=== PATIENT | female | born 1965 | race Caucasian/White ===

== ENCOUNTER 2020-02-23 11:49 | Emergency (ER) | payer OTHER, SELFPAY ==
[2020-02-23 11:58] VITALS: PULSE 96; RESP 18; TEMP 36.6; O2SAT 98; BMI 38.0
--- NOTE | 2020-02-23 12:18 | PC.NURSE ---
neri pa at bedside for initial evaluation
--- NOTE | 2020-02-23 12:19 | PC.NURSE ---
PT INFORMED OF THE TREATMENT PLAN, PT IS AGREEABLE
--- NOTE | 2020-02-23 12:19 | ED.ABDPAIN ---
HPI - Abdominal Pain General Chief Complaint: Abdominal Pain Stated Complaint: r sided pain into back Time Seen by Provider: 02/23/20 12:03 Source: patient History of Present Illness HPI narrative: Patient is a 54-year-old female with a past medical history of hypertension, type 2 diabetes, asthma, kidney failure, MS, pseudoseizures, anxiety, stomach cancer and cervical cancer Presents with 2 days of worsening left-sided abdominal /flank pain as well as numbness and tingling down her left leg. admits to associated vomiting, reduced oral intake, diarrhea and nausea. denies fever chills. Patient was discharged from this hospital on January 02 after admission for intractable abdominal pain. CT of the abdomen and pelvis showed no acute abnormality, patient was evaluated by Dr. Manley from GI, he saw Ms. Moreno outpatient and is planning and endoscopy and colonoscopy in 4 days. She was also evaluated inpatient by Dr. Cooper who recommended an MRI of the lumbar and thoracic spine which came back normal. Patient has had an extensive workup at [facility] for her history of pseudoseizures, is not on any anti epileptic medications. Related Data Allergies Allergy/AdvReac Type Severity Reaction Status Date / Time shellfish derived Allergy Intermediate ANAPHYLAXIS Verified 02/23/20 12:50 [SHELLFISH DERIVED] aspirin [ASPIRIN] Allergy Unknown ANAPHYLAXIS Verified 02/23/20 12:50 gabapentin [GABAPENTIN] Allergy Unknown ANAPHYLAXIS Verified 02/23/20 12:50 ketorolac [From TORADOL] Allergy Unknown HIVES Verified 02/23/20 12:50 Penicillins [PENICILLINS] Allergy Unknown HIVES Verified 02/23/20 12:50 Review of Systems Constitutional: Denies chills, Denies fatigue, Denies fever(s), Denies headache(s), Reports poor appetite and Denies weight loss Reports system reviewed and no additional complaints, except as documented and Denies headache(s) Cardiovascular: Reports Abdominal Distension, Denies chest pain, Denies chest pain at rest, Denies chest pain with activity and Reports dyspnea Respiratory: Reports no additional respiratory complaints, Denies chest congestion, Denies cough and Reports dyspnea Gastrointestinal: Reports abdominal pain (left sided), Denies melena, Reports bloating, Denies hematochezia, Reports change in bowel habits, Denies coffee ground emesis, Denies constipation, Reports GI cramping (when urinating), Denies dyspepsia, Reports diarrhea, Reports nausea, Reports vomiting and Denies hematemesis Genitourinary: Reports no additional female genitourinary complaints, Denies abnormal vaginal bleeding, Denies difficulty voiding, Denies dysuria, Reports flank pain ( Left-sided) and Denies vaginal discharge Reports system reviewed and no additional complaints, except as documented and Denies headache(s) Endocrine: Denies fatigue Allergic/Immunologic: Reports no additional allergic/immunologic complaints Physical Exam Vital Signs: Vital Signs: Vital Signs Temp Pulse Resp Pulse Ox 02/23/20 11:58 98 F 96 18 98 Body Mass Index 38.0 Const: General: cooperative, no acute distress and well developed Nutritional Appearance: obese Orientation/consciousness: patient oriented x3 Limitations: no limitations HENMT: Head: Yes normal to inspection Face and sinus: Yes normal facial exam Neck: Neck: Yes normal visual inspection and Yes full ROM Resp: Effort & Inspection: normal respiratory effort and able to speak in complete sentences Auscultation: clear to auscultation bilaterally, no rales, no rhonchi and no wheezes Cardio: Rate: regular rate Rhythm: regular rhythm Heart sounds: no gallops, no murmurs and no rubs GI: Inspection: Yes obesity Palpation (GI): Soft to palpation and Tenderness to palpation present (GI) ( left-sided tenderness) Auscultation: normal bowel sounds : General: Yes CVA tenderness (left sided) Back/Spine/Pelvis: Back: CVA tenderness (left sided) Thoracic/Lumbar Spine: thoracic and lumbar spine normal to inspection, thoracic spinal tenderness (baseline TTP pain along entire cervical, thoracic and lumbar spine) and straight leg raise positive left at 30 degrees Skin: General skin exam: no rashes or lesions noted Neuro: General: patient oriented x3 Motor exam (neuro): Abnormal motor strength present (4/4 throughout) Deep tendon reflexes (DTR's): Left patellar reflex intensity grade: 2+, Right ankle reflex intensity grade: 2+ and Left ankle reflex intensity grade: 2+ Extrem: General: Yes normal to inspection and Yes full ROM Course Course Course Narrative: Patient is a 54-year-old female with a past medical history of hypertension, type 2 diabetes, asthma, kidney failure, MS, pseudoseizures, anxiety, stomach cancer and cervical cancer Presents with 2 days of worsening left-sided abdominal /flank pain as well as numbness and tingling down her left leg. admits to associated vomiting, reduced oral intake, diarrhea and nausea. denies fever chills. will get EKG, labs and reassess. Will give moderate dose of IV steroids as likely sciatica, patient had a recent MRI of the low back and it was negative. patient also had a recent CT of abdomen and pelvis so I will not repeat this today. patient has not been on antibiotics recently. patient has an appointment for an endoscopy and a colonoscopy in [address] Hathaway. FORMERLY [facility] Past Medical History Medical History (Updated 02/23/20 @ 12:39 by NICOLE Wilcox) Cervical cancer Kidney stones Stomach cancer TIA (transient ischemic attack) Surgical History (Updated 02/23/20 @ 12:46 by NICOLE Wilcox) Total knee replacement status Social History Social History Alcohol intake: current Alcohol intake frequency: holidays/special occasions only Smoked in Last 30 Days: No Use of substances other than those prescribed or required for medical reasons: No Advance Directives: No Advance Directives Information Provided: No
--- NOTE | 2020-02-23 12:25 | ECG_ITS ---
Test Reason : CHEST TIGHT Blood Pressure : / mmHG Vent. Rate : 089 BPM Atrial Rate : 089 BPM P-R Int : 148 ms QRS Dur : 084 ms QT Int : 382 ms P-R-T Axes : 062 077 054 degrees QTc Int : 464 ms Normal sinus rhythm Normal ECG When compared with ECG of 19-NOV-2019 14:01, No significant change was found Heart rate has decreased Referred By: Yanet Gordon Electronically Signed By:CHANDLER DWYER MD
[2020-02-23] MEDS: 0.9 % Sodium Chloride 1,000 ML 999 ML IVCONT (12:36)
[2020-02-23 12:44] LABS: MANUAL DIFF FLAG NO
[2020-02-23 12:45] LABS: Basophils Absolute Auto 0.1 X10*3/uL (0.0-0.2); Basophils Percent Auto 0.6 % (0-2); Eosinophils Absolute Auto 0.2 X10*3/uL (0.0-0.4); Hematocrit 40.4 % (37-47); Imm Gran Abs Auto 0.04 X10*3/uL (0.00-0.03); Imm Gran Pct Auto 0.5 % (0.0-0.4); Lymphocytes Absolute Auto 2.9 X10*3/uL (1.2-4.9); Lymphocytes Percent Auto 33.4 % (20-40); Mean Corpuscular HGB Conc 32.2 g/dl (31.0-35.0); Mean Corpuscular Hemoglobin 28.5 pg (27.0-33.0); Mean Corpuscular Volume 88.6 fL (80-98); Mean Platelet Volume 9.7 fL (9.4-12.3); Monocytes Absolute Auto 0.4 X10*3/uL (0.1-1.2); Monocytes Percent Auto 4.7 % (2-11); Neutrophils Absolute Auto 5.1 X10*3/uL (2.0-8.3); Neutrophils Percent Auto 58.8 % (45-73); Platelet Count 372 X10*3/uL (160-400); Red Blood Count 4.56 X10*6/uL (4.20-5.50); Red Cell Distribution Width 13.2 % (11.0-16.0); White Blood Count 8.6 X10*3/uL (4.8-10.8)
[2020-02-23] MEDS: Morphine Sulfate 2 MG/ML CARTRIDGE 1 MG IVPUSH (13:14)
[2020-02-23] MEDS: predniSONE 20 MG TABLET 40 MG PO (13:15)
[2020-02-23] MEDS: ondansetron HCL 4 MG/2 ML VIAL IVPUSH (13:15)
[2020-02-23 13:36] LABS: Alanine Aminotransferase 30 U/L (0-31); Albumin Level 4.1 g/dL (3.5-5.0); Alkaline Phosphatase 86 U/L (39-117); Anion Gap 14 (12-20); Aspartate Amino Transferase 23 U/L (5-31); Bilirubin Total 0.3 mg/dL (0.0-1.0); Blood Urea Nitrogen 10 mg/dL (9-16); Calcium 8.3 mg/dL (8.4-10.2); Carbon Dioxide 26 mmol/L (22-29); Chloride 98 mmol/L (96-108); Creatinine Clr Calc Pharmacy 56.6; Estimated Glomerular Filt Rate 51; Glucose Random 394 mg/dL (60-115); Lipase 11 U/L (8-78); Potassium 3.8 mmol/l (3.3-5.1); Sodium 134 mmol/L (135-145); Total Protein 6.6 g/dL (6.5-8.0)
[2020-02-23 13:51] LABS: Glucose Urine UA 500 MG/DL (NEG); Leukocyte Esterase Urine NEG (NEG); Nitrite Urine NEG (NEG); Urine Blood NEG (NEG); Urine Ketones NEG (NEG); Urine Protein NEG (NEG-TRACE)
[2020-02-23 13:54] LABS: Appearance Urine CLEAR; Color Urine YELLOW
[2020-02-23 14:00] VITALS: PULSE 98; RESP 20; TEMP 36.6; O2SAT 98
[2020-02-23] MEDS: Insulin Lispro 100 UNIT/ML 3 ML VIAL SUBCUT (14:09)
--- NOTE | 2020-02-23 14:18 | US_ITS ---
EXAMINATION: US RETROPERITONEAL LIMITED (RENAL ONLY) CLINICAL INFORMATION: Left-sided flank and. COMPARISON: CT of December 30, 2019 TECHNIQUE: Bilateral renal ultrasound FINDINGS: RIGHT KIDNEY: 10.9 x 5.5 x 5.7 cm (SAG x AP x TRV). The kidney is normal in size, contour, and echogenicity. Renal cortical thickness is normal. No calculi or focal parenchymal lesions. No hydronephrosis. LEFT KIDNEY: 9.9 x 5.4 x 4.4 cm (SAG x AP x TRV). The kidney is normal in size, contour, and echogenicity. Renal cortical thickness is normal. No calculi or focal parenchymal lesions. No hydronephrosis. IMPRESSION: No evidence of nephrolithiasis. No hydronephrosis..
[2020-02-23 15:12] VITALS: BP 110/57; PULSE 86; RESP 19; TEMP 37; O2SAT 96
--- NOTE | 2020-02-23 16:08 | PC.NURSE ---
RECIEVED FEMALE PATIENT ALERT AND ORIENTED TIMES FOUR. PRESENTLY UNDER EVALUATION. STATES LEFT FLANK PAIN. MD MADE AWARE. PATIENT SKIN PWD. AFEBRILE. WILL MONITOR FOR CHANGES
--- NOTE | 2020-02-23 16:15 | PC.NURSE ---
RE-EVELUATED. PATIENT TO BE MEDICATED FOR PAIN. TO GEOPHYSICAL MANAGER PATIENT
--- NOTE | 2020-02-23 16:17 | PC.NURSE ---
PO TRIAL IN PROGRESS
[2020-02-23] MEDS: Morphine Sulfate 4 MG/ML CARTRIDGE 2 MG IVPUSH (16:23)
--- NOTE | 2020-02-23 16:43 | PC.NURSE ---
POC 92
[2020-02-23 16:45] LABS: Glucose, Whole Blood 92 mg/dL (60-115)
== END 2020-02-23 16:44 | disposition home or self-care (01) ==
PROVIDERS: Physician Assistant; Emergency Provider Emergency Medicine; PCP Family Medicine
DX: M54.42 Lumbago with sciatica, left side (principal); E11.9 Type 2 diabetes mellitus without complications; I10 Essential (primary) hypertension; G35 Multiple sclerosis; Z85.028 Personal history of other malignant neoplasm of stomach; Z85.41 Personal history of malignant neoplasm of cervix uteri; Z87.442 Personal history of urinary calculi; Z86.73 Personal history of transient ischemic attack (TIA), and cerebral infarction without residual deficits
CPT/HCPCS: 36415; 76775; 80053; 81003; 82947; 83690; 85025; 93005; 96361; 96374; 96375; 96376; 99284; J2270; J2405

== ENCOUNTER 2020-02-27 08:44 | Day surgery (SDC) | payer OTHER, SELFPAY ==
[2020-02-25 10:51] VITALS: BMI 38.5
--- NOTE | 2020-02-26 08:39 | HO.ANESPROP2 ---
Documented by User: Shaina Chase 02/26/20 08:45 HPI - Anesthesia Eval Consult details Narrative: 54yo F for EGD and Colonoscopy PMFSH Past Medical History Medical History Anxiety Cervical cancer Diabetes Diarrhea Hx of abdominal pain Kidney stones Pseudoseizures Stomach cancer TIA (transient ischemic attack) Surgical History Surgical History History of esophagogastroduodenoscopy (EGD) History of neck surgery Hx of arthroscopy of knee Hx of cholecystectomy Hx of colonoscopy Hx of sinus surgery Hx of ventral hernia repair Total knee replacement status Social History Social History Alcohol intake: current Alcohol intake frequency: holidays/special occasions only Smoking Status: Never smoker Use of substances other than those prescribed or required for medical reasons: Yes Substance Use Type Other:: vapes medical CBD,THC bid Advance Directives: Yes Advance Directives Information Provided: No Advance Directives on File: No Meds Allergies Allergy/AdvReac Type Severity Reaction Status Date / Time shellfish derived Allergy Intermediate ANAPHYLAXIS Verified 02/23/20 12:50 [SHELLFISH DERIVED] aspirin [ASPIRIN] Allergy Unknown ANAPHYLAXIS Verified 02/23/20 12:50 gabapentin [GABAPENTIN] Allergy Unknown ANAPHYLAXIS Verified 02/23/20 12:50 ketorolac [From TORADOL] Allergy Unknown Hives Verified 02/25/20 10:13 Penicillins [PENICILLINS] Allergy Unknown HIVES Verified 02/23/20 12:50 Home Medications Medication Instructions Recorded Confirmed Type Lactobacillus acidophilus 1 cap PO DAILY 02/25/20 02/25/20 History [Florajen] alprazolam 1 mg PO QID 02/25/20 02/25/20 History carisoprodol 1 tab PO TID PRN 02/25/20 02/25/20 History citalopram 1 tab PO QAM 02/25/20 02/25/20 History fluticasone propion-salmeterol 1 puff PO BID 02/25/20 02/25/20 History [Wixela Inhub] fluticasone propionate INTRANASAL 02/25/20 History insulin glargine [Lantus Solostar 40 unit SUBCUT BEDTIME 02/25/20 02/25/20 History U-100 Insulin] ipratropium bromide 2 spray INTRANASAL BID 02/25/20 02/25/20 History ipratropium-albuterol 1 vial INHALATION TID 02/25/20 02/25/20 History lisinopril-hydrochlorothiazide 0.5 tab PO 02/25/20 History mirtazapine 1 tab PO BEDTIME 02/25/20 02/25/20 History omeprazole 1 tab PO BID 02/25/20 02/25/20 History prazosin 1 - 3 cap PO BEDTIME PRN 02/25/20 02/25/20 History Exam Exam Date and Time: February 26, 2020 0839 Height,Weight and Vital Signs: Height 5 ft Weight 89.358 kg Pertinent Lab Results Pertinent Lab Results: Laboratory Tests 02/23/20 02/23/20 12:33 12:33 WBC 8.6 Hgb 13.0 Hct 40.4 Plt Count 372 Sodium 134 L Potassium 3.8 Chloride 98 BUN 10 Creatinine 1.11 Assessment and Plan Assessment Anesthesia Assessment: Chart Reviewed Documented by User: Suraj Andrews MD 02/27/20 10:29 PMFSH Past Medical History Medical History Anxiety Cervical cancer Diabetes Diarrhea Hx of abdominal pain Kidney stones Pseudoseizures Stomach cancer TIA (transient ischemic attack) Surgical History Surgical History History of esophagogastroduodenoscopy (EGD) History of neck surgery Hx of arthroscopy of knee Hx of cholecystectomy Hx of colonoscopy Hx of sinus surgery Hx of ventral hernia repair Total knee replacement status Social History Social History Alcohol intake: current Alcohol intake frequency: holidays/special occasions only Smoking Status: Never smoker Use of substances other than those prescribed or required for medical reasons: Yes Substance Use Type Other:: vapes medical CBD,THC bid Advance Directives: Yes Advance Directives Information Provided: No Advance Directives on File: No Meds Allergies Allergy/AdvReac Type Severity Reaction Status Date / Time shellfish derived Allergy Intermediate ANAPHYLAXIS Verified 02/23/20 12:50 [SHELLFISH DERIVED] aspirin [ASPIRIN] Allergy Unknown ANAPHYLAXIS Verified 02/23/20 12:50 gabapentin [GABAPENTIN] Allergy Unknown ANAPHYLAXIS Verified 02/23/20 12:50 ketorolac [From TORADOL] Allergy Unknown Hives Verified 02/25/20 10:13 Penicillins [PENICILLINS] Allergy Unknown HIVES Verified 02/23/20 12:50 Home Medications Medication Instructions Recorded Confirmed Type Lactobacillus acidophilus 1 cap PO DAILY 02/25/20 02/25/20 History [Florajen] alprazolam 1 mg PO QID 02/25/20 02/25/20 History carisoprodol 1 tab PO TID PRN 02/25/20 02/25/20 History citalopram 1 tab PO QAM 02/25/20 02/25/20 History fluticasone propion-salmeterol 1 puff PO BID 02/25/20 02/25/20 History [Wixela Inhub] fluticasone propionate INTRANASAL 02/25/20 History insulin glargine [Lantus Solostar 40 unit SUBCUT BEDTIME 02/25/20 02/25/20 History U-100 Insulin] ipratropium bromide 2 spray INTRANASAL BID 02/25/20 02/25/20 History ipratropium-albuterol 1 vial INHALATION TID 02/25/20 02/25/20 History lisinopril-hydrochlorothiazide 0.5 tab PO 02/25/20 History mirtazapine 1 tab PO BEDTIME 02/25/20 02/25/20 History omeprazole 1 tab PO BID 02/25/20 02/25/20 History prazosin 1 - 3 cap PO BEDTIME PRN 02/25/20 02/25/20 History Exam Airway Mallampati Class: IV TM Dist: >3cm Neck ROM: Full Loose/Missing/Broken Teeth: No Heart: rrr Lungs: nl Other: ao Assessment and Plan Assessment Anesthesia Assessment: Anesthesia Plan Discussed and Chart Reviewed Final Anesthetic Review NPO: Yes ASA Class: III Final Preanesthetic Review: No Changes in Pt Med Stat, Meds/Allgs Chart Reviewed, Consent Obtained/Reviewed and Anes Risks/Benef Reviewed Patient Risk: High Procedure Risk: Intermediate Assessment/Block/Sedation in SS: Assess/Block/Sedation-SS Anesthetic Plan Anesthetic Plan: MAC: Disposition: Standard PACU
[2020-02-27 09:19] VITALS: BP 126/85; PULSE 95; RESP 16; TEMP 36.2; O2SAT 96
[2020-02-27 09:26] LABS: Glucose, Whole Blood 157 mg/dL (60-115)
[2020-02-27] MEDS: Lactated Ringers 1,000 ML 100 ML IVCONT (09:30)
[2020-02-27 10:04] LABS: Glucose, Whole Blood 157 mg/dL (60-115)
--- NOTE | 2020-02-27 10:11 | MHC.SHP ---
Pre-Procedural Eval Section B Chief Complaint: DIARRHEA Relevant Social History: None Present Medications: see Short Stay Collaborative assessment Medical History: Significant History (pseudoseizures, cholecystectomy, DM, LUISA, HTN, TIA) History of Previous Operations: Relevant previous surgery/procedure and date(s) (cholecystectomy) Allergies: Allergies Allergy/AdvReac Type Severity Reaction Status Date / Time shellfish derived Allergy Intermediate ANAPHYLAXIS Verified 02/23/20 12:50 [SHELLFISH DERIVED] aspirin [ASPIRIN] Allergy Unknown ANAPHYLAXIS Verified 02/23/20 12:50 gabapentin [GABAPENTIN] Allergy Unknown ANAPHYLAXIS Verified 02/23/20 12:50 ketorolac [From TORADOL] Allergy Unknown Hives Verified 02/25/20 10:13 Penicillins [PENICILLINS] Allergy Unknown HIVES Verified 02/23/20 12:50 Review of Systems Sugical H&P ROS: Negative: Constitution, Cardiovascular, Respiratory, Neurological, Psychiatric, Hem-Onc, Allergic/Immunologic, Gastrointestinal, Genitourinary, Musculoskeletal, Integumentary, Endocrine and Eyes/Ears/Nose/Throat Exam Surgical H&P Exam: Normal: HEENT, Normal: Heart, Normal: Lungs, Normal: Extremities, Normal: Abdomen, Normal: Skin and Normal: Neurological Plan Diagnosis/Plan: Unchanged Patient has been examined and remains a candidate for the planned procedure
--- NOTE | 2020-02-27 11:12 | PM.OP ---
Brief Operative Note Date of procedure: 02/27/20 Pre-op diagnosis: abdo pain, altered bowel habit Post-op diagnosis: same Procedure: egd and colon-see op note Surgeon: Jorge Hathaway MD Anesthesia: MAC Estimated blood loss (mL): 5 Condition: stable Disposition: PACU
--- NOTE | 2020-02-27 11:12 | W.PM.OPN ---
Operative Note Operative Note Narrative: Operative Information Procedure Description: EGD, Colonoscopy FLEXIBLE TRANSORAL UPPER GASTROINTESTINAL ENDOSCOPY AND COLONOSCOPY PROCEDURE NOTE UPPER ENDOSCOPY Consent: Indications for the procedure and potential complications of bleeding, perforation, reaction to medications and missed diagnosis were discussed with the patient and informed consent was obtained. Instrument: Olympus GIF H 190 J mid size upper endoscope Monitoring: Vital signs and clinical assessment, continuous EKG monitoring, Pulse oximetry, Carbon Dioxide monitoring and blood pressure monitoring were done throughout the procedure. Procedure: The patient was placed in the left lateral decubitis position and pre-procedure medications were administered and a bite block was placed. The endoscope was inserted into the mouth and advanced under direct vision to the third part of duodenum. A careful inspection was made as the upper endoscope was withdrawn including a retroflexed examination of the proximal stomach; Findings and interventions are described below. Findings: Larynx:normal Esophagus: GE junction at 35 cm, diaphragm hiatus at 35 cm, normal mucosa-bx taken Stomach:Scattered erythema. Biopsies were obtained. Grade 2 flap valve on retroflexed examination of the cardia. bilious fluid also noted in the stomach. Duodenum: Normal bulb and descending duodenum, bx taken Intervention: Biopsies as noted above COLONOSCOPY Instrument: Olympus variable stiffness pediatric scope 190L Colonoscopy Monitoring: Vital signs and clinical assessment, continuous EKG monitoring, Pulse oximetry, Carbon Dioxide monitoring and blood pressure monitoring were done throughout the procedure. Colon withdrawal time was 20 minutes. Procedure: The patient was placed in the left lateral decubitis position and pre-procedure medications were administered. After a digital rectal examination of the ano-rectum, the video colonoscope was inserted into the rectum and advanced through the colon to the cecum/TI. The colonoscope was slowly withdrawn in a retrograde panoramic fashion and the colon mucosa was carefully examined including a retroflexed view of the rectum. Findings and interventions are described below. Procedure Difficulty: Random colon bx taken Findings: Terminal Ileum-normal, bx taken Cecum:normal Ascending Colon: normal, 8-10 mm sessile polyp removed with cold snare Transverse Colon -normal Descending Colon:normal Sigmoid Colon: normal Rectum: Retroflexion with small internal hemorrhoids, grade I, also 7-8 mm sessile polyp removed with forceps Anorectum - normal Colon preparation: [place] Bowel Preparation Scale Right colon; 3 Transverse colon: 3 Left colon; 3 (0 = Unprepared colon segment with mucosa not seen due to solid stool that cannot be cleared. 1 = Portion of mucosa of the colon segment seen, but other areas of the colon segment not well seen due to staining, residual stool and/or opaque liquid. 2 = Minor amount of residual staining, small fragments of stool and/or opaque liquid, but mucosa of colon segment seen well. 3 = Entire mucosa of colon segment seen well with no residual staining, small fragments of stool or opaque liquid) Impression and Post Procedure Diagnosis: Endoscopy Findings: gastritis Colonoscopy Findings: internal hemorrhoids polyps Plan: Await Pathology results Repeat Colonoscopy in 5 years if adenomatous polyps or 10 if hyperplastic or earlier if clinically indicated High fiber diet leaflet avoid straining at stool, epsom salts and sitz bath prn , anusol supps or cream prn Above findings were reviewed with the patient and relevant handouts were provided if indicated.
[2020-02-27 11:17] VITALS: BP 112/78; PULSE 76; RESP 20; TEMP 36.3; O2SAT 99
[2020-02-27 11:32] VITALS: BP 103/76; PULSE 78; RESP 18; O2SAT 100
[2020-02-27 11:47] VITALS: BP 108/81; PULSE 76; RESP 18; O2SAT 95
[2020-02-27] MEDS: ondansetron HCL 4 MG/2 ML VIAL IVPUSH (11:49)
[2020-02-27 12:00] VITALS: BP 111/76; PULSE 77; RESP 20; O2SAT 96
== END 2020-02-27 12:45 | disposition home or self-care (01) ==
PROVIDERS: PCP Family Medicine; Visit Provider Internal Medicine Gastroenterology
PROC: (CPT 45385; principal; 2020-02-27 11:10)
DX: R19.7 Diarrhea, unspecified (principal); D12.2 Benign neoplasm of ascending colon; D12.8 Benign neoplasm of rectum; K64.0 First degree hemorrhoids; K29.50 Unspecified chronic gastritis without bleeding; K44.9 Diaphragmatic hernia without obstruction or gangrene; G47.33 Obstructive sleep apnea (adult) (pediatric); I10 Essential (primary) hypertension; E11.9 Type 2 diabetes mellitus without complications; Z79.4 Long term (current) use of insulin; Z79.899 Other long term (current) drug therapy; Z85.028 Personal history of other malignant neoplasm of stomach; Z85.41 Personal history of malignant neoplasm of cervix uteri; Z86.73 Personal history of transient ischemic attack (TIA), and cerebral infarction without residual deficits; Z90.49 Acquired absence of other specified parts of digestive tract; Z87.442 Personal history of urinary calculi; Z88.6 Allergy status to analgesic agent; Z88.0 Allergy status to penicillin; Z91.013 Allergy to seafood; Z88.8 Allergy status to other drugs, medicaments and biological substances; Z96.659 Presence of unspecified artificial knee joint
CPT/HCPCS: 45385; 45380; 43239; 82947; 88305; 88313; 88341; 88342; J2405

== ENCOUNTER 2020-02-29 13:02 | Emergency (ER) | payer OTHER, SELFPAY ==
[2020-02-29 13:20] VITALS: BP 109/72; PULSE 105; RESP 19; TEMP 36.1; O2SAT 97; BMI 38.5
--- NOTE | 2020-02-29 13:29 | CT_ITS ---
EXAMINATION: CT HEAD WITHOUT CONTRAST CLINICAL INFORMATION: Fall, trauma, pain COMPARISON: CT brain noncontrast 09/12/2019 TECHNIQUE: Contiguous axial imaging was performed from the skull base to vertex without intravenous administration of contrast. Additional 2-D coronal and sagittal reformatted images are generated on the CT workstation and uploaded to PACS. DOSE LOWERING TECHNIQUES: This CT examination was performed using dose optimization techniques as appropriate, variously including the following: *Automated exposure control *Adjustment of mA and/or kV according to patient size (this includes techniques or standardized protocols for targeted exams where dose is matched to indication/reason for exam; i.e. extremities or head) *Use of iterative reconstruction technique DLP: 654 mGy-cm FINDINGS: There is no intracranial hemorrhage, hematoma, or extra-axial fluid collection. The ventricles are normal in size. There is no hydrocephalus, edema, or mass effect. The de leon-white matter differentiation appears symmetric. There is no visible acute territorial infarct or mass lesion. The calvarium appears intact. There is no pneumocephalus or orbital emphysema. The visualized sinuses and middle ears and mastoid air cells show no significant mucosal thickening. There are no air-fluid levels. CT/CT head/brain wo con IMPRESSION: No acute intracranial abnormality.
--- NOTE | 2020-02-29 13:29 | XR_ITS ---
EXAMINATION: LEFT KNEE. LEFT TIBIA AND FIBULA. CLINICAL INFORMATION: Fall, pain. COMPARISON: None TECHNIQUE: 2 views left tibia and fibula. 3 views left knee. FINDINGS: LEFT TIBIA AND FIBULA: There is no visible acute fracture or dislocation or subluxation seen. The soft tissues are normal. LEFT KNEE: There is no visible acute fracture, dislocation or subluxation. There is moderate superior patellar spurring. No visible fracture or dislocation seen. There is no abnormal joint effusion. XR/XR tibia fibula LT 2V IMPRESSION: Unremarkable left tibia and fibula. Moderate superior patellar enthesophyte. No visible fracture or dislocation.
--- NOTE | 2020-02-29 13:29 | CT_ITS ---
EXAMINATION: CT CERVICAL SPINE WITHOUT CONTRAST CLINICAL INFORMATION: Fall, trauma, pain COMPARISON: CT cervical spine 11/17/2017 TECHNIQUE: Multidetector volumetric CT imaging of the cervical spine is performed without contrast in the axial plane. Additional 2D reformatted coronal and sagittal images are generated on the CT workstation and uploaded to PACS. DOSE LOWERING TECHNIQUES: This CT examination was performed using dose optimization techniques as appropriate, variously including the following: *Automated exposure control *Adjustment of mA and/or kV according to patient size (this includes techniques or standardized protocols for targeted exams where dose is matched to indication/reason for exam; i.e. extremities or head) *Use of iterative reconstruction technique DLP: 656 mGy-cm FINDINGS: There are postsurgical changes again noted with anterior cervical fusion C3-C7. There are anterior plates and screws at C3-C4 and C6-C7. Hardware appears intact. The C6-C7 disc is still visible without complete osseous fusion similar to prior study. There is no destructive process or prevertebral soft tissue swelling. The craniocervical junction is normal. The odontoid appears intact. There is no fracture or vertebral compression or spondylolisthesis. There is no perched facet. There is straightening of the cervical lordosis. There is no apical pneumothorax. CT/CT cervical spine wo con IMPRESSION: 1. No acute bony abnormality or prevertebral soft tissue swelling. 2. Postsurgical changes C3-C7.
--- NOTE | 2020-02-29 13:29 | XR_ITS ---
EXAMINATION: LEFT KNEE. LEFT TIBIA AND FIBULA. CLINICAL INFORMATION: Fall, pain. COMPARISON: None TECHNIQUE: 2 views left tibia and fibula. 3 views left knee. FINDINGS: LEFT TIBIA AND FIBULA: There is no visible acute fracture or dislocation or subluxation seen. The soft tissues are normal. LEFT KNEE: There is no visible acute fracture, dislocation or subluxation. There is moderate superior patellar spurring. No visible fracture or dislocation seen. There is no abnormal joint effusion. XR/XR knee LT 2V IMPRESSION: Unremarkable left tibia and fibula. Moderate superior patellar enthesophyte. No visible fracture or dislocation.
--- NOTE | 2020-02-29 13:29 | XR_ITS ---
EXAMINATION: XR ANKLE, LEFT XR FOOT, LEFT CLINICAL INFORMATION: Fall, trauma, pain COMPARISON: None TECHNIQUE: 2 views left ankle, 3 views left foot, and a lateral view of the combined left ankle and foot are obtained for a total of 6 views. FINDINGS: There is a transverse fracture base fifth metatarsal. The remainder of the left foot shows no fracture or dislocation. The malleoli are intact and the ankle mortise is symmetric. The talar dome shows no osteochondral lesion. There are small posterior and plantar calcaneal spurs. XR/XR ankle LT 2V IMPRESSION: 1. Foot: Transverse fracture base 5th metatarsal. 2. Ankle: No fracture or dislocation.
--- NOTE | 2020-02-29 13:29 | XR_ITS ---
EXAMINATION: XR ANKLE, LEFT XR FOOT, LEFT CLINICAL INFORMATION: Fall, trauma, pain COMPARISON: None TECHNIQUE: 2 views left ankle, 3 views left foot, and a lateral view of the combined left ankle and foot are obtained for a total of 6 views. FINDINGS: There is a transverse fracture base fifth metatarsal. The remainder of the left foot shows no fracture or dislocation. The malleoli are intact and the ankle mortise is symmetric. The talar dome shows no osteochondral lesion. There are small posterior and plantar calcaneal spurs. XR/XR foot LT 2V IMPRESSION: 1. Foot: Transverse fracture base 5th metatarsal. 2. Ankle: No fracture or dislocation.
--- NOTE | 2020-02-29 14:05 | ED_ITS ---
HPI - Fall General Chief Complaint: Extremity Injury, Lower Stated Complaint: fall, ankle injury Time Seen by Provider: 02/29/20 13:14 Source: patient Mode of arrival: ambulatory Limitations: no limitations History of Present Illness HPI Narrative: 54-year-old female with a past medical history of diabetes, depression, hypertension, CKD, multiple sclerosis, seizures, sleep apnea here with mechanical fall. The patient tells me she was leaving her house and tripped falling down approximately 6 stairs striking her left side of her body. She is here complaining of left lower extremity pain, left forearm pain and headache. As well as neck pain. The patient tells me she did strike her head. She is not on anticoagulation. There was no loss of consciousness. She initially had some dizziness that is now resolved. She does have a mild headache. No photophobia, nausea or vomiting. she denies back, chest, abdominal pain. MD complaint: fall Onset (ago): hour(s) Fall from: standing Fall witnessed: yes, by family Place fall occurred: home Loss of consciousness: none Prolonged down time: no Symptoms prior to fall: none Context: tripped/slipped Location of injury: head Location of injury - extremities: left: forearm, knee, lower leg and ankle Severity: moderate Quality: sharp Associated symptoms (after fall): headache and neck pain Related Data Home Medications Medication Instructions Recorded Confirmed Lactobacillus acidophilus 1 cap PO DAILY 02/25/20 02/25/20 [Florajen] alprazolam 1 mg PO QID 02/25/20 02/25/20 carisoprodol 1 tab PO TID PRN 02/25/20 02/25/20 citalopram 1 tab PO QAM 02/25/20 02/25/20 fluticasone propion-salmeterol 1 puff PO BID 02/25/20 02/25/20 [Wixela Inhub] fluticasone propionate INTRANASAL 02/25/20 insulin glargine [Lantus Solostar 40 unit SUBCUT BEDTIME 02/25/20 02/25/20 U-100 Insulin] ipratropium bromide 2 spray INTRANASAL BID 02/25/20 02/25/20 ipratropium-albuterol 1 vial INHALATION TID 02/25/20 02/25/20 lisinopril-hydrochlorothiazide 0.5 tab PO 02/25/20 mirtazapine 1 tab PO BEDTIME 02/25/20 02/25/20 omeprazole 1 tab PO BID 02/25/20 02/25/20 prazosin 1 - 3 cap PO BEDTIME PRN 02/25/20 02/25/20 Previous Rx's Medication Instructions Recorded oxycodone 5 mg PO Q8H PRN #10 tab 02/29/20 Allergies Allergy/AdvReac Type Severity Reaction Status Date / Time shellfish derived Allergy Intermediate ANAPHYLAXIS Verified 02/23/20 12:50 [SHELLFISH DERIVED] aspirin [ASPIRIN] Allergy Unknown ANAPHYLAXIS Verified 02/23/20 12:50 gabapentin [GABAPENTIN] Allergy Unknown ANAPHYLAXIS Verified 02/23/20 12:50 ketorolac [From TORADOL] Allergy Unknown Hives Verified 02/25/20 10:13 Penicillins [PENICILLINS] Allergy Unknown HIVES Verified 02/23/20 12:50 Review of Systems Review of Systems: Yes all other systems are reviewed and are negative Constitutional: Constitutional: Reports no additional constitutional complaints, Denies body ache(s), Denies chills, Denies fever(s), Reports headache(s) and Denies weakness Eyes: Eyes: Reports no additional eye complaints and Denies change in vision ENT: Reports system reviewed and no additional complaints, except as documented, Denies dizziness, Reports headache(s), Denies nasal congestion, Denies nasal discharge and Denies neck pain Cardiovascular: Cardiovascular: Reports no additional cardiovascular complaints, Denies chest pain, Denies leg edema and Denies dyspnea Respiratory: Respiratory: Reports no additional respiratory complaints, Denies cough and Denies dyspnea Gastrointestinal: Gastrointestinal: Reports no additional gastrointestinal complaints, Denies abdominal pain, Denies diarrhea, Denies nausea and Denies vomiting Genitourinary: Genitourinary: Reports no additional female genitourinary complaints and Denies urinary incontinence Musculoskeletal: Musculoskeletal: Reports no additional musculoskeletal complaints, Denies back pain, Reports arthralgias, Reports joint swelling, Denies neck pain, Denies numbness and Denies tingling Integumentary/Breasts: Skin/Breast: Reports system reviewed and no additional complaints, except as docu and Denies rash Neurologic: Reports system reviewed and no additional complaints, except as documented, Denies Abnormal speech present, Denies dizziness, Reports headache(s), Denies numbness, Denies tingling and Denies weakness [facility] Past Medical History Attestation statement: The following information was validated with the patient. Source: old records reviewed, obtained from family and nursing notes reviewed Medical History Anxiety Cervical cancer Diabetes Diarrhea Hx of abdominal pain Kidney stones Pseudoseizures Stomach cancer TIA (transient ischemic attack) Surgical History History of esophagogastroduodenoscopy (EGD) History of neck surgery Hx of arthroscopy of knee Hx of cholecystectomy Hx of colonoscopy Hx of sinus surgery Hx of ventral hernia repair Total knee replacement status Social History Social History Alcohol intake: never Smoking Status: Unknown if ever smoked Smoked in Last 30 Days: No Use of substances other than those prescribed or required for medical reasons: No Advance Directives: No Advance Directives Information Provided: Yes Physical Exam Vital Signs: Vital Signs: Vital Signs Temp Pulse Resp BP Pulse Ox 02/29/20 16:35 98.0 F 94 17 119/90 H 96 02/29/20 15:54 88 16 115/76 99 02/29/20 13:20 97.0 F 105 H 19 109/72 97 Body Mass Index 38.5 Const: General: cooperative, healthy appearing, comfortable and no acute distress Orientation/consciousness: patient oriented x3 Limitations: no limitations HENMT: Other: no palpable bogginess, crepitus or swelling of the head Head: Yes normal to inspection Ears: hearing grossly normal bilaterally General nose exam: Normal external nose present Face and sinus: Yes normal facial exam Mouth: Normal oral and palatal mucosa present Throat: Yes posterior oropharynx normal Eyes: General: appearance normal, both eyes and all related structures Pupils: Equal, round and reactive pupils present Neck: Other: Lower cervical tenderness. No step-offs or deformities. Full range of motion. Neck: Yes normal visual inspection Chest: Chest palpation & inspection: normal inspection of the chest Resp: Effort & Inspection: normal respiratory effort Auscultation: clear to auscultation bilaterally Cardio: Rate: regular rate Rhythm: regular rhythm Peripheral pulses: Peripheral pulses 2+ throughout GI: Inspection: Yes normal to inspection Palpation (GI): Soft to palpation and nontender Auscultation: normal bowel sounds Back/Spine/Pelvis: Thoracic/Lumbar Spine: thoracic and lumbar spine normal to inspection Skin: General skin exam: no rashes or lesions noted Neuro: General: patient oriented x3, Normal light touch and pain sensation, no focal motor deficits and normal sensation to monofilament Cranial nerves: Yes CN's II-XII intact bilaterally and Yes Equal, round and reactive pupils present Cognition (Neuro): normal cognition Speech: No Abnormal speech present Gait exam (Neuro): Normal gait present Motor exam (neuro): 5/5 motor strength present throughout Sensory Exam: Normal double simultaneous s timulation for sensation Deep tendon reflexes (DTR's): Right patellar reflex intensity grade: 2+ and Left patellar reflex intensity grade: 2+ Coordination: [id number] test normal and [id number] test normal Extrem: Other: The patient has tenderness and swelling over the lateral ankle and 5th metatarsal. She has pain with flexion and extension of the ankle but is able. She is neurovascularly intact distally. She has tenderness over the entire left anterior biggs with no obvious deformity, swelling or ecchymosis. She has swelling and tenderness over the anterior knee and has pain with flexion but is able to flex and extend the knee. Small abrasion over the lateral left forearm with no palpable bony abnormality. Full range of motion General: Yes normal to inspection Course Course Course Narrative: patient here with complaints of headache, neck pain, left lo wer extremity pain and left forearm pain and abrasions status post mechanical fall just prior to arrival. Exam shows some swelling and tenderness over the left lower extremity so patient will need imaging. She has a small abrasion to left forearm with no bony abnormality in this wound was cleaned and bandaged. She is complaining of a headache and neck pain. She is neurologically intact. Will check CT head and neck. 1400- Staff was called to the x-ray room as the patient was not responding to x-ray staff. She was noted to be lying on the x-ray table with her eyes closed. She responded to verbal stimuli by staff. There was no seizure activity noted. She was able to answer all questions appropriately and was brought back out to her room after imaging. 1430-[place] [facility] [place] have been exposed to COVID 19 during her outpatient procedure 02/26. She is seeking testing. No symptoms. 1600- X-ray show a left metatarsal fracture of the 5th metatarsal at the base. There is no displacement. patient was placed in a orthopedic boot and was recommended to limit weight-bearing and follow up with Orthopedics. Her additional x-rays were unremarkable and a CT of her head and neck were negative. Reviewed worrisome signs and symptoms and when to return to the emergency department. Comfortable with discharge home. MDM - Fall Imaging Data foot xray: Attestation: I personally reviewed and interpreted this imaging study as follows: My impression: left 5th metatarsal fracture Radiologist's impression: EXAMINATION: XR ANKLE, LEFT XR FOOT, LEFT CLINICAL INFORMATION: Fall, trauma, pain COMPARISON: None TECHNIQUE: 2 views left ankle, 3 views left foot, and a lateral view of the combined left ankle and foot are obtained for a total of 6 views. FINDINGS: There is a transverse fracture base fifth metatarsal. The remainder of the left foot shows no fracture or dislocation. The malleoli are intact and the ankle mortise is symmetric. The talar dome shows no osteochondral lesion. There are small posterior and plantar calcaneal spurs. XR/XR foot LT 2V IMPRESSION: 1. Foot: Transverse fracture base 5th metatarsal. 2. Ankle: No fracture or dislocation. knee and tibia/fibia left xray: Attestation: I personally reviewed and interpreted this imaging study as follows: My impression: unremarkable Radiologist's impression: EXAMINATION: LEFT KNEE. LEFT TIBIA AND FIBULA. CLINICAL INFORMATION: Fall, pain. COMPARISON: None TECHNIQUE: 2 views left tibia and fibula. 3 views left knee. FINDINGS: LEFT TIBIA AND FIBULA: There is no visible acute fracture or dislocation or subluxation seen. The soft tissues are normal. LEFT KNEE: There is no visible acute fracture, dislocation or subluxation. There is moderate superior patellar spurring. No visible fracture or dislocation seen. There is no abnormal joint effusion. XR/XR knee LT 2V IMPRESSION: Unremarkable left tibia and fibula. Moderate superior patellar enthesophyte. No visible fracture or dislocation. ct head: Attestation: I personally reviewed and interpreted this imaging study as follows: My impression: unremarkable Radiologist's impression: EXAMINATION: CT HEAD WITHOUT CONTRAST CLINICAL INFORMATION: Fall, trauma, pain COMPARISON: CT brain noncontrast 09/12/2019 TECHNIQUE: Contiguous axial imaging was performed from the skull base to vertex without intravenous administration of contrast. Additional 2-D coronal and sagittal reformatted images are generated on the CT workstation and uploaded to PACS. DOSE LOWERING TECHNIQUES: This CT examination was performed using dose optimization techniques as appropriate, variously including the following: *Automated exposure control *Adjustment of mA and/or kV according to patient size (this includes techniques or standardized protocols for targeted exams where dose is matched to indication/reason for exam; i.e. extremities or head) *Use of iterative reconstruction technique DLP: 654 mGy-cm FINDINGS: There is no intracranial hemorrhage, hematoma, or extra-axial fluid collection. The ventricles are normal in size. There is no hydrocephalus, edema, or mass effect. The de leon-white matter differentiation appears symmetric. There is no visible acute territorial infarct or mass lesion. The calvarium appears intact. There is no pneumocephalus or orbital emphysema. The visualized sinuses and middle ears and mastoid air cells show no significant mucosal thickening. There are no air-fluid levels. CT/CT head/brain wo con IMPRESSION: No acute intracranial abnormality. cervical ct: Attestation: I personally reviewed and interpreted this imaging study as follows: Radiologist's impression: FINDINGS: There are postsurgical changes again noted with anterior cervical fusion C3-C7. There are anterior plates and screws at C3-C4 and C6-C7. Hardware appears intact. The C6-C7 disc is still visible without complete osseous fusion similar to prior study. There is no destructive process or prevertebral soft tissue swelling. The craniocervical junction is normal. The odontoid appears intact. There is no fracture or vertebral compression or spondylolisthesis. There is no perched facet. There is straightening of the cervical lordosis. There is no apical pneumothorax. CT/CT cervical spine wo con IMPRESSION: 1. No acute bony abnormality or prevertebral soft tissue swelling. 2. Postsurgical changes C3-C7. Discharge Plan Discharge Clinical Impression: Foot fracture, left Qualifiers: Encounter type: initial encounter Fracture type: closed Qualified Code(s): S92.902A - Unspecified fracture of left foot, initial encounter for closed fracture Patient Disposition: Home, Self-Care Instructions: Foot Fracture in Adults (ED) Additional Instructions: ice, elevation Use boot for walking and limit weight bearing Prescriptions: New oxycodone 5 mg tablet 5 mg PO Q8H PRN (Reason: pain) Qty: 10 RF: 0 No Action carisoprodol 350 mg tablet 1 tab PO TID PRN (Reason: Spasms) RF: 0 citalopram 40 mg tablet 1 tab PO QAM RF: 0 lisinopril-hydrochlorothiazide 20-25 mg tablet 0.5 tab PO RF: 0 fluticasone propion-salmeterol [Wixela Inhub] 250-50 mcg/dose blister with device 1 puff PO BID RF: 0 ipratropium-albuterol 0.5 mg-3 mg(2.5 mg base)/3 mL solution for nebulization 1 vial inhalation TID RF: 0 prazosin 1 mg capsule 1 - 3 cap PO BEDTIME PRN (Reason: nightmares) RF: 0 mirtazapine 30 mg tablet 1 tab PO BEDTIME RF: 0 fluticasone propionate 50 mcg/actuation spray,suspension intranasal RF: 0 ipratropium bromide 0.03 % spray,non-aerosol 2 spray intranasal BID RF: 0 Lantus Solostar U-100 Insulin 100 unit/mL (3 mL) insulin pen 40 unit subcut BEDTIME RF: 0 omeprazole 20 mg tablet,delayed release (DR/EC) 1 tab PO BID RF: 0 Florajen 460 mg (20 billion cell) capsule 1 cap PO DAILY RF: 0 alprazolam 1 mg Tablet 1 mg PO QID RF: 0 Referrals: Smith Esparza MD [Physician] - 2 days Interventions: ED Discharge Assessment Last Done: 02/29/20 16:39 Discharge Date/Time: 02/29/20 16:40
[2020-02-29 15:54] VITALS: BP 115/76; PULSE 88; RESP 16; O2SAT 99
[2020-02-29] MEDS: oxyCODONE HCl Immed Release 5 MG TABLET PO (15:54)
[2020-02-29 16:35] VITALS: BP 119/90; PULSE 94; RESP 17; TEMP 36.7; O2SAT 96
== END 2020-02-29 16:40 | disposition home or self-care (01) ==
PROVIDERS: Nurse Practitioner Family; Emergency Provider Emergency Medicine; PCP Family Medicine
DX: S92.352A Displaced fracture of fifth metatarsal bone, left foot, initial encounter for closed fracture (principal); S50.812A Abrasion of left forearm, initial encounter; W10.8XXA Fall (on) (from) other stairs and steps, initial encounter; Z20.828 Contact with and (suspected) exposure to other viral communicable diseases; M25.562 Pain in left knee; R51.9 Headache, unspecified; M54.2 Cervicalgia; E11.9 Type 2 diabetes mellitus without complications; Y93.89 Activity, other specified; Y92.018 Other place in single-family (private) house as the place of occurrence of the external cause; Y99.9 Unspecified external cause status; Z85.41 Personal history of malignant neoplasm of cervix uteri; Z86.73 Personal history of transient ischemic attack (TIA), and cerebral infarction without residual deficits; Z96.659 Presence of unspecified artificial knee joint
CPT/HCPCS: 70450; 72125; 73560; 73590; 73600; 73620; 87635; 99284

== ENCOUNTER 2020-03-03 18:27 | Emergency (ER) | payer OTHER, SELFPAY ==
--- NOTE | 2020-03-03 20:26 | ED.GENADULT ---
HPI - General Adult General Chief complaint: Extremity Problem Stated complaint: leg pain Time Seen by Provider: 03/03/20 20:25 Source: patient Mode of arrival: wheelchair Limitations: no limitations History of Present Illness HPI narrative: Patient seen here couple days ago for foot injury status post fall resulting in med also fracture placed any ortho boot crutches with plan for follow-up with Orthopedics she has not appointments scheduled in a few days however she ran out of her pain medication and was told to come here by Ortho. She otherwise denies any new injuries. No fever / rash. Onset (ago): day(s) Severity: moderate Exacerbating factors: none Treatments prior to arrival: none Related Data Home Medications Medication Instructions Recorded Confirmed Lactobacillus acidophilus 1 cap PO DAILY 02/25/20 02/25/20 [Florajen] alprazolam 1 mg PO QID 02/25/20 02/25/20 carisoprodol 1 tab PO TID PRN 02/25/20 02/25/20 citalopram 1 tab PO QAM 02/25/20 02/25/20 fluticasone propion-salmeterol 1 puff PO BID 02/25/20 02/25/20 [Wixela Inhub] fluticasone propionate INTRANASAL 02/25/20 insulin glargine [Lantus Solostar 40 unit SUBCUT BEDTIME 02/25/20 02/25/20 U-100 Insulin] ipratropium bromide 2 spray INTRANASAL BID 02/25/20 02/25/20 ipratropium-albuterol 1 vial INHALATION TID 02/25/20 02/25/20 lisinopril-hydrochlorothiazide 0.5 tab PO 02/25/20 mirtazapine 1 tab PO BEDTIME 02/25/20 02/25/20 omeprazole 1 tab PO BID 02/25/20 02/25/20 prazosin 1 - 3 cap PO BEDTIME PRN 02/25/20 02/25/20 Previous Rx's Medication Instructions Recorded oxycodone 5 mg PO Q8H PRN #10 tab 02/29/20 oxycodone 5 mg PO BID PRN #10 tab 03/03/20 Allergies Allergy/AdvReac Type Severity Reaction Status Date / Time shellfish derived Allergy Intermediate ANAPHYLAXIS Verified 02/23/20 12:50 [SHELLFISH DERIVED] aspirin [ASPIRIN] Allergy Unknown ANAPHYLAXIS Verified 02/23/20 12:50 gabapentin [GABAPENTIN] Allergy Unknown ANAPHYLAXIS Verified 02/23/20 12:50 ketorolac [From TORADOL] Allergy Unknown Hives Verified 02/25/20 10:13 Penicillins [PENICILLINS] Allergy Unknown HIVES Verified 02/23/20 12:50 Review of Systems Review of Systems: Constitutional: No Weight loss, No Fever, No Chills, No Night Sweats, No Fatigue, No Malaise ENT/Mouth: No Hearing loss, No Ear Pain, No Nasal Congestion, No Sinus Pain, No Hoarseness, No sore throat, No Rhinorrhea, No Swallowing Difficulty Eyes: No Eye Pain, No Swelling, No Redness, No Foreign Body, No Discharge, No Vision Changes Cardiovascular: No Chest Pain, No SOB, No Dyspnea on Exertion, No Orthopnea, No Edema, No Palpitations Respiratory: No Cough, No Sputum, No Wheezing, No Smoke Exposure, No Dyspnea Musculoskeletal: No joint pain, No Myalgias, No Joint Swelling - as noted Skin: No Skin Lesions, No rash Neuro: No Weakness, No Numbness, No Paresthesias, No Loss of Consciousness, No Dizziness, No Headache Psych: No Anxiety/Panic, No Depression, No SI/HI/AH/VH, No Social Issues Heme/Lymph: No Bruising, No Bleeding,No Lymphadenopathy Endocrine: No Polyuria, No Polydipsia, No Temperature Intolerance Yes all other systems are reviewed and are negative PMFSH Past Medical History Attestation statement: The following information was validated with the patient. Medical History Anxiety Cervical cancer Diabetes Diarrhea Hx of abdominal pain Kidney stones Pseudoseizures Stomach cancer TIA (transient ischemic attack) Surgical History History of esophagogastroduodenoscopy (EGD) History of neck surgery Hx of arthroscopy of knee Hx of cholecystectomy Hx of colonoscopy Hx of sinus surgery Hx of ventral hernia repair Total knee replacement status Social History Social History Alcohol intake: never Smoking Status: Never smoker Physical Exam Vital Signs: Vital Signs: Body Mass Index 38.5 Reviewed Const: General: cooperative and healthy appearing; No acute distress or intoxicated appearing Nutritional Appearance: average body habitus Orientation/consciousness: patient oriented x3 Chest: Chest palpation & inspection: normal inspection of the chest Resp: Effort & Inspection: normal respiratory effort Cardio: Jugular venous distension: no JVD GI: Inspection: Yes normal to inspection Percussion: Yes normal to percussion Auscultation: normal bowel sounds : General: Yes no CVA tenderness Back/Spine/Pelvis: Back: no CVA tenderness Skin: General skin exam: no rashes or lesions noted Neuro: General: patient oriented x3 Extrem: General: Yes normal to inspection Course Course Course Narrative: MassPAT reviewed. Discharge Plan Discharge Clinical Impression: Metatarsal fracture Patient Disposition: Home, Self-Care Instructions: Foot Fracture in Adults (ED) Additional Instructions: please continue to wear your orthopedic boot Partial weight-bearing as tolerated Tylenol verses ibuprofen [id number] per label instructions Follow-up with orthopedic doctor as scheduled Tuesday Return if any concerns or worsening symptoms Thank you Prescriptions: New oxycodone 5 mg tablet 5 mg PO BID PRN (Reason: pain) Qty: 10 RF: 0 No Action carisoprodol 350 mg tablet 1 tab PO TID PRN (Reason: Spasms) RF: 0 citalopram 40 mg tablet 1 tab PO QAM RF: 0 lisinopril-hydrochlorothiazide 20-25 mg tablet 0.5 tab PO RF: 0 fluticasone propion-salmeterol [Wixela Inhub] 250-50 mcg/dose blister with device 1 puff PO BID RF: 0 ipratropium-albuterol 0.5 mg-3 mg(2.5 mg base)/3 mL solution for nebulization 1 vial inhalation TID RF: 0 prazosin 1 mg capsule 1 - 3 cap PO BEDTIME PRN (Reason: nightmares) RF: 0 mirtazapine 30 mg tablet 1 tab PO BEDTIME RF: 0 fluticasone propionate 50 mcg/actuation spray,suspension intranasal RF: 0 ipratropium bromide 0.03 % spray,non-aerosol 2 spray intranasal BID RF: 0 Lantus Solostar U-100 Insulin 100 unit/mL (3 mL) insulin pen 40 unit subcut BEDTIME RF: 0 omeprazole 20 mg tablet,delayed release (DR/EC) 1 tab PO BID RF: 0 Florajen 460 mg (20 billion cell) capsule 1 cap PO DAILY RF: 0 alprazolam 1 mg Tablet 1 mg PO QID RF: 0 oxycodone 5 mg tablet 5 mg PO Q8H PRN (Reason: pain) Qty: 10 RF: 0 Interventions: ED Discharge Assessment Last Done: 03/03/20 21:00 Discharge Date/Time: 03/03/20 21:00
[2020-03-03 20:31] VITALS: BP 131/75; PULSE 87; RESP 17; TEMP 36.9; O2SAT 96; BMI 38.5
== END 2020-03-03 21:00 | disposition home or self-care (01) ==
PROVIDERS: Emergency Provider Internal Medicine; PCP Family Medicine
DX: S92.309A Fracture of unspecified metatarsal bone(s), unspecified foot, initial encounter for closed fracture (principal); M79.606 Pain in leg, unspecified; X58.XXXA Exposure to other specified factors, initial encounter; Y93.9 Activity, unspecified; Y92.9 Unspecified place or not applicable; Z79.899 Other long term (current) drug therapy
CPT/HCPCS: 99283

== ENCOUNTER → 2020-03-10 12:55 | Outpatient (BNVA) | payer OTHER, SELFPAY | PROVIDERS: PCP Family Medicine; Referring Provider Family Medicine; Visit Provider Orthopaedic Surgery | DX: S92.352A Displaced fracture of fifth metatarsal bone, left foot, initial encounter for closed fracture (principal) | CPT/HCPCS: 99212 ==

== ENCOUNTER → 2020-04-17 08:44 | Outpatient (REF) | payer OTHER, SELFPAY ==
--- NOTE | 2020-04-17 08:46 | NM_ITS ---
EXAMINATION: RADIONUCLIDE SOLID FOOD GASTRIC EMPTYING 4-HOUR STUDY CLINICAL INFORMATION: Nausea, vomiting diarrhea, gastroparesis. COMPARISON: No previous gastric emptying study is available for comparison. TECHNIQUE: A standard meal consisting of 4 oz of Egg Beaters brand tagged with 787 microcuries Tc-99m Sulfur Colloid, 8 oz water and 2 slices of toast with jelly was administered orally to the patient. Images were obtained using a dual head gamma camera in the anterior and posterior projections over of the stomach immediately post ingestion and at hourly intervals up to 3 hours post ingestion. Images were not obtained at 4 hours due to the minimal retention at 3 hours. The anterior and posterior counts at each time interval were averaged using the geometric mean and expressed as percentage of the immediate post ingestion counts. FINDINGS: There is good visualization of activity in the stomach immediately post ingestion. As the study progresses, there is good clearance of activity from the stomach and visualization of progressively increasing small bowel activity. By the end of the study, there is almost no retention noted in the stomach. Retention in the stomach at each time interval was: 1 hour 30% (normal 37%-90%) 2 hours 1% (normal 30%-60%) 3 hours 0% 4 hours (Not Obtained) (normal 0%-10%) NM/NM gastric emptying study IMPRESSION: No abnormal retention of solid food is noted. Gastric emptying is more rapid than normal, a finding of uncertain clinical significance.
== END ==
LOC: HO.NUCMED 08:44
PROVIDERS: PCP Family Medicine; Visit Provider Internal Medicine Gastroenterology
DX: K31.84 Gastroparesis (principal)
CPT/HCPCS: 78264; A9541

== ENCOUNTER 2020-04-25 09:26 | Emergency (ER) | payer OTHER, SELFPAY ==
--- NOTE | 2020-04-25 | ECG_ITS ---
Test Reason : CP Blood Pressure : / mmHG Vent. Rate : 089 BPM Atrial Rate : 089 BPM P-R Int : 154 ms QRS Dur : 084 ms QT Int : 392 ms P-R-T Axes : 038 048 025 degrees QTc Int : 476 ms Normal sinus rhythm Normal ECG When compared with ECG of 23-FEB-2020 12:48, No significant change was found Referred By: Fuentes Trujillo Electronically Signed By:Gonsalo Pitts
[2020-04-25 09:33] VITALS: BP 139/85; PULSE 88; RESP 16; TEMP 37.2; O2SAT 97; BMI 39.7
[2020-04-25 09:52] LABS: Glucose, Whole Blood 314 mg/dL (60-115)
[2020-04-25 10:00] VITALS: PULSE 88
--- NOTE | 2020-04-25 10:18 | CT_ITS ---
EXAMINATION: HEAD CT AND CERVICAL SPINE CT WITHOUT CONTRAST CLINICAL INFORMATION: Fall. Head injury and mental status change. COMPARISON: Previous cervical spine CT February [address] September 2019 TECHNIQUE: Axial images through the head and cervical spine without contrast. Sagittal and coronal reconstructions on the technologist workstation were performed. Patient dose 689+6 0 2 mg/cm. This CT examination was performed using dose optimization techniques as appropriate, variously including the following: *Automated exposure control *Adjustment of mA and/or kV according to patient size (this includes techniques or standardized protocols for targeted exams where dose is matched to indication/reason for exam; i.e. extremities or head) *Use of iterative reconstruction technique FINDINGS: Head CT: There is no evidence of an extra-axial collection. There is no evidence of intra-axial or extra-axial hemorrhage. The ventricles and extra-axial CSF spaces are appropriate. Orellana-white matter differentiation is normal. No mass, mass effect or infarct is seen. Review of bone windows is normal. No skull fracture is seen in Cervical spine CT: There is head tilt to the right. Bone alignment is otherwise normal. No fracture or dislocation is seen. There is anterior fusion hardware at C3-C4 and C6-C7. There is bony ankylosis at the C3-C4, C4-C5 and C5-C6 disc spaces. There is no ankylosis at the C6-C7 disc space. There is a degenerative spondylosis and disc space narrowing at C6-C7. This appearance is similar to previous exam. Orthopedic hardware appears intact. Prevertebral soft tissues are normal. Lung apices are clear. CT/CT cervical spine wo con IMPRESSION: Head CT: Unremarkable exam. Cervical spine CT: No fracture or dislocation seen. Stable postsurgical changes.
--- NOTE | 2020-04-25 10:18 | CT_ITS ---
EXAMINATION: CT ANGIOGRAM OF THE CHEST WITH AND WITHOUT CONTRAST (CT PULMONARY ANGIOGRAM FOR PE) CLINICAL INFORMATION: Status post fall c head injury, ams, chest pain/abd pain. COMPARISON: None TECHNIQUE: Prior to contrast administration, noncontrast localization images were obtained. Subsequently, multidetector volumetric imaging was performed from the thoracic inlet to below the diaphragms following the administration of 85 mL Omnipaque 350 intravenous contrast. No contrast reaction reported. Sagittal, coronal, and MIP oblique sagittal reformatted images were obtained on the CT workstation, uploaded to PACS, and reviewed. This CT examination was performed using dose optimization techniques as appropriate, variously including the following: *Automated exposure control *Adjustment of mA and/or kV according to patient size (this includes techniques or standardized protocols for targeted exams where dose is matched to indication/reason for exam; i.e. extremities or head) *Use of iterative reconstruction technique Total exam dose-length product 445 mGy-cm FINDINGS: QUALITY OF STUDY/CONTRAST BOLUS: Satisfactory. PULMONARY ARTERIES: No central or segmental pulmonary emboli. THORACIC AORTA: No aneurysm or dissection. LUNG: No focal consolidation, nodules or masses. PLEURA: No pleural effusion or pneumothorax. MEDIASTINUM: Normal heart size. No pericardial effusion. No hilar or mediastinal lymphadenopathy. No evidence of septal bowing or right heart strain. CHEST WALL/AXILLA: No axillary or internal mammary lymphadenopathy. OSSEOUS STRUCTURES: No acute or suspicious osseous abnormality. CT/CT angio chest PE protocol IMPRESSION: Unremarkable exam. No pulmonary embolism. VTE: negative.
--- NOTE | 2020-04-25 10:18 | CT_ITS ---
EXAMINATION: CT ABDOMEN AND PELVIS WITH CONTRAST CLINICAL INFORMATION: Fall. Pain. COMPARISON: Previous CT of the abdomen and pelvis December 2019 and renal ultrasound DecemberFebruary 2020 TECHNIQUE: Multidetector volumetric images were obtained from the superior aspect of the liver through the pubic symphysis following administration 85 mL of Omnipaque 350 intravenous contrast. Sagittal and coronal reformatted images were obtained on the technologist's workstation. Oral contrast: Yes This CT examination was performed using dose optimization techniques as appropriate, variously including the following: *Automated exposure control *Adjustment of mA and/or kV according to patient size (this includes techniques or standardized protocols for targeted exams where dose is matched to indication/reason for exam; i.e. extremities or head) *Use of iterative reconstruction technique DLP: 832 mGy-cm FINDINGS: LUNG BASES: The visualized lung bases are unremarkable. LIVER, GALLBLADDER, AND BILIARY TREE: The liver is slightly low in attenuation suggestive of mild fatty infiltration. There is pneumobilia seen in the left lobe of the liver. No focal liver lesion or biliary duct dilatation is seen. The gallbladder has been removed. PANCREAS: Unremarkable. SPLEEN: Unremarkable. ADRENAL GLANDS: Unremarkable. KIDNEYS AND URETERS: There is mild right hydronephrosis and right ureteral dilatation. This may be due to very distended bladder. The kidneys are otherwise unremarkable. BLADDER: The bladder is well distended but otherwise unremarkable. GASTROINTESTINAL TRACT: The small and large bowel are unremarkable. The appendix is not identified. ABDOMINAL WALL: No significant hernia is appreciated. LYMPH NODES: Normal. VASCULAR: Unremarkable. PELVIC VISCERA: The uterus appears to have been removed. No pelvic mass is seen. OSSEOUS STRUCTURES: No fracture is seen. There is slight increased subchondral sclerosis of both femoral heads questionable for early AVN. CT/CT abdomen pelvis w con IMPRESSION: No acute findings. Mild fatty infiltration of the liver and pneumobilia. Mild right hydronephrosis and ureteral dilatation. This may be due to a very distended bladder.
[2020-04-25 10:21] LABS: Glucose, Whole Blood 294 mg/dL (60-115)
[2020-04-25] MEDS: 0.9 % Sodium Chloride 1,000 ML 999 ML IVCONT (10:49)
[2020-04-25 10:55] LABS: Basophils Percent Auto 0.1 % (0-2); Eosinophils Percent Auto 0.1 % (0-4); Hematocrit 42.2 % (37-47); Hemoglobin 14.3 g/dl (12.0-16.0); Imm Gran Abs Auto 0.11 X10*3/uL (0.00-0.03); Imm Gran Pct Auto 0.7 % (0.0-0.4); Lymphocytes Absolute Auto 2.1 X10*3/uL (1.2-4.9); Lymphocytes Percent Auto 12.4 % (20-40); MANUAL DIFF FLAG NO; Mean Corpuscular HGB Conc 33.9 g/dl (31.0-35.0); Mean Corpuscular Volume 85.6 fL (80-98); Mean Platelet Volume 9.8 fL (9.4-12.3); Monocytes Absolute Auto 0.6 X10*3/uL (0.1-1.2); Monocytes Percent Auto 3.7 % (2-11); Platelet Count 387 X10*3/uL (160-400); Red Blood Count 4.93 X10*6/uL (4.20-5.50); Red Cell Distribution Width 12.5 % (11.0-16.0); White Blood Count 16.9 X10*3/uL (4.8-10.8)
--- NOTE | 2020-04-25 10:56 | PC.NURSE ---
pt found with both arms above head, texting and making calls on cellphone.
[2020-04-25 11:08] LABS: INTERNATIONAL NORM RATIO 1.1 (0.9-1.1); Prothrombin Time 12.7 SEC (10.8-13.0)
[2020-04-25 11:11] LABS: Partial Thromboplastin Time 36.7 SEC (24.1-38.0)
[2020-04-25 11:22] LABS: Ethanol < 10 mg/dL
[2020-04-25 11:30] LABS: Influenza A PCR NEGATIVE (Negative); Influenza B PCR NEGATIVE (Negative); Resp Syncy Virus RNA Qual PCR NEGATIVE (Negative); SARS COV2 PCR INHOUSE NEGATIVE (Negative)
[2020-04-25 11:36] LABS: B Type Natriuretic Peptide 37 pg/mL (<100); Troponin-I High Sensitivity 8.4 ng/L (<3.5-17.0)
[2020-04-25 11:39] LABS: Acetone, serum QL Negative (Negative)
[2020-04-25 11:44] LABS: Alanine Aminotransferase 24 U/L (0-31); Albumin Level 4.1 g/dL (3.5-5.0); Alkaline Phosphatase 92 U/L (39-117); Anion Gap 13 (12-20); Aspartate Amino Transferase 16 U/L (5-31); Bilirubin Direct < 0.2 mg/dL (0.0-0.5); Bilirubin Total 0.2 mg/dL (0.0-1.0); Blood Urea Nitrogen 13 mg/dL (9-16); Calcium 8.5 mg/dL (8.4-10.2); Carbon Dioxide 23 mmol/L (22-29); Chloride 102 mmol/L (96-108); Creatinine Clr Calc Pharmacy 77.6; Estimated Glomerular Filt Rate > 60; Glucose Random 302 mg/dL (60-115); Magnesium 2.2 mg/dL (1.6-2.6); Potassium 4.5 mmol/l (3.3-5.1); Sodium 133 mmol/L (135-145); Total Protein 7.2 g/dL (6.5-8.0)
--- NOTE | 2020-04-25 11:55 | ED.CHESTPAIN ---
HPI - Chest Pain General Chief Complaint: Chest Pain Stated Complaint: HYPERGYLCEMIA/CP/FALL/+CCOLLAR Time Seen by Provider: 04/25/20 10:05 Source: patient and EMS Mode of arrival: EMS Limitations: other (Mainly moaning and groaning and incoherent) History of Present Illness HPI narrative: 54yoF c PMHx of DM, HTN, CKD, multiple sclerosis, seizures, sleep apnea presenting to the ED via EMS reports of fall at home with head injury. She reports that she had chest pain and some left-sided weakness to EMS. Per EMS patient is alert and oriented but speaking very slow complaining of head/jaw/left shoulder/neck/back and bilateral hip pain. Per EMS patient's point of care was 416. Patient is moaning and groaning when palpating any part of the body. She intermittently answer some questions although I am unable to understand her at this time. C-collar in place. Related Data Home Medications Medication Instructions Recorded Confirmed Lactobacillus acidophilus 1 cap PO DAILY 02/25/20 03/10/20 [Florajen] alprazolam 1 mg PO QID 02/25/20 03/10/20 carisoprodol 1 tab PO TID PRN 02/25/20 03/10/20 citalopram 1 tab PO QAM 02/25/20 03/10/20 fluticasone propion-salmeterol 1 puff PO BID 02/25/20 03/10/20 [Wixela Inhub] fluticasone propionate INTRANASAL 02/25/20 03/10/20 insulin glargine [Lantus Solostar 40 unit SUBCUT BEDTIME 02/25/20 03/10/20 U-100 Insulin] ipratropium bromide 2 spray INTRANASAL BID 02/25/20 03/10/20 ipratropium-albuterol 1 vial INHALATION TID 02/25/20 03/10/20 lisinopril-hydrochlorothiazide 0.5 tab PO 02/25/20 03/10/20 mirtazapine 1 tab PO BEDTIME 02/25/20 03/10/20 omeprazole 1 tab PO BID 02/25/20 03/10/20 prazosin 1 - 3 cap PO BEDTIME PRN 02/25/20 03/10/20 Previous Rx's Medication Instructions Recorded oxycodone 5 mg PO Q8H PRN #10 tab 02/29/20 oxycodone 5 mg PO BID PRN #10 tab 03/03/20 ondansetron HCl [Zofran] 4 mg PO Q6H PRN #10 tab 04/25/20 tramadol 50 mg PO BID PRN #10 tab 04/25/20 Allergies Allergy/AdvReac Type Severity Reaction Status Date / Time shellfish derived Allergy Intermediate ANAPHYLAXIS Verified 03/10/20 13:12 [SHELLFISH DERIVED] aspirin [ASPIRIN] Allergy Unknown ANAPHYLAXIS Verified 03/10/20 13:12 gabapentin [GABAPENTIN] Allergy Unknown ANAPHYLAXIS Verified 03/10/20 13:12 ketorolac [From TORADOL] Allergy Unknown Hives Verified 03/10/20 13:12 Penicillins [PENICILLINS] Allergy Unknown HIVES Verified 03/10/20 13:12 Review of Systems Review of Systems: Constitutional : No Fever ENT/Mouth : No Nasal Congestion, No sore throat, No Rhinorrhea, No Swallowing Difficulty Eyes: No Eye Pain, No Vision Changes Cardiovascular : No Chest Pain, No SOB Respiratory : No Cough, No Sputum Gastrointestinal : No Nausea, No Vomiting, No Diarrhea, No Constipation, No abdominal Pain Genitourinary : No Dysuria Musculoskeletal : + joint pain, No Myalgias, No Joint Swelling Skin : No Skin Lesions, No rash Neuro : + Weakness, No Numbness, No Paresthesias, No Loss of Consciousness, No Dizziness, No Headache Heme/Lymph: No Lymphadenopathy Endocrine : No Temperature Intolerance Yes Other (Limited due to speaking very slow and incoherent ) FOR[facility]LY [facility], [facility] Past Medical History Attestation statement: The following information was validated with the patient. Medical History Anxiety Cervical cancer Diabetes Diarrhea Fracture of fifth metatarsal bone Hx of abdominal pain Kidney stones Pseudoseizures Stomach cancer TIA (transient ischemic attack) Surgical History History of esophagogastroduodenoscopy (EGD) History of neck surgery Hx of arthroscopy of knee Hx of cholecystectomy Hx of colonoscopy Hx of sinus surgery Hx of ventral hernia repair Total knee replacement status Family History Family History Father No problems noted. Mother No problems noted. Social History Social History Alcohol intake: never Smoking Status: Never smoker Smoked in Last 30 Days: No Use of substances other than those prescribed or required for medical reasons: No Advance Directives: No Advance Directives Information Provided: Yes Physical Exam Vital Signs: Vital Signs: Last Vital Signs Temp 99 F 04/25/20 09:33 Pulse 84 04/25/20 14:17 Resp 16 04/25/20 14:17 BP 147/88 H 04/25/20 14:17 Pulse Ox 99 04/25/20 14:17 Body Mass Index 39.7 Vital signs have been reviewed as normal and appeared to be correct. Blood pressure normal. Heart rate normal. Respiration rate normal. Temperature normal. Oxygen saturation normal. Appearance: Alert. Although speaking very slowly mainly moaning and groaning answering simple questions yes or no and incoherent for the most part. No acute distress. Head: Normal external exam. Normocephalic. Atraumatic. Able to rotate head bilaterally. Eyes: PERRLA. EOMI. No nystagmus noted. Conjunctiva and sclera normal. Eyelids normal. Corneal reflex normal. ENT: EAC normal. TM's Normal. Hearing normal. Pharynx normal. Uvula midline. tongue midline. Moist mucous membranes. No trismus noted. No drooling noted. No muffled voice noted. Neck: C-collar in place. On palpation patient was tender to palpation to mid cervical spine and bilaterally on paraspinous musculature. No step-offs or deformities noted. Normal inspection. Neck supple. No adenopathy. Thyroid Normal. No meningeal signs. No neck mass noted. CVS: Normal heart rate and rhythm. Heart sound normal. No murmurs noted. Pulses normal throughout. Respiratory: No respiratory distress. Painless inspiration. Breath sounds normal. No wheezes/rales/rhonchi noted. Chest nontender. No accessory muscle usage noted or decreased air movement noted. Abdomen: Soft and nontender. Bowel sounds normal in all 4 quadrants. No distention noted. No organomegaly noted. No visible injury noted. Back: No CVA tenderness. Full range of motion noted. Skin: Skin warm and dry. Normal skin color. Normal skin turgor. No rashes/lesions/lacerations noted. Extremities: No lower extremity edema. Extremities exhibit normal range of motion. Extremities nontender. Able to shrug shoulders bilaterally and keep up against resistance. Neuro: Oriented X 3. No motor deficit. No sensory deficit. Reflexes normal. Moving all extremities. No focal motor deficits. Cranial nerves II-XI intact bilaterally. Facial strength normal. Normal cognition. Speech normal. Strength 5/5 throughout. No pronator drift. No tremor noted. No fasciculations noted. Muscle tone normal throughout. No asterixis noted. Vajzsu-[id number] test normal. Heel to biggs test normal. No rigidity noted. NIHSS score 0. NIH Stroke Scale Internal: Initial- Upon Arrival Time: 10:18 Level of Consciousness: Alert Level of Consciousness Questions: Answers both questions correctly Level of Consciousness Commands: Performs both tasks correctly Best Gaze: Normal Visual: No visual loss Facial Palsy: Normal Motor Arm (Right): No drift Motor Arm (Left): No drift Motor Leg (Right): No drift Motor Leg (Left): No drift Limb Ataxia: Absent Sensory: Normal Best Language: No aphasia Dysarthia: Normal Extinction and Inattention: No abnormality Score: 0 Course Course Course Narrative: 10:18am - 54yoF c PMHx of DM, HTN, CKD, multiple sclerosis, seizures, sleep apnea presenting to the ED via EMS c reports of fall at home with head injury. She reports that she had chest pain and some left-sided weakness to EMS. Per EMS patient is alert and oriented but speaking very slow complaining of head/jaw/left shoulder/neck/back and bilateral hip pain. Per EMS patient's point of care was 416. Patient is moaning and groaning when palpating any part of the body. She intermittently answer simple questions and commands such as yes and no. Although she is so soft spoken that I am unable to understand her at this time. C-collar in place. - Concern for CVA vs ACS vs SAH - Plan: Labs, CT scan of brain/cervical spine/CTA of chest for PE and Chest of abd/pelvis c IV contrast. Provide IV fluids and re-evaluate. Reevaluation(s) Reevaluation #1: - when the nurse and I passed by the patient's room the patient was holding up her phone speaking to someone on the phone on speaker phone clearly I went into the patient's room and after why was she not answer my questions clearly earlier and she responded and a full complete answer reporting that her left shoulder [place]. [place] [address]. Sodium 133. Point of care to 94 at this time. Elevated at 8.4. Although EKG is normal sinus rhythm no acute ischemic changes noted. - at this time awaiting CT scan of brain/cervical spine/CTA of chest for PE and CT scan of abdomen pelvis for any other acute processes. - will also repeat a troponin at 13:44. Otherwise will continue to monitor. Time: 12:06 Reevaluation #2: - CT scan of brain and cervical spine revealed chronic changes no acute processes noted. CT scan of abdomen and pelvis within normal limits no acute processes noted. Shoulder x-ray within normal limits no acute processes and the collarbone was able to be visualized and no fractures or dislocations noted. - patient was upset due to she has been here for while and she felt like she was not having anything done although I was in the room 2-3 times and I explained to her that I apologize I was actually dealing with a stroke protocol and giving tPA she understands this. I gave her 1 mg of Xanax. - awaiting for the repeat troponin if negative will DC home with symptomatic treatment along with instructions return if any new or worsening symptoms to follow-up with primary care provider. Patient understands agrees the plan. I offered short-term rehab for her falls although patient declined. She reports that she has a [employer] daily. Time: 15:04 Reevaluation #3: - Patient's 2nd troponin lower than compared to prior therefore patient with negative delta. Will DC home with symptomatic treatment long instructions return if any new or worsening symptoms to follow-up with primary care provider. Patient and agrees the plan. Time: 15:53 MDM - Chest Pain Medical Records Data Attestation: I reviewed the patient's medical records. Lab Data Attestation: I reviewed the patient's lab results. Result diagrams: 04/25/20 10:43 04/25/20 10:43 Labs: Lab Results 04/25/20 04/25/20 04/25/20 Range/Units 09:49 10:16 10:33 WBC (4.8-10.8) X10*3/uL RBC (4.20-5.50) X10*6/uL Hgb (12.0-16.0) g/dl Hct (37-47) % MCV (80-98) fL MCH (27.0-33.0) pg MCHC (31.0-35.0) g/dl RDW (11.0-16.0) % Plt Count (160-400) X10*3/uL MPV (9.4-12.3) fL Immature Gran % (Auto) (0.0-0.4) % Neut % (Auto) (45-73) % Lymph % (Auto) (20-40) % [place] % (Auto) (2-11) % Eos % (Auto) (0-4) % Baso % (Auto) (0-2) % Lymph # (Auto) (1.2-4.9) X10*3/uL [place] # (Auto) (0.1-1.2) X10*3/uL Eos # (Auto) (0.0-0.4) X10*3/uL Baso # (Auto) (0.0-0.2) X10*3/uL Abs Immat Gran (auto) (0.00-0.03) X10*3/uL Absolute Neuts (auto) (2.0-8.3) X10*3/uL Absolute Nucleated RBC (0.0-0.012) X10*3/uL Nucleated RBC % (auto) (0.0-0.2) /100WBC PT (10.8-13.0) SEC INR (0.9-1.1) APTT (24.1-38.0) SEC Sodium (135-145) mmol/L Potassium (3.3-5.1) mmol/l Chloride (96-108) mmol/L Carbon Dioxide (22-29) mmol/L Anion Gap (12-20) BUN (9-16) mg/dL Creatinine (0.5-1.4) mg/dL Estim Creat Clear Calc Estimated GFR POC Glucose 314 H 294 H (60-115) mg/dL Random Glucose (60-115) mg/dL Calcium (8.4-10.2) mg/dL Magnesium (1.6-2.6) mg/dL Total Bilirubin (0.0-1.0) mg/dL Direct Bilirubin (0.0-0.5) mg/dL AST (5-31) U/L ALT (0-31) U/L Alkaline Phosphatase (39-117) U/L Total Creatine Kinase (26-140) U/L Troponin I High Sens (<3.5-17.0) ng/L B-Natriuretic Peptide (<100) pg/mL Total Protein (6.5-8.0) g/dL Albumin (3.5-5.0) g/dL Urine Color Urine Appearance Urine pH (5.0-8.0) Ur Specific [place] (1.005-1.025) Urine Protein (NEG-TRACE) MG/DL Urine Glucose (UA) (NEG) MG/DL Urine Ketones (NEG) MG/DL Urine Blood (NEG) Urine Nitrite (NEG) Ur Leukocyte Esterase (NEG) Ethyl Alcohol < 10 mg/dL Acetone, Qual (Negative) Coronavirus (PCR) (Negative) Influenza Type A (PCR) (Negative) Influenza Type B (PCR) (Negative) RSV RNA Qual (PCR) (Negative) 04/25/20 04/25/20 04/25/20 Range/Units 10:34 10:43 10:43 WBC 16.9 H (4.8-10.8) X10*3/uL RBC 4.93 (4.20-5.50) X10*6/uL Hgb 14.3 (12.0-16.0) g/dl Hct 42.2 (37-47) % MCV 85.6 (80-98) fL MCH 29.0 (27.0-33.0) pg MCHC 33.9 (31.0-35.0) g/dl RDW 12.5 (11.0-16.0) % Plt Count 387 (160-400) X10*3/uL MPV 9.8 (9.4-12.3) fL Immature Gran % (Auto) 0.7 H (0.0-0.4) % Neut % (Auto) 83.0 H (45-73) % Lymph % (Auto) 12.4 L (20-40) % [place] % (Auto) 3.7 (2-11) % Eos % (Auto) 0.1 (0-4) % Baso % (Auto) 0.1 (0-2) % Lymph # (Auto) 2.1 (1.2-4.9) X10*3/uL [place] # (Auto) 0.6 (0.1-1.2) X10*3/uL Eos # (Auto) 0.0 (0.0-0.4) X10*3/uL Baso # (Auto) 0.0 (0.0-0.2) X10*3/uL Abs Immat Gran (auto) 0.11 H (0.00-0.03) X10*3/uL Absolute Neuts (auto) 14.0 H (2.0-8.3) X10*3/uL Absolute Nucleated RBC 0.000 (0.0-0.012) X10*3/uL Nucleated RBC % (auto) 0.0 (0.0-0.2) /100WBC PT 12.7 (10.8-13.0) SEC INR 1.1 (0.9-1.1) APTT 36.7 (24.1-38.0) SEC Sodium (135-145) mmol/L Potassium (3.3-5.1) mmol/l Chloride (96-108) mmol/L Carbon Dioxide (22-29) mmol/L Anion Gap (12-20) BUN (9-16) mg/dL Creatinine (0.5-1.4) mg/dL Estim Creat Clear Calc Estimated GFR POC Glucose (60-115) mg/dL Random Glucose (60-115) mg/dL Calcium (8.4-10.2) mg/dL Magnesium (1.6-2.6) mg/dL Total Bilirubin (0.0-1.0) mg/dL Direct Bilirubin (0.0-0.5) mg/dL AST (5-31) U/L ALT (0-31) U/L Alkaline Phosphatase (39-117) U/L Total Creatine Kinase (26-140) U/L Troponin I High Sens (<3.5-17.0) ng/L B-Natriuretic Peptide (<100) pg/mL Total Protein (6.5-8.0) g/dL Albumin (3.5-5.0) g/dL Urine Color Urine Appearance Urine pH (5.0-8.0) Ur Specific [place] (1.005-1.025) Urine Protein (NEG-TRACE) MG/DL Urine Glucose (UA) (NEG) MG/DL Urine Ketones (NEG) MG/DL Urine Blood (NEG) Urine Nitrite (NEG) Ur Leukocyte Esterase (NEG) Ethyl Alcohol mg/dL Acetone, Qual (Negative) Coronavirus (PCR) NEGATIVE (Negative) Influenza Type A (PCR) NEGATIVE (Negative) Influenza Type B (PCR) NEGATIVE (Negative) RSV RNA Qual (PCR) NEGATIVE (Negative) 04/25/20 04/25/20 04/25/20 Range/Units 10:43 10:43 10:44 WBC (4.8-10.8) X10*3/uL RBC (4.20-5.50) X10*6/uL Hgb (12.0-16.0) g/dl Hct (37-47) % MCV (80-98) fL MCH (27.0-33.0) pg MCHC (31.0-35.0) g/dl RDW (11.0-16.0) % Plt Count (160-400) X10*3/uL MPV (9.4-12.3) fL Immature Gran % (Auto) (0.0-0.4) % Neut % (Auto) (45-73) % Lymph % (Auto) (20-40) % [place] % (Auto) (2-11) % Eos % (Auto) (0-4) % Baso % (Auto) (0-2) % Lymph # (Auto) (1.2-4.9) X10*3/uL [place] # (Auto) (0.1-1.2) X10*3/uL Eos # (Auto) (0.0-0.4) X10*3/uL Baso # (Auto) (0.0-0.2) X10*3/uL Abs Immat Gran (auto) (0.00-0.03) X10*3/uL Absolute Neuts (auto) (2.0-8.3) X10*3/uL Absolute Nucleated RBC (0.0-0.012) X10*3/uL Nucleated RBC % (auto) (0.0-0.2) /100WBC PT (10.8-13.0) SEC INR (0.9-1.1) APTT (24.1-38.0) SEC Sodium 133 L (135-145) mmol/L Potassium 4.5 (3.3-5.1) mmol/l Chloride 102 (96-108) mmol/L Carbon Dioxide 23 (22-29) mmol/L Anion Gap 13 (12-20) BUN 13 (9-16) mg/dL Creatinine 0.83 (0.5-1.4) mg/dL Estim Creat Clear Calc 77.6 Estimated GFR > 60 POC Glucose (60-115) mg/dL Random Glucose 302 H (60-115) mg/dL Calcium 8.5 (8.4-10.2) mg/dL Magnesium 2.2 (1.6-2.6) mg/dL Total Bilirubin 0.2 (0.0-1.0) mg/dL Direct Bilirubin < 0.2 (0.0-0.5) mg/dL AST 16 (5-31) U/L ALT 24 (0-31) U/L Alkaline Phosphatase 92 (39-117) U/L Total Creatine Kinase 75 (26-140) U/L Troponin I High Sens 8.4 (<3.5-17.0) ng/L B-Natriuretic Peptide 37 (<100) pg/mL Total Protein 7.2 (6.5-8.0) g/dL Albumin 4.1 (3.5-5.0) g/dL Urine Color Urine Appearance Urine pH (5.0-8.0) Ur Specific [place] (1.005-1.025) Urine Protein (NEG-TRACE) MG/DL Urine Glucose (UA) (NEG) MG/DL Urine Ketones (NEG) MG/DL Urine Blood (NEG) Urine Nitrite (NEG) Ur Leukocyte Esterase (NEG) Ethyl Alcohol mg/dL Acetone, Qual (Negative) Coronavirus (PCR) (Negative) Influenza Type A (PCR) (Negative) Influenza Type B (PCR) (Negative) RSV RNA Qual (PCR) (Negative) 04/25/20 04/25/20 04/25/20 Range/Units 10:44 12:48 14:36 WBC (4.8-10.8) X10*3/uL RBC (4.20-5.50) X10*6/uL Hgb (12.0-16.0) g/dl Hct (37-47) % MCV (80-98) fL MCH (27.0-33.0) pg MCHC (31.0-35.0) g/dl RDW (11.0-16.0) % Plt Count (160-400) X10*3/uL MPV (9.4-12.3) fL Immature Gran % (Auto) (0.0-0.4) % Neut % (Auto) (45-73) % Lymph % (Auto) (20-40) % [place] % (Auto) (2-11) % Eos % (Auto) (0-4) % Baso % (Auto) (0-2) % Lymph # (Auto) (1.2-4.9) X10*3/uL [place] # (Auto) (0.1-1.2) X10*3/uL Eos # (Auto) (0.0-0.4) X10*3/uL Baso # (Auto) (0.0-0.2) X10*3/uL Abs Immat Gran (auto) (0.00-0.03) X10*3/uL Absolute Neuts (auto) (2.0-8.3) X10*3/uL Absolute Nucleated RBC (0.0-0.012) X10*3/uL Nucleated RBC % (auto) (0.0-0.2) /100WBC PT (10.8-13.0) SEC INR (0.9-1.1) APTT (24.1-38.0) SEC Sodium (135-145) mmol/L Potassium (3.3-5.1) mmol/l Chloride (96-108) mmol/L Carbon Dioxide (22-29) mmol/L Anion Gap (12-20) BUN (9-16) mg/dL Creatinine (0.5-1.4) mg/dL Estim Creat Clear Calc Estimated GFR POC Glucose (60-115) mg/dL Random Glucose (60-115) mg/dL Calcium (8.4-10.2) mg/dL Magnesium (1.6-2.6) mg/dL Total Bilirubin (0.0-1.0) mg/dL Direct Bilirubin (0.0-0.5) mg/dL AST (5-31) U/L ALT (0-31) U/L Alkaline Phosphatase (39-117) U/L Total Creatine Kinase (26-140) U/L Troponin I High Sens 4.9 (<3.5-17.0) ng/L B-Natriuretic Peptide (<100) pg/mL Total Protein (6.5-8.0) g/dL Albumin (3.5-5.0) g/dL Urine Color STRAW Urine Appearance CLEAR Urine pH 6.5 (5.0-8.0) Ur Specific [place] <= 1.005 (1.005-1.025) Urine Protein NEG (NEG-TRACE) MG/DL Urine Glucose (UA) 250 H (NEG) MG/DL Urine Ketones NEG (NEG) MG/DL Urine Blood NEG (NEG) Urine Nitrite NEG (NEG) Ur Leukocyte Esterase NEG (NEG) Ethyl Alcohol mg/dL Acetone, Qual Negative (Negative) Coronavirus (PCR) (Negative) Influenza Type A (PCR) (Negative) Influenza Type B (PCR) (Negative) RSV RNA Qual (PCR) (Negative) Imaging Data CT scan - abdomen: Attestation: I personally reviewed and interpreted this imaging study as follows: Radiologist's impression: IMPRESSION: No acute findings. Mild fatty infiltration of the liver and pneumobilia. Mild right hydronephrosis and ureteral dilatation. This may be due to a very distended bladder. CT scan - head: Attestation: I personally reviewed and interpreted this imaging study as follows: Radiologist's impression: IMPRESSION: Head CT: Unremarkable exam. Cervical spine CT: No fracture or dislocation seen. Stable postsurgical changes. CTA of chest for PE: Attestation: I personally reviewed and interpreted this imaging study as follows: Radiologist's impression: IMPRESSION: Unremarkable exam. No pulmonary embolism. VTE: negative. ECG Data ECG #1: Attestation: I personally reviewed and interpreted this ECG as follows: ECG interpretation date: 04/25/20 ECG interpretation time: 09:42 Interpretation: Normal sinus rhythm with a ventricular rate of 89 with normal WV interval normal QRS duration normal QT/QTC interval. No acute ischemic changes noted. Similar when compared to prior 02/23/2020 Critical Care Time Critical Care Time Critical Care Time: Yes Total Critical Care Time: 60 Attestation: I personally attest to this time spent taking care of the patient Discharge Plan Discharge Clinical Impression: Hyperglycemia, Fall, Left shoulder pain, Chest pain Patient Disposition: Home, Self-Care Instructions: Chest Pain (ED), Fall Prevention for Older Adults (ED), Shoulder Sprain (ED) Prescriptions: New tramadol 50 mg tablet 50 mg PO BID PRN (Reason: pain) Qty: 10 RF: 0 ondansetron HCl [Zofran] 4 mg tablet 4 mg PO Q6H PRN (Reason: nausea and vomiting) Qty: 10 RF: 0 No Action carisoprodol 350 mg tablet 1 tab PO TID PRN (Reason: Spasms) RF: 0 citalopram 40 mg tablet 1 tab PO QAM RF: 0 lisinopril-hydrochlorothiazide 20-25 mg tablet 0.5 tab PO RF: 0 fluticasone propion-salmeterol [Wixela Inhub] 250-50 mcg/dose blister with device 1 puff PO BID RF: 0 ipratropium-albuterol 0.5 mg-3 mg(2.5 mg base)/3 mL solution for nebulization 1 vial inhalation TID RF: 0 prazosin 1 mg capsule 1 - 3 cap PO BEDTIME PRN (Reason: nightmares) RF: 0 mirtazapine 30 mg tablet 1 tab PO BEDTIME RF: 0 fluticasone propionate 50 mcg/actuation spray,suspension intranasal RF: 0 ipratropium bromide 0.03 % spray,non-aerosol 2 spray intranasal BID RF: 0 Lantus Solostar U-100 Insulin 100 unit/mL (3 mL) insulin pen 40 unit subcut BEDTIME RF: 0 omeprazole 20 mg tablet,delayed release (DR/EC) 1 tab PO BID RF: 0 Florajen 460 mg (20 billion cell) capsule 1 cap PO DAILY RF: 0 alprazolam 1 mg Tablet 1 mg PO QID RF: 0 oxycodone 5 mg tablet 5 mg PO Q8H PRN (Reason: pain) Qty: 10 RF: 0 oxycodone 5 mg tablet 5 mg PO BID PRN (Reason: pain) Qty: 10 RF: 0 Referrals: Joshua Cardenas MD [Primary Care Provider] - 2 days Print Language: Rwandan
[2020-04-25 12:00] VITALS: PULSE 80; RESP 16; O2SAT 99
[2020-04-25] MEDS: iohexoL 350 MG/ML 100 ML INFUS..BTL 85 ML IV (12:40)
[2020-04-25 12:59] LABS: Glucose Urine UA 250 MG/DL (NEG); Leukocyte Esterase Urine NEG (NEG); Nitrite Urine NEG (NEG); PH 6.5 (5.0-8.0); Specific Gravity - Urine <= 1.005 (1.005-1.025); Urine Blood NEG (NEG); Urine Ketones NEG (NEG); Urine Protein NEG (NEG-TRACE)
[2020-04-25 13:00] LABS: Appearance Urine CLEAR; Color Urine STRAW
--- NOTE | 2020-04-25 13:41 | XR_ITS ---
EXAMINATION: XR SHOULDER, LEFT CLINICAL INFORMATION: Left shoulder/collar pain COMPARISON: None TECHNIQUE: AP external rotation, Grashey, scapular Y, and axillary views of the left shoulder. FINDINGS: The bones and soft tissues are normal. No fracture. Glenohumeral and acromioclavicular alignment is anatomic with normal joint space. No abnormal soft tissue calcifications. XR/XR shoulder LT min 2V IMPRESSION: Unremarkable left shoulder exam.
[2020-04-25 14:17] VITALS: BP 147/88; PULSE 84; RESP 16; O2SAT 99
[2020-04-25] MEDS: traMADoL HCL 50 MG TABLET PO (14:18)
[2020-04-25] MEDS: ALPRAZolam 0.5 MG TABLET 1 MG PO (14:36)
[2020-04-25 15:15] LABS: Troponin-I High Sensitivity 4.9 ng/L (<3.5-17.0)
== END 2020-04-25 16:06 | disposition home or self-care (01) ==
PROVIDERS: Physician Assistant Medical; Emergency Provider Emergency Medicine Emergency Medical Services; PCP Family Medicine
DX: E11.65 Type 2 diabetes mellitus with hyperglycemia (principal); M25.512 Pain in left shoulder; R07.9 Chest pain, unspecified; E11.22 Type 2 diabetes mellitus with diabetic chronic kidney disease; I12.9 Hypertensive chronic kidney disease with stage 1 through stage 4 chronic kidney disease, or unspecified chronic kidney disease; N18.9 Chronic kidney disease, unspecified; Z79.4 Long term (current) use of insulin; Z79.899 Other long term (current) drug therapy
CPT/HCPCS: 0241U; 36415; 70450; 71275; 72125; 73030; 74177; 80048; 80076; 80320; 81003; 82009; 82550; 82947; 83735; 83880; 84484; 85025; 85610; 85730; 93005; 96360; 99284; 99291; Q9967

== ENCOUNTER → 2020-08-05 08:25 | Outpatient (BNVA) | payer OTHER, MEDICARE, MEDICAID, SELFPAY | PROVIDERS: PCP Family Medicine; Visit Provider Internal Medicine Gastroenterology | DX: R10.13 Epigastric pain (principal); K62.5 Hemorrhage of anus and rectum; Z79.899 Other long term (current) drug therapy | CPT/HCPCS: Q3014 ==

== ENCOUNTER 2020-09-26 13:16 | Emergency (ER) | payer MEDICARE, MEDICAID, SELFPAY ==
--- NOTE | ~2020-09-26 | CT_ITS ---
EXAMINATION: CT HEAD AND CT CERVICAL SPINE WITHOUT CONTRAST. CLINICAL INFORMATION: Status post fall COMPARISON: None TECHNIQUE: 5 mm thin axial and reformatted 2 mm thin sagittal and coronal images of brain were obtained without contrast. Axial 3 mm thin and reformatted 2 mm thin sagittal and coronal images of cervical spine were obtained without contrast. FINDINGS: BRAIN: There is no acute intra-axial, extra-axial bleed, masses or midline shift. There is no acute infarct in evolution. There is no edema. The lateral ventricles are symmetrical in size and configuration without enlargement. Bone windows reveal no calvarial abnormality. There is no scalp soft tissue abnormality. Bilateral para nasal sinuses and mastoid air cells are well aerated. CERVICAL SPINE: There is mild straightening of cervical lordosis. There is anterior C3-C4 fusion with ventral plate and screws and intervening bone graft. Also visualized is ventral plate and screws for C6 and C7 fusion. As visualized is bony fusion of C-C5 and C5-C6 disc levels. Rest of visualized bones and soft tissues are normal. The prevertebral soft tissues are normal. The craniovertebral junction and the C1-C2 alignment is normal. No visible fracture or dislocation seen. The prevertebral and paravertebral soft tissues are normal. The thyroid lobes are symmetrical and normal. The airway is widely patent. The lung apices are clear. CT/CT cervical spine wo con IMPRESSION: No acute intracranial process seen. C3 - C4 and C6-C7 fusion with ventral plating and screws. There is bony fusion of C4-C5 and C5-C6 disc levels. No visible acute fracture, dislocation or subluxation seen.
--- NOTE | ~2020-09-26 | CT_ITS ---
EXAMINATION: CT HEAD AND CT CERVICAL SPINE WITHOUT CONTRAST. CLINICAL INFORMATION: Status post fall COMPARISON: None TECHNIQUE: 5 mm thin axial and reformatted 2 mm thin sagittal and coronal images of brain were obtained without contrast. Axial 3 mm thin and reformatted 2 mm thin sagittal and coronal images of cervical spine were obtained without contrast. FINDINGS: BRAIN: There is no acute intra-axial, extra-axial bleed, masses or midline shift. There is no acute infarct in evolution. There is no edema. The lateral ventricles are symmetrical in size and configuration without enlargement. Bone windows reveal no calvarial abnormality. There is no scalp soft tissue abnormality. Bilateral para nasal sinuses and mastoid air cells are well aerated. CERVICAL SPINE: There is mild straightening of cervical lordosis. There is anterior C3-C4 fusion with ventral plate and screws and intervening bone graft. Also visualized is ventral plate and screws for C6 and C7 fusion. As visualized is bony fusion of C-C5 and C5-C6 disc levels. Rest of visualized bones and soft tissues are normal. The prevertebral soft tissues are normal. The craniovertebral junction and the C1-C2 alignment is normal. No visible fracture or dislocation seen. The prevertebral and paravertebral soft tissues are normal. The thyroid lobes are symmetrical and normal. The airway is widely patent. The lung apices are clear. CT/CT head/brain wo con IMPRESSION: No acute intracranial process seen. C3 - C4 and C6-C7 fusion with ventral plating and screws. There is bony fusion of C4-C5 and C5-C6 disc levels. No visible acute fracture, dislocation or subluxation seen.
[2020-09-26 13:37] VITALS: BP 106/73; BP 98/68; PULSE 87; PULSE 94; RESP 24; TEMP 36.6; O2SAT 95; BMI 35.2
[2020-09-26 13:57] LABS: MANUAL DIFF FLAG NO
[2020-09-26] MEDS: ondansetron HCL 4 MG/2 ML VIAL IVPUSH (13:57)
[2020-09-26 13:59] LABS: Basophils Absolute Auto 0.1 X10*3/uL (0.0-0.2); Basophils Percent Auto 0.6 % (0-2); Eosinophils Absolute Auto 0.2 X10*3/uL (0.0-0.4); Eosinophils Percent Auto 2.3 % (0-4); Hematocrit 40.5 % (37-47); Hemoglobin 13.4 g/dl (12.0-16.0); Imm Gran Abs Auto 0.04 X10*3/uL (0.00-0.03); Imm Gran Pct Auto 0.4 % (0.0-0.4); Lymphocytes Absolute Auto 3.4 X10*3/uL (1.2-4.9); Lymphocytes Percent Auto 33.6 % (20-40); Mean Corpuscular HGB Conc 33.1 g/dl (31.0-35.0); Mean Corpuscular Volume 87.7 fL (80-98); Mean Platelet Volume 9.3 fL (9.4-12.3); Monocytes Absolute Auto 0.6 X10*3/uL (0.1-1.2); Monocytes Percent Auto 5.4 % (2-11); Neutrophils Absolute Auto 5.9 X10*3/uL (2.0-8.3); Neutrophils Percent Auto 57.7 % (45-73); Platelet Count 329 X10*3/uL (160-400); Red Blood Count 4.62 X10*6/uL (4.20-5.50); Red Cell Distribution Width 13.2 % (11.0-16.0); White Blood Count 10.2 X10*3/uL (4.8-10.8)
[2020-09-26 14:00] VITALS: RESP 16
[2020-09-26] MEDS: Morphine Sulfate 4 MG/ML CARTRIDGE IVPUSH (14:00)
[2020-09-26 14:40] VITALS: BP 114/75; PULSE 87; RESP 12; TEMP 36.7; O2SAT 95
[2020-09-26 14:41] LABS: Alanine Aminotransferase 21 U/L (0-31); Albumin Level 3.9 g/dL (3.5-5.0); Alkaline Phosphatase 91 U/L (39-117); Anion Gap 10 (12-20); Aspartate Amino Transferase 14 U/L (5-31); Bilirubin Total 0.3 mg/dL (0.0-1.0); Blood Urea Nitrogen 15 mg/dL (9-16); Carbon Dioxide 34 mmol/L (22-29); Chloride 100 mmol/L (96-108); Creatinine Clr Calc Pharmacy 70.7; Estimated Glomerular Filt Rate > 60; Glucose Random 79 mg/dL (60-115); Potassium 4.2 mmol/L (3.3-5.1); Sodium 140 mmol/L (135-145); Total Protein 6.7 g/dL (6.5-8.0)
--- NOTE | 2020-09-26 14:52 | ED.SEIZURE ---
HPI - Seizure General Chief Complaint: Seizure Stated Complaint: seizure this morning- 4 hours post ictal Time Seen by Provider: 09/26/20 13:29 Source: patient and EMS Mode of arrival: EMS Limitations: no limitations History of Present Illness HPI Narrative: Patient has history of anxiety pseudoseizures TIAs diabetes and conversion speech disorder came after she had a seizure when she was using the bathroom Ahmet reclining and fell without significant injuries complaining of pain everywhere patient is not on any seizure medication daughter called ambulance as patient stayed postictal for 5 hours on arrival patient is awake talking slowly as usual in the past no seizure activity noticed Seizure History: Yes Place: Home Related Data Home Medications Medication Instructions Recorded Confirmed Lactobacillus acidophilus 1 cap PO DAILY 02/25/20 08/05/20 [Florajen] alprazolam 1 mg PO QID 02/25/20 08/05/20 carisoprodol 1 tab PO TID PRN 02/25/20 08/05/20 citalopram 1 tab PO QAM 02/25/20 08/05/20 fluticasone propion-salmeterol 1 puff PO BID 02/25/20 08/05/20 [Wixela Inhub] fluticasone propionate INTRANASAL 02/25/20 08/05/20 insulin glargine [Lantus Solostar 40 unit SUBCUT BEDTIME 02/25/20 08/05/20 U-100 Insulin] ipratropium bromide 2 spray INTRANASAL BID 02/25/20 08/05/20 ipratropium-albuterol 1 vial INHALATION TID 02/25/20 08/05/20 lisinopril-hydrochlorothiazide 0.5 tab PO 02/25/20 08/05/20 mirtazapine 1 tab PO BEDTIME 02/25/20 08/05/20 prazosin 1 - 3 cap PO BEDTIME PRN 02/25/20 08/05/20 dulaglutide 0.75 mg/0.5 mL 0.75 mg SUBCUT QWEEK 08/05/20 08/05/20 subcutaneous pen injector estradiol 1 g VAGINAL 3XW 08/05/20 08/05/20 insulin aspart U-100 100 unit/mL unit SUBCUT 08/05/20 08/05/20 (3 mL) subcutaneous pen pen needle, diabetic 29 gauge x #100 ea 08/05/20 08/05/20 1/2 Previous Rx's Medication Instructions Recorded oxycodone 5 mg PO Q8H PRN #10 tab 02/29/20 oxycodone 5 mg PO BID PRN #10 tab 03/03/20 ondansetron HCl [Zofran] 4 mg PO Q6H PRN #10 tab 04/25/20 tramadol 50 mg PO BID PRN #10 tab 04/25/20 hydrocortisone 2.5 % topical cream 1 appl LA BID-QID PRN #30 g 08/05/20 with perineal applicator pantoprazole 40 mg tablet,delayed 40 mg PO DAILY #90 tab 08/05/20 release Allergies Allergy/AdvReac Type Severity Reaction Status Date / Time shellfish derived Allergy Intermediate ANAPHYLAXIS Verified 08/05/20 08:26 [SHELLFISH DERIVED] aspirin [ASPIRIN] Allergy Unknown ANAPHYLAXIS Verified 08/05/20 08:26 gabapentin [GABAPENTIN] Allergy Unknown ANAPHYLAXIS Verified 08/05/20 08:26 ketorolac [From TORADOL] Allergy Unknown Hives Verified 08/05/20 08:26 Penicillins [PENICILLINS] Allergy Unknown HIVES Verified 08/05/20 08:26 Review of Systems Review of Systems: Constitutional : No Weight loss, No Fever, No Chills ENT/Mouth : No sore throat, No Rhinorrhea Eyes: No Eye Pain, No Swelling Cardiovascular : No Chest Pain, no palpitations Respiratory : No Cough, No Sputum, no shortness of breath Gastrointestinal : no Nausea, No Vomiting, No Diarrhea, No abdominal Pain, no black stools Genitourinary : No Dysuria, No Urinary Frequency Musculoskeletal : No joint pain, + Myalgias, No Joint Swelling Skin : No Skin Lesions, No rash Neuro : No Weakness, No Numbness, No Dizziness, No Headache Psych : ++ Anxiety/Panic, No Depression Heme/Lymph: No Bruising, No Lymphadenopathy Endocrine : No Polyuria, No Polydipsia All other systems reviewed and are negative [facility] Past Medical History Medical History Anxiety Cervical cancer Diabetes Diarrhea Fracture of fifth metatarsal bone Hx of abdominal pain Kidney stones Pseudoseizures Stomach cancer TIA (transient ischemic attack) Surgical History History of esophagogastroduodenoscopy (EGD) History of neck surgery Hx of arthroscopy of knee Hx of cholecystectomy Hx of colonoscopy Hx of sinus surgery Hx of ventral hernia repair Total knee replacement status Family History Family History Mother Cancer Brother Cancer Stomach problems Acid reflux Social History Social History Household Members: Spouse Alcohol intake: never Smoking Status: Never smoker Use of substances other than those prescribed or required for medical reasons: No Advance Directives: No Advance Directives Information Provided: No Physical Exam Vital Signs: Vital Signs: Last Vital Signs Temp 98.0 F 09/26/20 14:40 Pulse 87 09/26/20 14:40 Resp 12 09/26/20 14:40 BP 114/75 09/26/20 14:40 Pulse Ox 95 09/26/20 14:40 Body Mass Index 35.2 Const: General: comfortable, no acute distress, well developed, alert and awake Orientation/consciousness: patient oriented x3 HENMT: Head: Yes normocephalic Ears: hearing grossly normal bilaterally General nose exam: Normal external nose present Face and sinus: Yes normal facial exam Mouth: Normal oral and palatal mucosa present Teeth and gingiva: dentition normal Throat: Yes posterior oropharynx normal Eyes: General: appearance normal, both eyes and all related structures Neck: Neck: No midline deformity and Yes tender (Diffuse tenderness lower neck and back) Chest: Chest palpation & inspection: normal palpation of entire chest wall Resp: Effort & Inspection: normal respiratory effort Auscultation: clear to auscultation bilaterally, no crackles, no rales and no rhonchi Cardio: Palpation: normal PMI Rate: regular rate Rhythm: regular rhythm Heart sounds: S1 normal heart sound present and S2 normal heart sound present GI: Inspection: Yes normal to inspection Palpation (GI): Soft to palpation Auscultation: normal bowel sounds : General: Yes no CVA tenderness Back/Spine/Pelvis: Back: no CVA tenderness Cervical Spine: normal cervical lordosis and cervical ROM normal Thoracic/Lumbar Spine: thoraco-lumbar spasm, No thoracic spinal tenderness and No lumbar spinal tenderness Skin: General skin exam: no rashes or lesions noted Neuro: General: patient oriented x3, tone normal, moves all extremities, no focal motor deficits and CN's II-XI intact bilaterally Extrem: General: Yes normal to inspection, Yes full ROM, Yes no calf tenderness and Yes normal gait MDM - Seizure MDM Narrative Medical decision making narrative: Patient with pseudoseizures with conversion speech disorder came for an episode of seizure similar to that in the past workup is negative CT scan C-spine and brain is negative patient alert oriented x3 asking for pain medicine Medical Records Attestation: I reviewed the patient's medical records. Lab Data Attestation: I reviewed the patient's lab results. Result diagrams: 09/26/20 13:51 09/26/20 13:51 Labs: Lab Results 09/26/20 09/26/20 Range/Units 13:51 13:51 WBC 10.2 (4.8-10.8) X10*3/uL RBC 4.62 (4.20-5.50) X10*6/uL Hgb 13.4 (12.0-16.0) g/dl Hct 40.5 (37-47) % MCV 87.7 (80-98) fL MCH 29.0 (27.0-33.0) pg MCHC 33.1 (31.0-35.0) g/dl RDW 13.2 (11.0-16.0) % Plt Count 329 (160-400) X10*3/uL MPV 9.3 L (9.4-12.3) fL Immature Gran % (Auto) 0.4 (0.0-0.4) % Neut % (Auto) 57.7 (45-73) % Lymph % (Auto) 33.6 (20-40) % [place] % (Auto) 5.4 (2-11) % Eos % (Auto) 2.3 (0-4) % Baso % (Auto) 0.6 (0-2) % Lymph # (Auto) 3.4 (1.2-4.9) X10*3/uL [place] # (Auto) 0.6 (0.1-1.2) X10*3/uL Eos # (Auto) 0.2 (0.0-0.4) X10*3/uL Baso # (Auto) 0.1 (0.0-0.2) X10*3/uL Abs Immat Gran (auto) 0.04 H (0.00-0.03) X10*3/uL Absolute Neuts (auto) 5.9 (2.0-8.3) X10*3/uL Absolute Nucleated RBC 0.000 (0.0-0.012) X10*3/uL Nucleated RBC % (auto) 0.0 (0.0-0.2) /100WBC Sodium 140 (135-145) mmol/L Potassium 4.2 (3.3-5.1) mmol/L Chloride 100 (96-108) mmol/L Carbon Dioxide 34 H (22-29) mmol/L Anion Gap 10 L (12-20) BUN 15 (9-16) mg/dL Creatinine 0.85 (0.5-1.4) mg/dL Estim Creat Clear Calc 70.7 Estimated GFR > 60 Random Glucose 79 D (60-115) mg/dL Calcium 9.0 (8.4-10.2) mg/dL Total Bilirubin 0.3 (0.0-1.0) mg/dL AST 14 (5-31) U/L ALT 21 (0-31) U/L Alkaline Phosphatase 91 (39-117) U/L Total Protein 6.7 (6.5-8.0) g/dL Albumin 3.9 (3.5-5.0) g/dL Discharge Plan Discharge Prescriptions: No Action carisoprodol 350 mg tablet 1 tab PO TID PRN (Reason: Spasms) RF: 0 citalopram 40 mg tablet 1 tab PO QAM RF: 0 lisinopril-hydrochlorothiazide 20-25 mg tablet 0.5 tab PO RF: 0 fluticasone propion-salmeterol [Wixela Inhub] 250-50 mcg/dose blister with device 1 puff PO BID RF: 0 ipratropium-albuterol 0.5 mg-3 mg(2.5 mg base)/3 mL solution for nebulization 1 vial inhalation TID RF: 0 prazosin 1 mg capsule 1 - 3 cap PO BEDTIME PRN (Reason: nightmares) RF: 0 mirtazapine 30 mg tablet 1 tab PO BEDTIME RF: 0 fluticasone propionate 50 mcg/actuation spray,suspension intranasal RF: 0 ipratropium bromide 0.03 % spray,non-aerosol 2 spray intranasal BID RF: 0 Lantus Solostar U-100 Insulin 100 unit/mL (3 mL) insulin pen 40 unit subcut BEDTIME RF: 0 Florajen Acidophilus 460 mg (20 billion cell) capsule 1 cap PO DAILY RF: 0 alprazolam 1 mg Tablet 1 mg PO QID RF: 0 oxycodone 5 mg tablet 5 mg PO Q8H PRN (Reason: pain) Qty: 10 RF: 0 oxycodone 5 mg tablet 5 mg PO BID PRN (Reason: pain) Qty: 10 RF: 0 tramadol 50 mg tablet 50 mg PO BID PRN (Reason: pain) Qty: 10 RF: 0 ondansetron HCl [Zofran] 4 mg tablet 4 mg PO Q6H PRN (Reason: nausea and vomiting) Qty: 10 RF: 0 Trulicity 0.75 mg/0.5 mL pen injector 0.75 mg subcut QWEEK RF: 0 (DME) pen needle, diabetic 29 gauge x 1/2 needle See Rx Instructions ea .ROUTE .MEDSUPPLY Qty: 100 RF: 0 estradiol 0.01 % (0.1 mg/gram) cream 1 g vaginal 3XW RF: 0 insulin aspart U-100 100 unit/mL (3 mL) insulin pen subcut RF: 0 pantoprazole 40 mg tablet,delayed release (DR/EC) 40 mg PO DAILY Qty: 90 RF: 2 hydrocortisone [Procto-Med HC] 2.5 % cream with perineal applicator 1 appl LA BID-QID PRN (Reason: hemorrhoids) Qty: 30 RF: 0
[2020-09-26] MEDS: oxyCODONE HCl Immed Release 5 MG TABLET PO (15:45)
== END 2020-09-26 16:17 | disposition home or self-care (01) ==
PROVIDERS: Emergency Provider Internal Medicine; PCP Internal Medicine
DX: R56.9 Unspecified convulsions (principal); M54.2 Cervicalgia; R51.9 Headache, unspecified; F41.9 Anxiety disorder, unspecified; Z79.899 Other long term (current) drug therapy
CPT/HCPCS: 36415; 70450; 72125; 80053; 85025; 96374; 96375; 99284; J2270; J2405

== ENCOUNTER → 2020-11-11 09:37 | Outpatient (BNVA) | payer OTHER, SELFPAY | PROVIDERS: PCP Internal Medicine; Referring Provider Internal Medicine; Visit Provider Internal Medicine Gastroenterology | DX: R10.13 Epigastric pain (principal) | CPT/HCPCS: 99212 ==

== ENCOUNTER 2020-11-12 12:06 | Emergency (ER) | payer OTHER, SELFPAY ==
[2020-11-12 12:17] VITALS: BP 119/62; BP 121/66; PULSE 86; PULSE 88; RESP 16; TEMP 36.8; O2SAT 97; BMI 36.1
--- NOTE | 2020-11-12 12:21 | ED.HA ---
HPI - Headache General Chief Complaint: Headache Stated Complaint: MIGRAINE Time Seen by Provider: 11/12/20 12:21 Source: patient Mode of arrival: ambulatory Limitations: no limitations History of Present Illness HPI Narrative: patient states she has a severe migraine related to low sugars. MD elicited complaint: headache Pertinent past history: migraines Onset (ago): week(s) (2) Onset description: gradually Location: generalized Severity: moderate Quality & Timing: aching Associated symptoms: nausea and other (Patient with nausea and headache) Related Data Home Medications Medication Instructions Recorded Confirmed Lactobacillus acidophilus 1 cap PO DAILY 02/25/20 08/05/20 [Florajen] alprazolam 1 mg PO QID 02/25/20 08/05/20 carisoprodol 1 tab PO TID PRN 02/25/20 08/05/20 citalopram 1 tab PO QAM 02/25/20 08/05/20 fluticasone propion-salmeterol 1 puff PO BID 02/25/20 08/05/20 [Wixela Inhub] fluticasone propionate INTRANASAL 02/25/20 08/05/20 insulin glargine [Lantus Solostar 40 unit SUBCUT BEDTIME 02/25/20 08/05/20 U-100 Insulin] ipratropium bromide 2 spray INTRANASAL BID 02/25/20 08/05/20 ipratropium-albuterol 1 vial INHALATION TID 02/25/20 08/05/20 lisinopril-hydrochlorothiazide 0.5 tab PO 02/25/20 08/05/20 mirtazapine 1 tab PO BEDTIME 02/25/20 08/05/20 prazosin 1 - 3 cap PO BEDTIME PRN 02/25/20 08/05/20 dulaglutide 0.75 mg/0.5 mL 0.75 mg SUBCUT QWEEK 08/05/20 08/05/20 subcutaneous pen injector estradiol 1 g VAGINAL 3XW 08/05/20 08/05/20 insulin aspart U-100 100 unit/mL unit SUBCUT 08/05/20 08/05/20 (3 mL) subcutaneous pen pen needle, diabetic 29 gauge x #100 ea 08/05/20 08/05/20 1/2 Previous Rx's Medication Instructions Recorded oxycodone 5 mg PO Q8H PRN #10 tab 02/29/20 oxycodone 5 mg PO BID PRN #10 tab 03/03/20 ondansetron HCl [Zofran] 4 mg PO Q6H PRN #10 tab 04/25/20 tramadol 50 mg PO BID PRN #10 tab 04/25/20 hydrocortisone 2.5 % topical cream 1 appl [place] BID-QID PRN #30 g 08/05/20 with perineal applicator lansoprazole 30 mg capsule,delayed 30 mg PO BID 30 Days #60 cap 11/11/20 release ondansetron 4 mg disintegrating 4 mg PO Q8H #60 tab 11/11/20 tablet simethicone 125 mg chewable tablet 125 mg PO TID PRN #90 tab 11/11/20 Allergies Allergy/AdvReac Type Severity Reaction Status Date / Time shellfish derived Allergy Intermediate ANAPHYLAXIS Verified 11/11/20 10:05 [SHELLFISH DERIVED] aspirin [ASPIRIN] Allergy Unknown ANAPHYLAXIS Verified 11/11/20 10:05 gabapentin [GABAPENTIN] Allergy Unknown ANAPHYLAXIS Verified 11/11/20 10:05 ketorolac [From TORADOL] Allergy Unknown Hives Verified 11/11/20 10:05 Penicillins [PENICILLINS] Allergy Unknown HIVES Verified 11/11/20 10:05 Review of Systems Constitutional: Constitutional: Reports no additional constitutional complaints Eyes: Eyes: Reports no additional eye complaints ENT: Denies dizziness Cardiovascular: Cardiovascular: Reports no additional cardiovascular complaints Respiratory: Respiratory: Reports as per HPI Gastrointestinal: Gastrointestinal: Reports no additional gastrointestinal complaints Genitourinary: Genitourinary: Reports no additional female genitourinary complaints Musculoskeletal: Musculoskeletal: Reports no additional musculoskeletal complaints Integumentary/Breasts: Skin/Breast: Denies rash Neurologic: Reports system reviewed and no additional complaints, except as documented, Denies dizziness and Denies Sensory deficit (Neuro) Psychiatric: Psychiatric: Denies anxiety PMFSH Past Medical History Medical History Anxiety Cervical cancer Diabetes Diarrhea Fracture of fifth metatarsal bone Hx of abdominal pain Kidney stones Pseudoseizures Stomach cancer TIA (transient ischemic attack) Surgical History History of esophagogastroduodenoscopy (EGD) History of neck surgery Hx of arthroscopy of knee Hx of cholecystectomy Hx of colonoscopy Hx of sinus surgery Hx of ventral hernia repair Total knee replacement status Family History Family History Mother Cancer Brother Cancer Stomach problems Acid reflux Social History Social History Household Members: Spouse Alcohol intake: never Advance Directives: Yes Advance Directives Information Provided: No Advance Directives on File: No Patient : No Physical Exam Vital Signs: Vital Signs: Last Vital Signs Temp 98.2 F 11/12/20 12:17 Pulse 86 11/12/20 12:17 Resp 16 11/12/20 12:17 BP 121/66 11/12/20 12:17 Pulse Ox 97 11/12/20 12:17 Body Mass Index 36.1 Const: Other: flat affect Nutritional Appearance: obese Orientation/consciousness: oriented to person and patient oriented x3 Limitations: no limitations HENMT: Head: Yes normal to inspection Ears: external ears normal General nose exam: Normal external nose present Mouth: Normal oral and palatal mucosa present and oropharynx normal Throat: Yes posterior oropharynx normal Eyes: General: appearance normal, both eyes and all related structures Neck: Other: supple Neck: Yes normal visual inspection Chest: Chest palpation & inspection: normal inspection of the chest Resp: Auscultation: clear to auscultation bilaterally Cardio: Jugular venous distension: no JVD Rate: regular rate Rhythm: regular rhythm Heart sounds: S1 normal heart sound present and S2 normal heart sound present GI: Inspection: Yes normal to inspection Palpation (GI): Soft to palpation, nontender and No hepatosplenomegaly present Auscultation: normal bowel sounds : General: Yes no CVA tenderness Back/Spine/Pelvis: Back: no CVA tenderness Skin: General skin exam: no rashes or lesions noted Neuro: General: oriented to person and patient oriented x3 Cranial nerves: Yes CN's II-XII intact bilaterally Motor exam (neuro): 5/5 motor strength present throughout Sensory Exam: No Sensory deficit (Neuro) Extrem: General: Yes normal to inspection Psych: Appearance: grossly normal Course Reevaluation(s) Reevaluation #1: patients sugar was low, feeding patient Time: 14:32 Reevaluation #2: sugar is up headache improved will dc home Time: 15:09 [facility] - Headache Lab Data Result diagrams: 11/12/20 13:27 11/12/20 13:27 Labs: Lab Results 11/12/20 11/12/20 11/12/20 Range/Units 13:27 13:27 15:00 WBC 13.6 H (4.8-10.8) X10*3/uL RBC 4.44 (4.20-5.50) X10*6/uL Hgb 12.8 (12.0-16.0) g/dl Hct 39.3 (37-47) % MCV 88.5 (80-98) fL MCH 28.8 (27.0-33.0) pg MCHC 32.6 (31.0-35.0) g/dl RDW 13.6 (11.0-16.0) % Plt Count 360 (160-400) X10*3/uL MPV 8.9 L (9.4-12.3) fL Immature Gran % (Auto) 0.4 (0.0-0.4) % Neut % (Auto) 63.7 (45-73) % Lymph % (Auto) 28.2 (20-40) % [place] % (Auto) 6.1 (2-11) % Eos % (Auto) 1.2 (0-4) % Baso % (Auto) 0.4 (0-2) % Lymph # (Auto) 3.8 (1.2-4.9) X10*3/uL [place] # (Auto) 0.8 (0.1-1.2) X10*3/uL Eos # (Auto) 0.2 (0.0-0.4) X10*3/uL Baso # (Auto) 0.1 (0.0-0.2) X10*3/uL Abs Immat Gran (auto) 0.05 H (0.00-0.03) X10*3/uL Absolute Neuts (auto) 8.7 H (2.0-8.3) X10*3/uL Absolute Nucleated RBC 0.000 (0.0-0.012) X10*3/uL Nucleated RBC % (auto) 0.0 (0.0-0.2) /100WBC Sodium 141 (135-145) mmol/L Potassium 4.1 (3.3-5.1) mmol/L Chloride 104 (96-108) mmol/L Carbon Dioxide 30 H (22-29) mmol/L Anion Gap 11 L (12-20) BUN 13 (9-16) mg/dL Creatinine 0.78 (0.5-1.4) mg/dL Estim Creat Clear Calc 77.4 Estimated GFR > 60 POC Glucose 112 (60-115) mg/dL Random Glucose 55 L* (60-115) mg/dL Calcium 8.8 (8.4-10.2) mg/dL Total Bilirubin 0.3 (0.0-1.0) mg/dL Direct Bilirubin < 0.2 (0.0-0.5) mg/dL AST 15 (5-31) U/L ALT 22 (0-31) U/L Alkaline Phosphatase 74 (39-117) U/L Total Protein 6.5 (6.5-8.0) g/dL Albumin 3.9 (3.5-5.0) g/dL Discharge Plan Discharge Clinical Impression: Hypoglycemia Headache Qualifiers: Headache type: other headache syndrome Qualified Code(s): G44.89 - Other headache syndrome Patient Disposition: Home, Self-Care Instructions: Hypoglycemia in a Person with Diabetes (ED) Prescriptions: No Action carisoprodol 350 mg tablet 1 tab PO TID PRN (Reason: Spasms) RF: 0 citalopram 40 mg tablet 1 tab PO QAM RF: 0 lisinopril-hydrochlorothiazide 20-25 mg tablet 0.5 tab PO RF: 0 fluticasone propion-salmeterol [Wixela Inhub] 250-50 mcg/dose blister with device 1 puff PO BID RF: 0 ipratropium-albuterol 0.5 mg-3 mg(2.5 mg base)/3 mL solution for nebulization 1 vial inhalation TID RF: 0 prazosin 1 mg capsule 1 - 3 cap PO BEDTIME PRN (Reason: nightmares) RF: 0 mirtazapine 30 mg tablet 1 tab PO BEDTIME RF: 0 fluticasone propionate 50 mcg/actuation spray,suspension intranasal RF: 0 ipratropium bromide 0.03 % spray,non-aerosol 2 spray intranasal BID RF: 0 Lantus Solostar U-100 Insulin 100 unit/mL (3 mL) insulin pen 40 unit subcut BEDTIME RF: 0 Florajen Acidophilus 460 mg (20 billion cell) capsule 1 cap PO DAILY RF: 0 alprazolam 1 mg Tablet 1 mg PO QID RF: 0 oxycodone 5 mg tablet 5 mg PO Q8H PRN (Reason: pain) Qty: 10 RF: 0 oxycodone 5 mg tablet 5 mg PO BID PRN (Reason: pain) Qty: 10 RF: 0 tramadol 50 mg tablet 50 mg PO BID PRN (Reason: pain) Qty: 10 RF: 0 ondansetron HCl [Zofran] 4 mg tablet 4 mg PO Q6H PRN (Reason: nausea and vomiting) Qty: 10 RF: 0 Trulicity 0.75 mg/0.5 mL pen injector 0.75 mg subcut QWEEK RF: 0 (DME) pen needle, diabetic 29 gauge x 1/2 needle See Rx Instructions ea .ROUTE .MEDSUPPLY Qty: 100 RF: 0 estradiol 0.01 % (0.1 mg/gram) cream 1 g vaginal 3XW RF: 0 insulin aspart U-100 100 unit/mL (3 mL) insulin pen subcut RF: 0 hydrocortisone [Procto-Med HC] 2.5 % cream with perineal applicator 1 appl [place] BID-QID PRN (Reason: hemorrhoids) Qty: 30 RF: 0 lansoprazole 30 mg capsule,delayed release(DR/EC) 30 mg PO BID 30 Days Qty: 60 RF: 2 simethicone 125 mg tablet,chewable 125 mg PO TID PRN (Reason: abdominal distention) Qty: 90 RF: 2 ondansetron 4 mg tablet,disintegrating 4 mg PO Q8H Qty: 60 RF: 1 Referrals: Joshua Cardenas MD [Primary Care Provider] - 5 days
[2020-11-12] MEDS: Morphine Sulfate 4 MG/ML CARTRIDGE IVPUSH (13:22)
[2020-11-12] MEDS: 0.9 % Sodium Chloride 1,000 ML 125 ML IVCONT (13:22)
[2020-11-12 13:31] LABS: MANUAL DIFF FLAG NO
[2020-11-12 13:32] LABS: Basophils Absolute Auto 0.1 X10*3/uL (0.0-0.2); Basophils Percent Auto 0.4 % (0-2); Eosinophils Absolute Auto 0.2 X10*3/uL (0.0-0.4); Eosinophils Percent Auto 1.2 % (0-4); Hematocrit 39.3 % (37-47); Hemoglobin 12.8 g/dl (12.0-16.0); Imm Gran Abs Auto 0.05 X10*3/uL (0.00-0.03); Imm Gran Pct Auto 0.4 % (0.0-0.4); Lymphocytes Absolute Auto 3.8 X10*3/uL (1.2-4.9); Lymphocytes Percent Auto 28.2 % (20-40); Mean Corpuscular HGB Conc 32.6 g/dl (31.0-35.0); Mean Corpuscular Hemoglobin 28.8 pg (27.0-33.0); Mean Corpuscular Volume 88.5 fL (80-98); Mean Platelet Volume 8.9 fL (9.4-12.3); Monocytes Absolute Auto 0.8 X10*3/uL (0.1-1.2); Monocytes Percent Auto 6.1 % (2-11); Neutrophils Absolute Auto 8.7 X10*3/uL (2.0-8.3); Neutrophils Percent Auto 63.7 % (45-73); Platelet Count 360 X10*3/uL (160-400); Red Blood Count 4.44 X10*6/uL (4.20-5.50); Red Cell Distribution Width 13.6 % (11.0-16.0); White Blood Count 13.6 X10*3/uL (4.8-10.8)
[2020-11-12 14:04] LABS: Alanine Aminotransferase 22 U/L (0-31); Albumin Level 3.9 g/dL (3.5-5.0); Alkaline Phosphatase 74 U/L (39-117); Anion Gap 11 (12-20); Aspartate Amino Transferase 15 U/L (5-31); Bilirubin Direct < 0.2 mg/dL (0.0-0.5); Bilirubin Total 0.3 mg/dL (0.0-1.0); Blood Urea Nitrogen 13 mg/dL (9-16); Calcium 8.8 mg/dL (8.4-10.2); Carbon Dioxide 30 mmol/L (22-29); Chloride 104 mmol/L (96-108); Creatinine Clr Calc Pharmacy 77.4; Estimated Glomerular Filt Rate > 60; Glucose Random 55 mg/dL (60-115); Potassium 4.1 mmol/L (3.3-5.1); Sodium 141 mmol/L (135-145); Total Protein 6.5 g/dL (6.5-8.0)
--- NOTE | 2020-11-12 14:09 | PC.NURSE ---
PT HAS BS OF 55 PROVIDER AWARE PT GIVEN JUICE AND SOMETHING TO EAT WILL RECHECK
[2020-11-12 15:04] LABS: Glucose, Whole Blood 112 mg/dL (60-115)
[2020-11-12 15:15] VITALS: BP 101/72; PULSE 92; RESP 18; TEMP 36.4; O2SAT 95
== END 2020-11-12 15:25 | disposition home or self-care (01) ==
PROVIDERS: Emergency Provider Emergency Medicine; PCP Family Medicine
DX: G44.89 Other headache syndrome (principal); E11.649 Type 2 diabetes mellitus with hypoglycemia without coma; Z79.4 Long term (current) use of insulin
CPT/HCPCS: 36415; 80048; 80076; 82947; 85025; 96361; 96374; 96375; 99283; 99284; J2270; J2550

== ENCOUNTER 2020-11-17 09:08 | Emergency (ER) | payer OTHER, SELFPAY ==
--- NOTE | ~2020-11-17 | CT_ITS ---
EXAMINATION: CT HEAD WITHOUT CONTRAST CLINICAL INFORMATION: Weakness with hypoglycemia, now with headache. COMPARISON: CT had noncontrast 09/26/2020, 04/25/2020 TECHNIQUE: Contiguous axial imaging was performed from the skull base to vertex without intravenous administration of contrast. Additional 2-D coronal and sagittal reformatted images are generated on the CT workstation and uploaded to PACS. This CT examination was performed using dose optimization techniques as appropriate, variously including the following: *Automated exposure control *Adjustment of mA and/or kV according to patient size (this includes techniques or standardized protocols for targeted exams where dose is matched to indication/reason for exam; i.e. extremities or head) *Use of iterative reconstruction technique DLP: 604 mGy-cm FINDINGS: There is no intracranial hemorrhage, hematoma, or extra-axial fluid collection. The ventricles are normal in size. There is no hydrocephalus, edema, or mass effect. The de leon-white matter differentiation appears symmetric. There is no visible acute territorial infarct or mass lesion. Again, there is some mildly accentuated cortical sulci in the frontal regions. The calvarium appears intact. There is no pneumocephalus or orbital emphysema. The visualized sinuses and middle ears and mastoid air cells show no significant mucosal thickening. There are no air-fluid levels. CT/CT head/brain wo con IMPRESSION: No acute intracranial abnormality.
--- NOTE | ~2020-11-17 | XR_ITS ---
EXAMINATION: XR CHEST CLINICAL INFORMATION: Generalized weakness. /Low blood glucose COMPARISON: None TECHNIQUE: Frontal view of the chest was obtained. FINDINGS: The lungs are well-expanded and clear of acute process. The heart size and pulmonary vascularity is normal. No gross bony abnormality seen. There is ventral plate at C7-T1 disc level for fusion. XR/XR chest 1V IMPRESSION: No acute cardiopulmonary process seen
[2020-11-17 09:18] VITALS: BP 140/80
[2020-11-17] MEDS: Glucose Gel 15 GM GEL..GRAM. PO (09:20)
[2020-11-17 09:21] LABS: Glucose, Whole Blood 46 mg/dL (60-115)
--- NOTE | 2020-11-17 09:30 | ECG_ITS ---
Test Reason : AMS Blood Pressure : / mmHG Vent. Rate : 080 BPM Atrial Rate : 080 BPM P-R Int : 170 ms QRS Dur : 084 ms QT Int : 414 ms P-R-T Axes : 033 051 029 degrees QTc Int : 477 ms Normal sinus rhythm Normal ECG When compared with ECG of 25-APR-2020 09:42, No significant change was found Referred By: Svetlana Hawthorne Electronically Signed By:Gonsalo Pitts
[2020-11-17 09:31] VITALS: BP 123/65; PULSE 85; RESP 17; TEMP 36.6; O2SAT 95; BMI 35.9
[2020-11-17 09:41] LABS: Glucose, Whole Blood 168 mg/dL (60-115)
--- NOTE | 2020-11-17 09:44 | PC.NURSE ---
Pt's poc low. Pt alert but drowsy and able to protect aiarway. Given glucose gel15 po and IV started to left wrist. Pt then given IV Dextrose. Repeat poc in 160s. Pt is more awake now but continues to speak very slow with garbled speech.
[2020-11-17 10:41] LABS: MANUAL DIFF FLAG NO
[2020-11-17 10:42] LABS: Basophils Percent Auto 0.3 % (0-2); Eosinophils Absolute Auto 0.1 X10*3/uL (0.0-0.4); Eosinophils Percent Auto 0.7 % (0-4); Hemoglobin 13.8 g/dl (12.0-16.0); Imm Gran Abs Auto 0.07 X10*3/uL (0.00-0.03); Imm Gran Pct Auto 0.6 % (0.0-0.4); Lymphocytes Percent Auto 16.6 % (20-40); Mean Corpuscular HGB Conc 32.1 g/dl (31.0-35.0); Mean Corpuscular Hemoglobin 28.8 pg (27.0-33.0); Mean Corpuscular Volume 89.6 fL (80-98); Mean Platelet Volume 8.9 fL (9.4-12.3); Monocytes Absolute Auto 0.6 X10*3/uL (0.1-1.2); Monocytes Percent Auto 4.9 % (2-11); Neutrophils Absolute Auto 9.3 X10*3/uL (2.0-8.3); Neutrophils Percent Auto 76.9 % (45-73); Platelet Count 357 X10*3/uL (160-400); Red Cell Distribution Width 13.5 % (11.0-16.0); White Blood Count 12.1 X10*3/uL (4.8-10.8)
[2020-11-17 11:02] LABS: Ethanol < 10 mg/dL
[2020-11-17 11:08] LABS: B Type Natriuretic Peptide 16 pg/mL (<100); Troponin-I High Sensitivity < 3.5 ng/L (<3.5-17.0)
[2020-11-17 11:10] LABS: Alanine Aminotransferase 24 U/L (0-31); Alkaline Phosphatase 86 U/L (39-117); Anion Gap 13 (12-20); Aspartate Amino Transferase 20 U/L (5-31); Bilirubin Total 0.3 mg/dL (0.0-1.0); Blood Urea Nitrogen 16 mg/dL (9-16); Calcium 8.9 mg/dL (8.4-10.2); Carbon Dioxide 29 mmol/L (22-29); Chloride 103 mmol/L (96-108); Creatinine Clr Calc Pharmacy 69.1; Estimated Glomerular Filt Rate > 60; Glucose Random 94 mg/dL (60-115); Lipase 10 U/L (8-78); Magnesium 2.4 mg/dL (1.6-2.6); Potassium 4.9 mmol/L (3.3-5.1); Sodium 140 mmol/L (135-145); Total Protein 7.2 g/dL (6.5-8.0)
--- NOTE | 2020-11-17 11:44 | ED.GENADULT ---
HPI - General Adult General Chief complaint: Seizure Stated complaint: Seizures? Time Seen by Provider: 11/17/20 09:26 Source: patient and EMS Mode of arrival: EMS Limitations: other (Poor historian) History of Present Illness HPI narrative: 55-year-old female with a past medical history of diabetes, hypertension, CKD, depression, multiple sclerosis and seizures presenting to the ED via EMS after she was noted to have generalized weakness while be transported from her orthopedics back home and per the waste collection driver she started to shake and due to her history of seizures he was nervous and called EMS. Per EMS patient had a POC of 76. When she arrived here her POC was 42. Patient is alert and oriented x3 on arrival. She reports that this morning her blood glucose level was 138 and she gave herself 8 units of subcu insulin and she went to her orthopedic appointment. She reports that her orthopedic appointment she felt mild generalized weakness she told 1 of the workers there and they gave her water and called for her ride and then she had the episode which is stated above. On arrival here she was given 15 g of p.o. glucose gel and 25 g of IV dextrose. She reports she has a headache otherwise she is feeling better. She denies any dizziness, changes in vision, chest pain, shortness of breath, dyspnea on exertion, orthopnea, palpitations, nausea/vomiting/diarrhea, abdominal pain, back pain, focal weakness, dysuria, hematuria or any other symptoms complaints or concerns at this time MD complaint: Low glucose level and generalized weakness Onset (ago): minute(s) (Prior to arrival) Related Data Home Medications Medication Instructions Recorded Confirmed Lactobacillus acidophilus 1 cap PO DAILY 02/25/20 08/05/20 [Florajen] alprazolam 1 mg PO QID 02/25/20 08/05/20 carisoprodol 1 tab PO TID PRN 02/25/20 08/05/20 citalopram 1 tab PO QAM 02/25/20 08/05/20 fluticasone propion-salmeterol 1 puff PO BID 02/25/20 08/05/20 [Wixela Inhub] fluticasone propionate INTRANASAL 02/25/20 08/05/20 insulin glargine [Lantus Solostar 40 unit SUBCUT BEDTIME 10/19/20 03/30/21 U-100 Insulin] ipratropium bromide 2 spray INTRANASAL BID 02/25/20 08/05/20 ipratropium-albuterol 1 vial INHALATION TID 02/25/20 08/05/20 lisinopril-hydrochlorothiazide 0.5 tab PO 02/25/20 08/05/20 mirtazapine 1 tab PO BEDTIME 02/25/20 08/05/20 prazosin 1 - 3 cap PO BEDTIME PRN 02/25/20 08/05/20 dulaglutide 0.75 mg/0.5 mL 0.75 mg SUBCUT QWEEK 08/05/20 08/05/20 subcutaneous pen injector estradiol 1 g VAGINAL 3XW 08/05/20 08/05/20 insulin aspart U-100 100 unit/mL unit SUBCUT 08/05/20 08/05/20 (3 mL) subcutaneous pen pen needle, diabetic 29 gauge x #100 ea 08/05/20 08/05/20 1/2 Previous Rx's Medication Instructions Recorded oxycodone 5 mg PO Q8H PRN #10 tab 02/29/20 oxycodone 5 mg PO BID PRN #10 tab 03/03/20 ondansetron HCl [Zofran] 4 mg PO Q6H PRN #10 tab 04/25/20 tramadol 50 mg PO BID PRN #10 tab 04/25/20 hydrocortisone 2.5 % topical cream 1 appl CO BID-QID PRN #30 g 08/05/20 with perineal applicator lansoprazole 30 mg capsule,delayed 30 mg PO BID 30 Days #60 cap 11/11/20 release ondansetron 4 mg disintegrating 4 mg PO Q8H #60 tab 11/11/20 tablet simethicone 125 mg chewable tablet 125 mg PO TID PRN #90 tab 11/11/20 Allergies Allergy/AdvReac Type Severity Reaction Status Date / Time shellfish derived Allergy Intermediate ANAPHYLAXIS Verified 11/17/20 09:47 [SHELLFISH DERIVED] aspirin [ASPIRIN] Allergy Unknown ANAPHYLAXIS Verified 11/17/20 09:47 gabapentin [GABAPENTIN] Allergy Unknown ANAPHYLAXIS Verified 11/17/20 09:47 ketorolac [From TORADOL] Allergy Unknown Hives Verified 11/17/20 09:47 Penicillins [PENICILLINS] Allergy Unknown HIVES Verified 11/17/20 09:47 Review of Systems Review of Systems: Constitutional : No Fever, No Chills, No Night Sweats, No Fatigue, No Malaise ENT/Mouth : No Ear Pain, No Nasal Congestion, No Sinus Pain, No sore throat, No Rhinorrhea Eyes: No Eye Pain, No Swelling, No Redness, No Foreign Body, No Discharge, No Vision Changes Cardiovascular : No Chest Pain, No SOB, No Dyspnea on Exertion, No Orthopnea, No Palpitations Respiratory : No Cough, No Sputum, No Wheezing, No Dyspnea Gastrointestinal : No Nausea, No Vomiting, No Diarrhea, No Constipation, No abdominal Pain, No Hematochezia, No Melena Genitourinary : No Dysuria, No Urinary Frequency, No Urinary Incontinence, No Urgency, No Flank Pain Musculoskeletal : No joint pain, No Myalgias Skin : No lacerations Neuro : Positive headache and generalized weakness, No Focal weakness, No Numbness, No Paresthesias, No Loss of Consciousness, No Dizziness Yes all other systems are reviewed and are negative PMFSH Past Medical History Attestation statement: The following information was validated with the patient. Medical History Anxiety Cervical cancer Diabetes Diarrhea Fracture of fifth metatarsal bone Hx of abdominal pain Kidney stones Pseudoseizures Stomach cancer TIA (transient ischemic attack) Surgical History History of esophagogastroduodenoscopy (EGD) History of neck surgery Hx of arthroscopy of knee Hx of cholecystectomy Hx of colonoscopy Hx of sinus surgery Hx of ventral hernia repair Total knee replacement status Family History Family History Mother Cancer Brother Cancer Stomach problems Acid reflux Social History Social History Household Members: Spouse Alcohol intake: never Patient Tobacco Use Status: Never used Tobacco Use of substances other than those prescribed or required for medical reasons: No Advance Directives: Yes Advance Directives Information Provided: Yes Advance Directives on File: No Physical Exam Vital Signs: Vital Signs: Last Vital Signs Temp 97.8 F 11/17/20 09:31 Pulse 85 11/17/20 09:31 Resp 17 11/17/20 09:31 BP 123/65 11/17/20 09:31 Pulse Ox 95 11/17/20 09:31 Body Mass Index 35.9 Vital signs have been reviewed as normal and appeared to be correct. Blood pressure normal. Heart rate normal. Respiration rate normal. Temperature normal. Oxygen saturation normal. Appearance: Alert. Oriented X3. No acute distress. Head: Normal external exam. Normocephalic. Atraumatic. Able to rotate head bilaterally. Eyes: PERRLA. EOMI. No nystagmus noted. Conjunctiva and sclera normal. Eyelids normal. Corneal reflex normal. ENT: EAC normal. TM's Normal. Hearing normal. Pharynx normal. Uvula midline. tongue midline. Moist mucous membranes. No trismus noted. No drooling noted. No muffled voice noted. No nystagmus noted. Neck: Normal inspection. Neck supple. FROM. No adenopathy. Trachea midline. Thyroid Normal. No meningeal signs. No neck mass noted. CVS: Normal heart rate and rhythm. Heart sound normal. No murmurs noted. Pulses normal throughout. Respiratory: No respiratory distress. Painless inspiration. Breath sounds normal. No wheezes/rales/rhonchi noted. Chest nontender. No accessory muscle usage noted or decreased air movement noted. Abdomen: Soft and nontender. Bowel sounds normal in all 4 quadrants. No distention noted. No organomegaly noted. No visible injury noted. Back: No CVA tenderness. Full range of motion noted. Skin: Skin warm and dry. Normal skin color. Normal skin turgor. No rashes/lesions/lacerations noted. Extremities: No lower extremity edema. Extremities exhibit normal range of motion. Extremities nontender. Able to shrug shoulders bilaterally and keep up against resistance. Neuro: Oriented X 3. No motor deficit. No sensory deficit. Reflexes normal. Moving all extremities. No focal motor deficits. Cranial nerves II-XI intact bilaterally. Facial strength normal. Normal cognition. Speech normal. Gait normal. Strength 5/5 throughout. No pronator drift. No tremor noted. No fasciculations noted. No rigidity noted. Muscle tone normal throughout. No asterixis noted. [id number] test normal. Heel to biggs test normal. Tandem gait normal. Does not sway with eyes open. Romberg test negative. Rapid alternating movement upper extremity normal. Rapid alternating movement lower extremity normal. Hand drop from overhead Misses face. NIHSS score 0. Course Course Course Narrative: 9:30am - 55-year-old female with a past medical history of diabetes, hypertension, CKD, depression, multiple sclerosis and seizures presenting to the ED via EMS for generalized weakness and hypoglycemia that occurred prior to arrival. On arrival she is alert and oriented x3. Not in any acute distress. No focal neural deficits are noted. NIH SS score 0. Blood glucose low at 42 therefore she was given 15 g of p.o. glucose showing 25 g of IV dextrose and she reports she is feeling better only has migraine headache denies any other symptoms. Plan: Labs, EKG, CT scan of brain, chest x-ray. Patient is requesting something for her headache and reports that she normally takes 1 mg of Xanax and she is asking for that for her anxiety as well therefore will give 25 mg of IV Benadryl, 10 mg of Reglan, 10 mg of Decadron, 975 mg of Tylenol and 1 mg of Xanax and re-evaluate. Reevaluation(s) Reevaluation #1: - obtained and patient [place] [address]. Otherwise all other labs are within normal limits. Her glucose level is now 168. CT scan of brain without contrast within normal limits no acute processes are noted. EKG is normal sinus rhythm with a ventricular rate of 80 with normal CO interval normal QRS duration normal QT/QTC interval. No acute ischemic changes are noted. Similar compared to prior EKG 04/25/2020. - patient reports she is feeling better therefore she will be discharged at this time as glucose has improved and her symptoms are almost completely resolved. Daughter to pick up attendant patient. Patient instructed to return if any new or worsening symptoms to follow up with primary care provider. Patient understands agrees with this plan. Time: 12:00 Medical Decision Making Medical Records Medical records reviewed: Yes I reviewed the patient's medical records. Lab Data Lab results reviewed: Yes I reviewed the patient's lab results. Result diagrams: 11/17/20 10:35 11/17/20 10:36 Labs: Lab Results 11/17/20 11/17/20 11/17/20 Range/Units 09:18 09:38 10:35 WBC 12.1 H (4.8-10.8) X10*3/uL RBC 4.80 (4.20-5.50) X10*6/uL Hgb 13.8 (12.0-16.0) g/dl Hct 43.0 (37-47) % MCV 89.6 (80-98) fL MCH 28.8 (27.0-33.0) pg MCHC 32.1 (31.0-35.0) g/dl RDW 13.5 (11.0-16.0) % Plt Count 357 (160-400) X10*3/uL MPV 8.9 L (9.4-12.3) fL Immature Gran % (Auto) 0.6 H (0.0-0.4) % Neut % (Auto) 76.9 H (45-73) % Lymph % (Auto) 16.6 L (20-40) % Prentiss % (Auto) 4.9 (2-11) % Eos % (Auto) 0.7 (0-4) % Baso % (Auto) 0.3 (0-2) % Lymph # (Auto) 2.0 (1.2-4.9) X10*3/uL Prentiss # (Auto) 0.6 (0.1-1.2) X10*3/uL Eos # (Auto) 0.1 (0.0-0.4) X10*3/uL Baso # (Auto) 0.0 (0.0-0.2) X10*3/uL Abs Immat Gran (auto) 0.07 H (0.00-0.03) X10*3/uL Absolute Neuts (auto) 9.3 H (2.0-8.3) X10*3/uL Absolute Nucleated RBC 0.000 (0.0-0.012) X10*3/uL Nucleated RBC % (auto) 0.0 (0.0-0.2) /100WBC Sodium (135-145) mmol/L Potassium (3.3-5.1) mmol/L Chloride (96-108) mmol/L Carbon Dioxide (22-29) mmol/L Anion Gap (12-20) BUN (9-16) mg/dL Creatinine (0.5-1.4) mg/dL Estim Creat Clear Calc Estimated GFR POC Glucose 46 L* 168 H (60-115) mg/dL Random Glucose (60-115) mg/dL Calcium (8.4-10.2) mg/dL Magnesium (1.6-2.6) mg/dL Total Bilirubin (0.0-1.0) mg/dL AST (5-31) U/L ALT (0-31) U/L Alkaline Phosphatase (39-117) U/L Total Creatine Kinase (26-140) U/L Troponin I High Sens (<3.5-17.0) ng/L B-Natriuretic Peptide (<100) pg/mL Total Protein (6.5-8.0) g/dL Albumin (3.5-5.0) g/dL Lipase (8-78) U/L Ethyl Alcohol mg/dL 11/17/20 11/17/20 11/17/20 Range/Units 10:36 10:36 10:36 WBC (4.8-10.8) X10*3/uL RBC (4.20-5.50) X10*6/uL Hgb (12.0-16.0) g/dl Hct (37-47) % MCV (80-98) fL MCH (27.0-33.0) pg MCHC (31.0-35.0) g/dl RDW (11.0-16.0) % Plt Count (160-400) X10*3/uL MPV (9.4-12.3) fL Immature Gran % (Auto) (0.0-0.4) % Neut % (Auto) (45-73) % Lymph % (Auto) (20-40) % Prentiss % (Auto) (2-11) % Eos % (Auto) (0-4) % Baso % (Auto) (0-2) % Lymph # (Auto) (1.2-4.9) X10*3/uL Prentiss # (Auto) (0.1-1.2) X10*3/uL Eos # (Auto) (0.0-0.4) X10*3/uL Baso # (Auto) (0.0-0.2) X10*3/uL Abs Immat Gran (auto) (0.00-0.03) X10*3/uL Absolute Neuts (auto) (2.0-8.3) X10*3/uL Absolute Nucleated RBC (0.0-0.012) X10*3/uL Nucleated RBC % (auto) (0.0-0.2) /100WBC Sodium 140 (135-145) mmol/L Potassium 4.9 (3.3-5.1) mmol/L Chloride 103 (96-108) mmol/L Carbon Dioxide 29 (22-29) mmol/L Anion Gap 13 (12-20) BUN 16 (9-16) mg/dL Creatinine 0.87 (0.5-1.4) mg/dL Estim Creat Clear Calc 69.1 Estimated GFR > 60 POC Glucose (60-115) mg/dL Random Glucose 94 D (60-115) mg/dL Calcium 8.9 (8.4-10.2) mg/dL Magnesium 2.4 (1.6-2.6) mg/dL Total Bilirubin 0.3 (0.0-1.0) mg/dL AST 20 (5-31) U/L ALT 24 (0-31) U/L Alkaline Phosphatase 86 (39-117) U/L Total Creatine Kinase 104 D (26-140) U/L Troponin I High Sens < 3.5 (<3.5-17.0) ng/L B-Natriuretic Peptide 16 (<100) pg/mL Total Protein 7.2 (6.5-8.0) g/dL Albumin 4.0 (3.5-5.0) g/dL Lipase 10 (8-78) U/L Ethyl Alcohol < 10 mg/dL ECG Data Attestation: I personally reviewed and interpreted this ECG as follows: Interpretation: EKG is normal sinus rhythm with a ventricular rate of 80 with normal CO interval normal QRS duration normal QT/QTC interval. No acute ischemic changes are noted. Similar compared to prior EKG 04/25/2020. Discharge Plan Discharge Clinical Impression: Hypoglycemia, Headache, migraine Patient Disposition: Home, Self-Care Instructions: Hypoglycemia in a Person with Diabetes (ED), Migraine Headache (ED) Additional Instructions: Continue taking her previously prescribed medications as previously prescribed. Prescriptions: No Action carisoprodol 350 mg tablet 1 tab PO TID PRN (Reason: Spasms) RF: 0 citalopram 40 mg tablet 1 tab PO QAM RF: 0 lisinopril-hydrochlorothiazide 20-25 mg tablet 0.5 tab PO RF: 0 fluticasone propion-salmeterol [Wixela Inhub] 250-50 mcg/dose blister with device 1 puff PO BID RF: 0 ipratropium-albuterol 0.5 mg-3 mg(2.5 mg base)/3 mL solution for nebulization 1 vial inhalation TID RF: 0 prazosin 1 mg capsule 1 - 3 cap PO BEDTIME PRN (Reason: nightmares) RF: 0 mirtazapine 30 mg tablet 1 tab PO BEDTIME RF: 0 fluticasone propionate 50 mcg/actuation spray,suspension intranasal RF: 0 ipratropium bromide 0.03 % spray,non-aerosol 2 spray intranasal BID RF: 0 Lantus Solostar U-100 Insulin 100 unit/mL (3 mL) insulin pen 40 unit subcut BEDTIME RF: 0 Florajen Acidophilus 460 mg (20 billion cell) capsule 1 cap PO DAILY RF: 0 alprazolam 1 mg Tablet 1 mg PO QID RF: 0 oxycodone 5 mg tablet 5 mg PO Q8H PRN (Reason: pain) Qty: 10 RF: 0 oxycodone 5 mg tablet 5 mg PO BID PRN (Reason: pain) Qty: 10 RF: 0 tramadol 50 mg tablet 50 mg PO BID PRN (Reason: pain) Qty: 10 RF: 0 ondansetron HCl [Zofran] 4 mg tablet 4 mg PO Q6H PRN (Reason: nausea and vomiting) Qty: 10 RF: 0 Trulicity 0.75 mg/0.5 mL pen injector 0.75 mg subcut QWEEK RF: 0 (DME) pen needle, diabetic 29 gauge x 1/2 needle See Rx Instructions ea .ROUTE .MEDSUPPLY Qty: 100 RF: 0 estradiol 0.01 % (0.1 mg/gram) cream 1 g vaginal 3XW RF: 0 insulin aspart U-100 100 unit/mL (3 mL) insulin pen subcut RF: 0 hydrocortisone [Procto-Med HC] 2.5 % cream with perineal applicator 1 appl CO BID-QID PRN (Reason: hemorrhoids) Qty: 30 RF: 0 lansoprazole 30 mg capsule,delayed release(DR/EC) 30 mg PO BID 30 Days Qty: 60 RF: 2 simethicone 125 mg tablet,chewable 125 mg PO TID PRN (Reason: abdominal distention) Qty: 90 RF: 2 ondansetron 4 mg tablet,disintegrating 4 mg PO Q8H Qty: 60 RF: 1 Referrals: Physician,Unknown [Primary Care Provider] - 2 days (your pcp) Print Language: Frisian
[2020-11-17] MEDS: ALPRAZolam 0.5 MG TABLET 1 MG PO (12:02)
[2020-11-17] MEDS: Acetaminophen 325 MG TABLET 975 MG PO (12:02)
[2020-11-17] MEDS: dexAMETHasone sod phosphate 10 MG/ML VIAL IVPUSH (12:04)
[2020-11-17] MEDS: diphenhydrAMINE HCL 50 MG/ML VIAL 25 MG IVPUSH (12:05)
[2020-11-17] MEDS: Metoclopramide HCl 10 MG/2 ML VIAL IVPUSH (12:08)
[2020-11-17 12:09] VITALS: BP 133/72; PULSE 78; RESP 18; O2SAT 97
[2020-11-17 12:09] LABS: Prothrombin Time 11.1 SEC (9.9-13.0)
--- NOTE | 2020-11-17 12:14 | PC.NURSE ---
Pt medicated for headache, anxiety, and nausea. VSS. Pt in NAD
== END 2020-11-17 13:07 | disposition home or self-care (01) ==
PROVIDERS: Physician Assistant Medical; Emergency Provider Emergency Medicine
DX: G43.909 Migraine, unspecified, not intractable, without status migrainosus (principal); E11.649 Type 2 diabetes mellitus with hypoglycemia without coma; I12.9 Hypertensive chronic kidney disease with stage 1 through stage 4 chronic kidney disease, or unspecified chronic kidney disease; E11.22 Type 2 diabetes mellitus with diabetic chronic kidney disease; N18.9 Chronic kidney disease, unspecified; R53.1 Weakness; Z79.4 Long term (current) use of insulin; Z79.899 Other long term (current) drug therapy
CPT/HCPCS: 36415; 70450; 71045; 80053; 82077; 82550; 82947; 83690; 83735; 83880; 84484; 85025; 85610; 93005; 96365; 96375; 99284; J1100; J1200; J2765

== ENCOUNTER 2020-11-23 18:51 | Emergency (ER) | payer OTHER, SELFPAY ==
[2020-11-23 19:16] VITALS: BP 117/69; BP 158/77; PULSE 101; PULSE 103; RESP 16; TEMP 36.6; O2SAT 100; O2SAT 96; BMI 35.9
[2020-11-23 19:17] LABS: Glucose, Whole Blood 147 mg/dL (60-115)
--- NOTE | 2020-11-23 19:24 | ED.GENADULT ---
HPI - General Adult General Chief complaint: Weakness Stated complaint: HYPOGLYCEMIA Time Seen by Provider: 11/23/20 19:23 Source: patient Mode of arrival: ambulatory Limitations: no limitations History of Present Illness HPI narrative: Patient diabetic been here 3 times in last 10 days today she comes here for blood sugar low in 20s. Patient takes Lantus 40 units at bedtime and then Humalog according to sliding scale at 150 she takes 5 units, at 200 - 10 units and at 250 she takes 12 units and t 300 she takes 14 units today at 04:00 o'clock she took 10 units of Humalog for blood sugar of 168 and just prior to arrival noticed her blood sugar in the low 20s she was given glucose p.o. blood sugar now is 174 patient also chronic back pain taking Tylenol for pain Related Data Home Medications Medication Instructions Recorded Confirmed Lactobacillus acidophilus 1 cap PO DAILY 02/25/20 08/05/20 [Florajen] alprazolam 1 mg PO QID 02/25/20 08/05/20 carisoprodol 1 tab PO TID PRN 02/25/20 08/05/20 citalopram 1 tab PO QAM 02/25/20 08/05/20 fluticasone propion-salmeterol 1 puff PO BID 02/25/20 08/05/20 [Wixela Inhub] fluticasone propionate INTRANASAL 02/25/20 08/05/20 insulin glargine [Lantus Solostar 40 unit SUBCUT BEDTIME 02/25/20 08/05/20 U-100 Insulin] ipratropium bromide 2 spray INTRANASAL BID 02/25/20 08/05/20 ipratropium-albuterol 1 vial INHALATION TID 02/25/20 08/05/20 lisinopril-hydrochlorothiazide 0.5 tab PO 02/25/20 08/05/20 mirtazapine 1 tab PO BEDTIME 02/25/20 08/05/20 prazosin 1 - 3 cap PO BEDTIME PRN 02/25/20 08/05/20 dulaglutide 0.75 mg/0.5 mL 0.75 mg SUBCUT QWEEK 08/05/20 08/05/20 subcutaneous pen injector estradiol 1 g VAGINAL 3XW 08/05/20 08/05/20 insulin aspart U-100 100 unit/mL unit SUBCUT 08/05/20 08/05/20 (3 mL) subcutaneous pen pen needle, diabetic 29 gauge x #100 ea 08/05/20 08/05/20 1/2 Previous Rx's Medication Instructions Recorded oxycodone 5 mg PO Q8H PRN #10 tab 02/29/20 oxycodone 5 mg PO BID PRN #10 tab 03/03/20 ondansetron HCl [Zofran] 4 mg PO Q6H PRN #10 tab 04/25/20 tramadol 50 mg PO BID PRN #10 tab 04/25/20 hydrocortisone 2.5 % topical cream 1 appl LA BID-QID PRN #30 g 08/05/20 with perineal applicator lansoprazole 30 mg capsule,delayed 30 mg PO BID 30 Days #60 cap 11/11/20 release ondansetron 4 mg disintegrating 4 mg PO Q8H #60 tab 11/11/20 tablet simethicone 125 mg chewable tablet 125 mg PO TID PRN #90 tab 11/11/20 Allergies Allergy/AdvReac Type Severity Reaction Status Date / Time shellfish derived Allergy Intermediate ANAPHYLAXIS Verified 11/23/20 19:20 [SHELLFISH DERIVED] aspirin [ASPIRIN] Allergy Unknown ANAPHYLAXIS Verified 11/23/20 19:20 gabapentin [GABAPENTIN] Allergy Unknown ANAPHYLAXIS Verified 11/23/20 19:20 ketorolac [From TORADOL] Allergy Unknown Hives Verified 11/23/20 19:20 Penicillins [PENICILLINS] Allergy Unknown HIVES Verified 11/23/20 19:20 Review of Systems Review of Systems: Yes all other systems are reviewed and are negative PMFSH Past Medical History Medical History Anxiety Cervical cancer Diabetes Diarrhea Fracture of fifth metatarsal bone Hx of abdominal pain Kidney stones Pseudoseizures Stomach cancer TIA (transient ischemic attack) Surgical History History of esophagogastroduodenoscopy (EGD) History of neck surgery Hx of arthroscopy of knee Hx of cholecystectomy Hx of colonoscopy Hx of sinus surgery Hx of ventral hernia repair Total knee replacement status Family History Family History Mother Cancer Brother Cancer Stomach problems Acid reflux Social History Social History Household Members: Spouse Alcohol intake: never Patient Tobacco Use Status: Never used Tobacco Advance Directives: No Advance Directives Information Provided: No Physical Exam Vital Signs: Vital Signs: Last Vital Signs Temp 97.8 F 11/23/20 19:16 Pulse 101 H 11/23/20 19:16 Resp 16 11/23/20 19:16 BP 117/69 11/23/20 19:16 Pulse Ox 96 11/23/20 19:16 Body Mass Index 35.9 Appearance: Alert. Oriented X3. No acute distress. Eyes: PERRLA, No Nystagmus ENT: Pharynx normal. Oral Mucosa moist Neck: Normal inspection. Neck supple. CVS: Normal heart rate and rhythm. Pulses normal. Respiratory: No respiratory distress. Equal air entry bilateral, no wheezing/rales/rhonchi Abdomen: Soft and nontender. Bowel sounds are present, no mass palpable, no CVA tenderness Skin: Skin warm and dry. Normal skin color. Normal skin turgor. Extremities: No lower extremity edema. No calf tenderness Neuro: Oriented X 3. No motor deficit. No sensory deficit.No cerebellar signs , cranial nerves II-XII intact Medical Decision Making MDM Narrative Medical decision making narrative: Patient frequent hypoglycemic after using lispro insulin dosage seems to be higher than supposed to be will decrease the dose of sliding scale and discharge patient home Lab Data Lab results reviewed: Yes I reviewed the patient's lab results. Labs: Lab Results 11/23/20 11/23/20 11/23/20 Range/Units 19:00 20:37 21:05 POC Glucose 147 H 135 H (60-115) mg/dL Urine Color YELLOW Urine Appearance CLEAR Urine pH 6.0 (5.0-8.0) Ur Specific [place] >= 1.030 H (1.005-1.025) Urine Protein NEG (NEG-TRACE) MG/DL Urine Glucose (UA) NEG (NEG) MG/DL Urine Ketones NEG (NEG) MG/DL Urine Blood NEG (NEG) Urine Nitrite NEG (NEG) Ur Leukocyte Esterase NEG (NEG) Discharge Plan Discharge Clinical Impression: Diabetes type 2, uncontrolled Qualifiers: Glycemic state: with hypoglycemia Coma presence: without coma Qualified Code(s): E11.649 - Type 2 diabetes mellitus with hypoglycemia without coma Patient Disposition: Home, Self-Care Instructions: Hypoglycemia in a Person with Diabetes (ED) Additional Instructions: Continue take her Lantus as prescribed by her PCP Decrease the Lispro sliding scale and follow this chart before meals: 100- 150 : 2 units 151-200: 4 units 210-250: 6 units 251-300 ; 8 units 301-350: 10 units more than 351 : 12 units and call MD Prescriptions: No Action carisoprodol 350 mg tablet 1 tab PO TID PRN (Reason: Spasms) RF: 0 citalopram 40 mg tablet 1 tab PO QAM RF: 0 lisinopril-hydrochlorothiazide 20-25 mg tablet 0.5 tab PO RF: 0 fluticasone propion-salmeterol [Wixela Inhub] 250-50 mcg/dose blister with device 1 puff PO BID RF: 0 ipratropium-albuterol 0.5 mg-3 mg(2.5 mg base)/3 mL solution for nebulization 1 vial inhalation TID RF: 0 prazosin 1 mg capsule 1 - 3 cap PO BEDTIME PRN (Reason: nightmares) RF: 0 mirtazapine 30 mg tablet 1 tab PO BEDTIME RF: 0 fluticasone propionate 50 mcg/actuation spray,suspension intranasal RF: 0 ipratropium bromide 0.03 % spray,non-aerosol 2 spray intranasal BID RF: 0 Lantus Solostar U-100 Insulin 100 unit/mL (3 mL) insulin pen 40 unit subcut BEDTIME RF: 0 Florajen Acidophilus 460 mg (20 billion cell) capsule 1 cap PO DAILY RF: 0 alprazolam 1 mg Tablet 1 mg PO QID RF: 0 oxycodone 5 mg tablet 5 mg PO Q8H PRN (Reason: pain) Qty: 10 RF: 0 oxycodone 5 mg tablet 5 mg PO BID PRN (Reason: pain) Qty: 10 RF: 0 tramadol 50 mg tablet 50 mg PO BID PRN (Reason: pain) Qty: 10 RF: 0 ondansetron HCl [Zofran] 4 mg tablet 4 mg PO Q6H PRN (Reason: nausea and vomiting) Qty: 10 RF: 0 Trulicity 0.75 mg/0.5 mL pen injector 0.75 mg subcut QWEEK RF: 0 (DME) pen needle, diabetic 29 gauge x 1/2 needle See Rx Instructions ea .ROUTE .MEDSUPPLY Qty: 100 RF: 0 estradiol 0.01 % (0.1 mg/gram) cream 1 g vaginal 3XW RF: 0 insulin aspart U-100 100 unit/mL (3 mL) insulin pen subcut RF: 0 hydrocortisone [Procto-Med HC] 2.5 % cream with perineal applicator 1 appl LA BID-QID PRN (Reason: hemorrhoids) Qty: 30 RF: 0 lansoprazole 30 mg capsule,delayed release(DR/EC) 30 mg PO BID 30 Days Qty: 60 RF: 2 simethicone 125 mg tablet,chewable 125 mg PO TID PRN (Reason: abdominal distention) Qty: 90 RF: 2 ondansetron 4 mg tablet,disintegrating 4 mg PO Q8H Qty: 60 RF: 1 Interventions: ED Discharge Assessment Last Done: 11/23/20 21:12 Discharge Date/Time: 11/23/20 21:13
[2020-11-23 20:45] LABS: Glucose Urine UA NEG (NEG); Leukocyte Esterase Urine NEG (NEG); Nitrite Urine NEG (NEG); Specific Gravity - Urine >= 1.030 (1.005-1.025); Urine Blood NEG (NEG); Urine Ketones NEG (NEG); Urine Protein NEG (NEG-TRACE)
[2020-11-23 20:47] LABS: Appearance Urine CLEAR; Color Urine YELLOW
[2020-11-23 21:09] LABS: Glucose, Whole Blood 135 mg/dL (60-115)
== END 2020-11-23 21:13 | disposition home or self-care (01) ==
PROVIDERS: Emergency Provider Internal Medicine
DX: E11.649 Type 2 diabetes mellitus with hypoglycemia without coma (principal); Z79.4 Long term (current) use of insulin; Z79.899 Other long term (current) drug therapy
CPT/HCPCS: 81003; 82947; 99283

== ENCOUNTER 2020-11-26 10:03 | Outpatient (REF) | payer OTHER, SELFPAY ==
--- NOTE | ~2020-11-26 | XR_ITS ---
EXAMINATION: BILATERAL KNEE CLINICAL INFORMATION: 4 views each knee. COMPARISON: None TECHNIQUE: Right knee 4 views. Left knee 4 views. FINDINGS: Right knee: There is total right knee prosthesis with the prosthetic components in satisfactory alignment. No visible acute fracture, dislocation seen. No joint effusion. No prosthetic loosening. Left knee: There is mild reduction in the medial and patellofemoral compartment joint space with periarticular spurring and mild superior patellar spurring. There is a moderate size anterior superior patellar enthesophytes. No abnormal joint effusion seen. XR/XR knee RT 4V IMPRESSION: Mild degenerative changes medial and patellofemoral compartments without any visible acute fracture, dislocation or loose bodies. There is a moderate size anterior superior patellar enthesophyte. No abnormal joint effusion seen in the left knee. Total right knee arthroplasty with prosthetic components in satisfactory alignment.
--- NOTE | ~2020-11-26 | XR_ITS ---
EXAMINATION: BILATERAL KNEE CLINICAL INFORMATION: 4 views each knee. COMPARISON: None TECHNIQUE: Right knee 4 views. Left knee 4 views. FINDINGS: Right knee: There is total right knee prosthesis with the prosthetic components in satisfactory alignment. No visible acute fracture, dislocation seen. No joint effusion. No prosthetic loosening. Left knee: There is mild reduction in the medial and patellofemoral compartment joint space with periarticular spurring and mild superior patellar spurring. There is a moderate size anterior superior patellar enthesophytes. No abnormal joint effusion seen. XR/XR knee LT 4V IMPRESSION: Mild degenerative changes medial and patellofemoral compartments without any visible acute fracture, dislocation or loose bodies. There is a moderate size anterior superior patellar enthesophyte. No abnormal joint effusion seen in the left knee. Total right knee arthroplasty with prosthetic components in satisfactory alignment.
== END 2020-11-26 10:04 | disposition home or self-care (01) ==
LOC: HO.XRAY 10:03
PROVIDERS: PCP Family Medicine; Visit Provider Internal Medicine Addiction Medicine
DX: M25.561 Pain in right knee (principal); M17.12 Unilateral primary osteoarthritis, left knee
CPT/HCPCS: 73564

== ENCOUNTER → 2021-08-17 12:03 | Outpatient (BNVA) | payer OTHER, SELFPAY | PROVIDERS: PCP Family Medicine; Visit Provider Internal Medicine Gastroenterology | DX: Z13.89 Encounter for screening for other disorder (principal) | CPT/HCPCS: Q3014 ==

== ENCOUNTER 2021-10-13 14:25 | Inpatient (IN) | payer OTHER, SELFPAY ==
--- NOTE | ~2021-10-13 | MR_ITS ---
EXAMINATION: MR LUMBAR SPINE WITHOUT AND WITH CONTRAST CLINICAL INFORMATION: Sagittal paresthesias with urinary retention. COMPARISON: Lumbar spine MRI 01/02/2020. TECHNIQUE: MRI of the lumbar spine was obtained using routine sequences with and without contrast. Intravenous contrast: 10 mL Gadavist. FINDINGS: There are 5 nonrib-bearing lumbar-type vertebral bodies. Lumbar alignment is normal. The vertebral body heights are maintained. The disc volumes are preserved and the discs remain well-hydrated. There is no bone marrow edema. There are no acute fractures. There are intraosseous hemangiomas within the T11, T12, L3, and L4 vertebral bodies. No suspicious enhancing intraosseous lesions. There is no pathologic intrathecal enhancement. No pathologic enhancement along the cauda equina nerve roots. L1-L2: Disc contour is normal. No central canal stenosis and no foraminal stenosis. L2-L3: Small annular disc bulge and mild bilateral facet arthropathy. No central canal stenosis and no foraminal stenosis. L3-L4: Diffuse annular disc bulge. Mild to moderate bilateral facet arthropathy and ligamentum flavum thickening. No central canal stenosis and no foraminal stenosis. Findings unchanged. L4-L5: Small annular disc bulge and moderate bilateral hypertrophic facet arthropathy and ligamentum flavum thickening. There is no central canal stenosis. There is mild foraminal encroachment bilaterally. L5-S1: Diffuse annular disc bulge and mild bilateral facet arthropathy. There is no central canal stenosis and there is no foraminal stenosis. MR/MR lumbar spine wo/w con IMPRESSION: There is mild to moderate lumbar spondylosis. There is no severe central canal stenosis and there is no severe foraminal stenosis within the lumbar spine. No pathologic intrathecal enhancement. Multiple intraosseous hemangiomas as discussed above.
--- NOTE | ~2021-10-13 | MR_ITS ---
MR BRAIN WITHOUT CONTRAST MR CERVICAL SPINE WITHOUT AND WITH CONTRAST MR THORACIC SPINE WITHOUT AND WITH CONTRAST CLINICAL INFORMATION: Multiple sclerosis. Paresthesias. COMPARISON: Head CT 10/13/2021, brain MRI 08/24/2019. Cervical spine CT 10/13/2021. TECHNIQUE: Multiplanar multisequence MR imaging of the brain obtained without contrast. Additionally, a cervical spine and thoracic MRI are obtained before and following the administration of 10 mL of Gadavist intravenous contrast without complication. FINDINGS: BRAIN MRI: Moderate T2 signal changes within the supratentorial subcortical and deep white matter in a nonspecific distribution, progressed since 08/24/2019 brain MRI. No infratentorial lesions. There are no acute infarcts and diffusion-weighted imaging. No intracranial hemorrhage on the gradient series. No hydrocephalus, extra-axial surface collection, or midline shift. Major arterial flow voids are maintained. The midline structures are normal. Cerebellar tonsillar position is normal. Bone marrow signal is homogenous and normal. No significant soft tissue findings. No postcontrast imaging of the brain was performed. CERVICAL SPINE MRI: Redemonstrated postoperative changes following ACDF at the C3-C4 and the C6-C7 levels. Solid interbody arthrodesis at C4-C6 again noted. There is no bone marrow edema. There are no acute fractures. Craniocervical junction is unremarkable. No cervical cord lesions are identified accounting for artifact. There are no enhancing cervical cord lesions and there is no pathologic intrathecal enhancement accounting for artifact. At C6-C7, osteophytic ridging mildly narrows the central canal and results in mild to moderate left-sided foraminal stenosis. Additional mild spondylitic changes throughout the cervical spine. No severe central canal stenosis and no severe foraminal stenosis within the cervical spine. THORACIC SPINE MRI: There are 12 rib bearing thoracic type vertebral bodies. There are incident intraosseous hemangiomas within the left T3 pedicle and within the T11 and T12 vertebral bodies. Thoracic alignment is maintained. Vertebral body heights are preserved. There is no bone marrow edema to suggest an acute fracture. Resting cord morphology is normal. There are no thoracic cord signal changes accounting for artifact. No enhancing thoracic cord lesions. No significant thoracic disc herniations. No severe central canal stenosis and no severe foraminal stenosis within the thoracic spine. MR/MR cervical spine wo/w con IMPRESSION: - Moderate T2 signal changes within the supratentorial subcortical and deep white matter in a nonspecific distribution, progressed since 08/24/2019 brain MRI. No postcontrast imaging of the brain was performed for this study. There are no acute infarcts. - There are no cervical cord lesions accounting for artifact. Redemonstrated postoperative changes following ACDF at the C3-C4 and the C6-C7 levels. Solid interbody arthrodesis at C4-C6 again noted. At C6-C7, osteophytic ridging mildly narrows the central canal and results in mild to moderate left-sided foraminal stenosis. No severe central canal stenosis and no severe foraminal stenosis within the cervical spine. - No thoracic cord lesions.
--- NOTE | ~2021-10-13 | XR_ITS ---
EXAMINATION: XR KNEE, LEFT CLINICAL INFORMATION: Pain status post fall COMPARISON: 11/26/2020 TECHNIQUE: Four views of the left knee. FINDINGS: No fracture or subluxation. Mild medial compartment joint space narrowing. Remaining joint spaces are maintained. No joint effusion. Enthesophyte formation of the patella. XR/XR knee LT 4V IMPRESSION: Mild narrowing at the medial compartment. No fracture or malalignment.
--- NOTE | ~2021-10-13 | CT_ITS ---
EXAMINATION: NONCONTRAST HEAD CT NONCONTRAST CERVICAL SPINE CT INDICATION INFORMATION: Fall with head strike. Unsteady gait. COMPARISON: 11/17/2020 TECHNIQUE: Separate noncontrast CT examinations of the head and cervical spine were performed. Coronal and sagittal images were created for each examination at the technologist workstation. This CT examination was performed using dose optimization techniques as appropriate, variously including the following: *Automated exposure control *Adjustment of mA and/or kV according to patient size (this includes techniques or standardized protocols for targeted exams where dose is matched to indication/reason for exam; i.e. extremities or head) *Use of iterative reconstruction technique DLP: 1262 mGy-cm FINDINGS: Head: There is no evidence of acute intracranial hemorrhage or territorial infarction. No abnormal mass effect or midline shift is seen. [place] to white matter differentiation is well preserved. No extra-axial fluid collections are identified. No hydrocephalus. Proportional prominence of the ventricles and sulcal spaces is consistent with mild volume loss. Patchy periventricular and deep white matter hypoattenuation is consistent with mild small vessel ischemic changes. No acute osseous or soft tissue abnormality. The mastoid air cells and visualized portions of the paranasal sinuses are well aerated. Cervical spine: Anterior cervical fusion hardware at C3-C4 and C6-C7. Hardware is intact. There is bony osseous fusion at C4-C5 and C5-C6. There is anatomic alignment of the vertebral bodies and posterior elements. The atlantoaxial and atlantooccipital articulations are intact. Vertebral body heights are maintained. There is multilevel intervertebral disc space narrowing with endplate osteophyte formation and facet arthropathy. No evidence of acute fracture. No prevertebral soft tissue swelling. Visualized portions of the lung apices are unremarkable. The thyroid gland is unremarkable. CT/CT cervical spine wo con IMPRESSION: 1. No acute intracranial finding. 2. No acute fracture or malalignment of the cervical spine. Degenerative changes with similar appearance of fusion throughout.
[2021-10-13 14:32] VITALS: BP 140/91; BP 142/90; PULSE 86; PULSE 90; RESP 17; TEMP 36.9; O2SAT 97; O2SAT 98; BMI 36.0
--- NOTE | 2021-10-13 14:47 | ECG_ITS ---
Test Reason : DIZZINESS Blood Pressure : / mmHG Vent. Rate : 078 BPM Atrial Rate : 078 BPM P-R Int : 144 ms QRS Dur : 078 ms QT Int : 394 ms P-R-T Axes : 029 040 014 degrees QTc Int : 449 ms Normal sinus rhythm Normal ECG When compared with ECG of 17-NOV-2020 09:47, No significant change was found Referred By: Steffany Brown Electronically Signed By:ANDREA SQUIRES
--- NOTE | 2021-10-13 14:49 | ED_ITS ---
HPI - General Adult General Chief complaint: General Medical Stated complaint: DIZZY W/MULTI FALLS Time Seen by Provider: 10/13/21 14:47 Source: patient and EMS Mode of arrival: EMS Limitations: no limitations History of Present Illness HPI narrative: 55 y/o with history of seizure disorder, HTN, anxiety/depression, multiple sclerosis, HTN, gastroparesis, LUISA who presents to the ER via EMS with worsening left knee pain s/p fall 3 days ago as well as dizziness and nausea. She reports shopping for mattresses when she was laying on a bed and suddenly felt dizzy. She sat up and fell forward and hit her head on a dress the store had on display. She did not lose consciousness. She has been having worsening left knee pain since. She follows with [facility] and is due for a knee replacement in that knee per her report. She reports since the initial fall she has felt unwell with dizziness, light sensitivity, nausea and decreased PO intake. She says she is taking Tylenol 3-4 times per day for the knee pain with no relief. Her gait has felt unsteady and she has a lot of pain in the knee when she tries to ambulate. She denies any chest pain or dizziness. She states she has fallen 2-3 other times in the last couple of days due to difficulty ambulating and dizziness. She denies any history of recent seizures and she says she was taken off of keppra a while ago because it was making her lose her hair. She is not on any seizure meds at this time. She denies and focal weakness, numbness or tingling. She reports generalized weakness and not feeling right. MD complaint: left knee pain, dizziness s/p multiple falls Onset (ago): day(s) (4) Location: left and lower extremity Severity: severe Severity scale (1-10): 10 Quality: stabbing Pain Consistency: constant Relieving factors: immobilization Exacerbating factors: movement Associated symptoms: headaches, loss of appetite, malaise and nausea/vomiting Treatments prior to arrival: none Related Data Home Medications Medication Instructions Recorded Confirmed Lactobacillus acidophilus 20 1 cap PO DAILY 02/25/20 08/05/20 billion cell capsule (Florajen Acidophilus) alprazolam 1 mg tablet 1 mg PO QID 02/25/20 08/05/20 carisoprodol 350 mg tablet 1 tab PO TID PRN 02/25/20 08/05/20 citalopram 40 mg tablet 1 tab PO QAM 02/25/20 08/05/20 fluticasone 250 mcg-salmeterol 50 1 puff PO BID 02/25/20 08/05/20 mcg/dose blistr powdr for inhalation (Wixela Inhub) fluticasone propionate 50 INTRANASAL 02/25/20 08/05/20 mcg/actuation nasal spray,suspension insulin glargine 100 unit/mL (3 40 unit SUBCUT BEDTIME 02/25/20 08/05/20 mL) subcutaneous pen (Lantus Solostar U-100 Insulin) ipratropium 0.5 mg-albuterol 3 mg 1 vial INHALATION TID 02/25/20 08/05/20 (2.5 mg base)/3 mL nebulization soln ipratropium bromide 21 mcg (0.03 2 spray INTRANASAL BID 02/25/20 08/05/20 %) nasal spray lisinopril 20 0.5 tab PO 02/25/20 08/05/20 mg-hydrochlorothiazide 25 mg tablet mirtazapine 30 mg tablet 1 tab PO BEDTIME 02/25/20 08/05/20 prazosin 1 mg capsule 1 - 3 cap PO BEDTIME PRN 02/25/20 08/05/20 dulaglutide 0.75 mg/0.5 mL 0.75 mg SUBCUT QWEEK 08/05/20 08/05/20 subcutaneous pen injector estradiol 1 g VAGINAL 3XW 08/05/20 08/05/20 insulin aspart U-100 100 unit/mL unit SUBCUT 08/05/20 08/05/20 (3 mL) subcutaneous pen pen needle, diabetic 29 gauge x #100 ea 08/05/20 08/05/20 1/2 dulaglutide 1.5 mg/0.5 mL 1.5 mg SUBCUT QWEEK 08/17/21 subcutaneous [facility] ergocalciferol (vitamin D2) 1,250 1,250 mcg PO QWEEK 08/17/21 mcg (50,000 unit) capsule escitalopram oxalate 10 mg tablet 10 mg PO DAILY 08/17/21 fluticasone 100 mcg-salmeterol 50 1 ea PO BID 08/17/21 mcg/dose blistr powdr for inhalation (Partha Hernandez) Previous Rx's Medication Instructions Recorded oxycodone 5 mg tablet 5 mg PO Q8H PRN #10 tab 02/29/20 oxycodone 5 mg tablet 5 mg PO BID PRN #10 tab 03/03/20 ondansetron HCl 4 mg tablet 4 mg PO Q6H PRN #10 tab 04/25/20 (Zofran) tramadol 50 mg tablet 50 mg PO BID PRN #10 tab 04/25/20 hydrocortisone 2.5 % topical cream 1 appl NH BID-QID PRN #30 g 08/05/20 with perineal applicator (Procto-Med HC) lansoprazole 30 mg capsule,delayed 30 mg PO BID 30 Days #60 cap 03/04/21 release ondansetron 4 mg disintegrating 4 mg PO Q8H #60 tab 08/17/21 tablet rifaximin 550 mg tablet 550 mg PO TID 14 Days #42 tab 08/17/21 simethicone 125 mg chewable tablet 125 mg PO TID PRN #90 tab 09/28/21 Allergies Allergy/AdvReac Type Severity Reaction Status Date / Time shellfish derived Allergy Intermediate ANAPHYLAXIS Verified 08/17/21 12:04 [SHELLFISH DERIVED] aspirin [ASPIRIN] Allergy Unknown ANAPHYLAXIS Verified 08/17/21 12:04 gabapentin [GABAPENTIN] Allergy Unknown ANAPHYLAXIS Verified 08/17/21 12:04 ketorolac [From TORADOL] Allergy Unknown Hives Verified 08/17/21 12:04 Penicillins [PENICILLINS] Allergy Unknown HIVES Verified 08/17/21 12:04 Review of Systems Review of Systems: Constitutional: No Fever, No Chills ENT/Mouth: No sore throat, No Rhinorrhea, No Swallowing Difficulty Eyes: No Eye Pain, No Swelling, No Redness Cardiovascular: No Chest Pain, No SOB, No Orthopnea, No Edema Respiratory: No Cough, No Sputum, No Wheezing, No dyspnea Gastrointestinal: + Nausea, No Vomiting, No Diarrhea, No abdominal Pain, No Hematochezia, No Melena Genitourinary: No Dysuria, No Urinary Frequency, No Hematuria, +Difficulty urinating Musculoskeletal: + joint pain, + Myalgias Skin: No Skin Lesions, No rash Neuro: + Weakness, No Numbness, + Dizziness, + Headache Psych: + Anxiety/Panic, + Depression Heme/Lymph: No Bruising, No Lymphadenopathy Endocrine: No Polyuria, No Polydipsia PMFSH Past Medical History Medical History (Updated 10/13/21 @ 17:39 by NICOLE Oh) Anxiety Cervical cancer Diabetes Diarrhea Fracture of fifth metatarsal bone Hx of abdominal pain Kidney stones Pseudoseizures Stomach cancer TIA (transient ischemic attack) Surgical History (Updated 08/17/21 @ 12:04 by JACKELIN Gonsales) History of esophagogastroduodenoscopy (EGD) History of neck surgery Hx of arthroscopy of knee Hx of cholecystectomy Hx of colonoscopy Hx of knee surgery Hx of sinus surgery Hx of ventral hernia repair Total knee replacement status Family History Family History Mother Cancer Brother Cancer Stomach problems Acid reflux Social History Social History Household Members: Spouse Alcohol intake: never Patient Tobacco Use Status: Never used Tobacco Advance Directives: No Advance Directives Information Provided: No Physical Exam ED Vital Signs: Vital Signs - 24 hr 10/13/21 14:32 Temperature 98.4 F Pulse Rate 90 Respiratory Rate 17 Blood Pressure 140/91 H Pulse Oximetry 97 BMI result Body Mass Index 36.0 Appearance: Alert. Oriented X3. No acute distress. Eyes: Pupils equal, round and reactive to light. ENT: Pharynx normal. Neck: Normal inspection. Neck supple. No midline tenderness. CVS: Normal heart rate and rhythm. Pulses normal. Respiratory: No respiratory distress. Breath sounds normal. Abdomen: Obese Soft and nontender. +BS x4 Skin: Skin warm and dry. Normal skin color. Normal skin turgor. No rashes. Extremities: Normal inspection of the left knee. No erythema or swelling. No warmth. Exquisite tenderness to the entire knee joint with limited ROM. unable to assess joint laxity due to pain. No lower extremity edema. Pelvis is stable. No hip tenderness. Neuro: Oriented X 3. No motor deficit. No sensory deficit. CN II-XII intact. Nonfocal. Normal speech. Course Course Course Narrative: 55 yo female with history of seizures, DM2, HTN, depression, gastroparesis, anxiety, untreated multiple sclerosis who presents to the ER from home via EMS with severe left knee pain and several falls at home. She reports the falls are due to the severe pain in the knee. She has been eating less due to the pain and due to nausea. She is due for a knee replacement in 1 month at [facility]. AAO x3 and nonfocal on arrival. She reports pain in the knee is 10/10. No evidence of infection. Will get XR given recent trauma. Will get EKG, labs and CT head/neck as well. Reevaluation(s) Reevaluation #1: WBC 18.7 without left shift. UA is positive for infection. She reports a history of UTI in the past requiring IV antibiotics. She reports pelvic pain and difficultly voiding due to pain. Given her recurrent falls, generalized weakness, severe pain will plan for admisison for IV abx and treatment of her pain. Medical Decision Making Lab Data Result diagrams: 10/13/21 15:28 10/13/21 15:28 Labs: Lab Results 10/13/21 10/13/21 10/13/21 Range/Units 15:28 15:28 15:28 WBC 18.7 H (4.8-10.8) X10*3/uL RBC 5.23 (4.20-5.50) X10*6/uL Hgb 14.9 (12.0-16.0) g/dl Hct 45.7 (37.0-47.0) % MCV 87.4 (80.0-98.0) fL MCH 28.5 (27.0-33.0) pg MCHC 32.6 (31.0-35.0) g/dl RDW 13.3 (11.0-16.0) % Plt Count 437 H (160-400) X10*3/uL MPV 9.3 L (9.4-12.3) fL Immature Gran % (Auto) 0.6 H (0.0-0.4) % Neut % (Auto) 64.3 (45-73) % Lymph % (Auto) 27.8 (20-40) % Page % (Auto) 6.2 (2-11) % Eos % (Auto) 0.5 (0-4) % Baso % (Auto) 0.6 (0-2) % Lymph # (Auto) 5.2 H (1.2-4.9) X10*3/uL Page # (Auto) 1.2 (0.1-1.2) X10*3/uL Eos # (Auto) 0.1 (0.0-0.4) X10*3/uL Baso # (Auto) 0.1 (0.0-0.2) X10*3/uL Abs Immat Gran (auto) 0.12 H (0.00-0.03) X10*3/uL Absolute Neuts (auto) 12.0 H (2.0-8.3) x10*3/uL Absolute Nucleated RBC 0.000 (0.0-0.012) X10*3/uL Nucleated RBC % (auto) 0.0 (0.0-0.2) /100WBC Smear Tech's Comments VERIFIED Sodium 140 (135-145) mmol/L Potassium 3.9 D (3.3-5.1) mmol/L Chloride 100 (96-108) mmol/L Carbon Dioxide 31 H (22-29) mmol/L Anion Gap 13 (12-20) BUN 16 (9-16) mg/dL Creatinine 0.85 (0.5-1.4) mg/dL Estim Creat Clear Calc 70.9 Estimated GFR > 60 Random Glucose 77 (60-115) mg/dL Calcium 9.1 (8.4-10.2) mg/dL Magnesium 2.4 (1.6-2.6) mg/dL Total Bilirubin 0.4 (0.0-1.0) mg/dL Direct Bilirubin 0.2 (0.0-0.5) mg/dL AST 24 (5-31) U/L ALT 34 H (0-31) U/L Alkaline Phosphatase 95 (39-117) U/L Total Creatine Kinase 63 D (26-140) U/L Total Protein 7.2 (6.5-8.0) g/dL Albumin 4.2 (3.5-5.0) g/dL Urine Color Urine Appearance Urine pH (5.0-8.0) Ur Specific [place] (1.005-1.025) Urine Protein (NEG-TRACE) MG/DL Urine Glucose (UA) (NEG) MG/DL Urine Ketones (NEG) MG/DL Urine Blood (NEG) Urine Nitrite (NEG) Ur Leukocyte Esterase (NEG) Urine RBC (0) /HPF Urine WBC (0-4) /HPF Ur Squamous Epith Cells /LPF Urine Bacteria /LPF Urine Opiates Screen (Not Detect) Urine Fentanyl Screen (Not Detect) Acetaminophen < 1 (<30) mcg/mL Ur Barbiturates Screen (Not Detect) Ur Phencyclidine Scrn (Not Detect) Ur Amphetamines Screen (Not Detect) U Benzodiazepines Scrn (Not Detect) Urine Cocaine Screen (Not Detect) U Marijuana (THC) Screen (Not Detect) 10/13/21 10/13/21 Range/Units 16:39 16:39 WBC (4.8-10.8) X10*3/uL RBC (4.20-5.50) X10*6/uL Hgb (12.0-16.0) g/dl Hct (37.0-47.0) % MCV (80.0-98.0) fL MCH (27.0-33.0) pg MCHC (31.0-35.0) g/dl RDW (11.0-16.0) % Plt Count (160-400) X10*3/uL MPV (9.4-12.3) fL Immature Gran % (Auto) (0.0-0.4) % Neut % (Auto) (45-73) % Lymph % (Auto) (20-40) % Page % (Auto) (2-11) % Eos % (Auto) (0-4) % Baso % (Auto) (0-2) % Lymph # (Auto) (1.2-4.9) X10*3/uL Page # (Auto) (0.1-1.2) X10*3/uL Eos # (Auto) (0.0-0.4) X10*3/uL Baso # (Auto) (0.0-0.2) X10*3/uL Abs Immat Gran (auto) (0.00-0.03) X10*3/uL Absolute Neuts (auto) (2.0-8.3) x10*3/uL Absolute Nucleated RBC (0.0-0.012) X10*3/uL Nucleated RBC % (auto) (0.0-0.2) /100WBC Smear Tech's Comments Sodium (135-145) mmol/L Potassium (3.3-5.1) mmol/L Chloride (96-108) mmol/L Carbon Dioxide (22-29) mmol/L Anion Gap (12-20) BUN (9-16) mg/dL Creatinine (0.5-1.4) mg/dL Estim Creat Clear Calc Estimated GFR Random Glucose (60-115) mg/dL Calcium (8.4-10.2) mg/dL Magnesium (1.6-2.6) mg/dL Total Bilirubin (0.0-1.0) mg/dL Direct Bilirubin (0.0-0.5) mg/dL AST (5-31) U/L ALT (0-31) U/L Alkaline Phosphatase (39-117) U/L Total Creatine Kinase (26-140) U/L Total Protein (6.5-8.0) g/dL Albumin (3.5-5.0) g/dL Urine Color YELLOW Urine Appearance CLEAR Urine pH 5.5 (5.0-8.0) Ur Specific [place] <= 1.005 (1.005-1.025) Urine Protein NEG (NEG-TRACE) MG/DL Urine Glucose (UA) NEG (NEG) MG/DL Urine Ketones NEG (NEG) MG/DL Urine Blood NEG (NEG) Urine Nitrite NEG (NEG) Ur Leukocyte Esterase 1+ H (NEG) Urine RBC 0 (0) /HPF Urine WBC 10-14 H (0-4) /HPF Ur Squamous Epith Cells 1+ /LPF Urine Bacteria 4+ /LPF Urine Opiates Screen Not Detected (Not Detect) Urine Fentanyl Screen Not Detected (Not Detect) Acetaminophen (<30) mcg/mL Ur Barbiturates Screen Not Detected (Not Detect) Ur Phencyclidine Scrn Not Detected (Not Detect) Ur Amphetamines Screen Not Detected (Not Detect) U Benzodiazepines Scrn POSITIVE H (Not Detect) Urine Cocaine Screen Not Detected (Not Detect) U Marijuana (THC) Screen POSITIVE H (Not Detect) ECG Data Attestation: I personally reviewed and interpreted this ECG as follows: Prior ECG tracings: available for review Interpretation: normal sinus rhythm, HR 78 BPM, normal NH interval, no ST segment elevations or depressions Critical Care Time Critical Care Time Critical Care Time: No Discharge Plan Discharge Clinical Impression: Acute UTI, Multiple falls, Dizziness, Knee pain, left Patient Disposition: Admitted As Inpatient Prescriptions: No Action lansoprazole 30 mg capsule,delayed release(DR/EC) 30 mg PO BID 30 Days Qty: 60 3RF ondansetron 4 mg tablet,disintegrating 4 mg PO Q8H Qty: 60 1RF rifaximin 550 mg tablet 550 mg PO TID 14 Days Qty: 42 0RF simethicone 125 mg tablet,chewable 125 mg PO TID PRN (Reason: for abdominal pain) Qty: 90 2RF carisoprodol 350 mg tablet 1 tab PO TID PRN (Reason: Spasms) 0RF citalopram 40 mg tablet 1 tab PO QAM 0RF lisinopril-hydrochlorothiazide 20-25 mg tablet 0.5 tab PO 0RF fluticasone propion-salmeterol [Wixela Inhub] 250-50 mcg/dose blister with device 1 puff PO BID 0RF ipratropium-albuterol 0.5 mg-3 mg(2.5 mg base)/3 mL solution for nebulization 1 vial inhalation TID 0RF prazosin 1 mg capsule 1 - 3 cap PO BEDTIME PRN (Reason: nightmares) 0RF mirtazapine 30 mg tablet 1 tab PO BEDTIME 0RF fluticasone propionate 50 mcg/actuation spray,suspension intranasal 0RF ipratropium bromide 0.03 % spray,non-aerosol 2 spray intranasal BID 0RF Lantus Solostar U-100 Insulin 100 unit/mL (3 mL) insulin pen 40 unit subcut BEDTIME 0RF Florajen Acidophilus 460 mg (20 billion cell) capsule 1 cap PO DAILY 0RF alprazolam 1 mg Tablet 1 mg PO QID 0RF oxycodone 5 mg tablet 5 mg PO Q8H PRN (Reason: pain) Qty: 10 0RF oxycodone 5 mg tablet 5 mg PO BID PRN (Reason: pain) Qty: 10 0RF tramadol 50 mg tablet 50 mg PO BID PRN (Reason: pain) Qty: 10 0RF ondansetron HCl [Zofran] 4 mg tablet 4 mg PO Q6H PRN (Reason: nausea and vomiting) Qty: 10 0RF Trulicity 0.75 mg/0.5 mL pen injector 0.75 mg subcut QWEEK 0RF (DME) pen needle, diabetic 29 gauge x 1/2 needle See Rx Instructions ea .ROUTE .MEDSUPPLY Qty: 100 0RF Rx Instructions: As directed estradiol 0.01 % (0.1 mg/gram) cream 1 g vaginal 3XW 0RF insulin aspart U-100 100 unit/mL (3 mL) insulin pen subcut 0RF hydrocortisone [Procto-Med HC] 2.5 % cream with perineal applicator 1 appl NH BID-QID PRN (Reason: hemorrhoids) Qty: 30 0RF ergocalciferol (vitamin D2) 1,250 mcg (50,000 unit) capsule 1,250 mcg PO QWEEK 0RF fluticasone propion-salmeterol [Wixela Inhub] 100-50 mcg/dose blister with device 1 ea PO BID 0RF Trulicity 1.5 mg/0.5 mL pen injector 1.5 mg subcut QWEEK 0RF escitalopram oxalate 10 mg tablet 10 mg PO DAILY 0RF
[2021-10-13 15:35] LABS: Basophils Absolute Auto 0.1 X10*3/uL (0.0-0.2); Basophils Percent Auto 0.6 % (0-2); Eosinophils Absolute Auto 0.1 X10*3/uL (0.0-0.4); Eosinophils Percent Auto 0.5 % (0-4); Hematocrit 45.7 % (37.0-47.0); Hemoglobin 14.9 g/dl (12.0-16.0); Imm Gran Abs Auto 0.12 X10*3/uL (0.00-0.03); Imm Gran Pct Auto 0.6 % (0.0-0.4); Lymphocytes Absolute Auto 5.2 X10*3/uL (1.2-4.9); Lymphocytes Percent Auto 27.8 % (20-40); MANUAL DIFF FLAG SCAN; Mean Corpuscular HGB Conc 32.6 g/dl (31.0-35.0); Mean Corpuscular Hemoglobin 28.5 pg (27.0-33.0); Mean Corpuscular Volume 87.4 fL (80.0-98.0); Mean Platelet Volume 9.3 fL (9.4-12.3); Monocytes Absolute Auto 1.2 X10*3/uL (0.1-1.2); Monocytes Percent Auto 6.2 % (2-11); Neutrophils Percent Auto 64.3 % (45-73); Platelet Count 437 X10*3/uL (160-400); Red Blood Count 5.23 X10*6/uL (4.20-5.50); Red Cell Distribution Width 13.3 % (11.0-16.0); SCAN SMEAR FLAG 1; White Blood Count 18.7 X10*3/uL (4.8-10.8)
[2021-10-13 15:51] LABS: Acetaminophen LAB < 1 mcg/mL (<30); Alanine Aminotransferase 34 U/L (0-31); Albumin Level 4.2 g/dL (3.5-5.0); Alkaline Phosphatase 95 U/L (39-117); Anion Gap 13 (12-20); Aspartate Amino Transferase 24 U/L (5-31); Bilirubin Direct 0.2 mg/dL (0.0-0.5); Bilirubin Total 0.4 mg/dL (0.0-1.0); Blood Urea Nitrogen 16 mg/dL (9-16); Calcium 9.1 mg/dL (8.4-10.2); Carbon Dioxide 31 mmol/L (22-29); Chloride 100 mmol/L (96-108); Creatinine Clr Calc Pharmacy 70.9; Estimated Glomerular Filt Rate > 60; Glucose Random 77 mg/dL (60-115); Magnesium 2.4 mg/dL (1.6-2.6); Potassium 3.9 mmol/L (3.3-5.1); Sodium 140 mmol/L (135-145); Total Protein 7.2 g/dL (6.5-8.0)
[2021-10-13 16:09] LABS: SLIDE REVIEW VERIFIED
[2021-10-13] MEDS: Ondansetron ODT 4 MG TAB.RAPDIS TRANSLINGU (16:16)
[2021-10-13 16:46] LABS: Appearance Urine CLEAR; Color Urine YELLOW; Glucose Urine UA NEG (NEG); Leukocyte Esterase Urine 1+ (NEG); Nitrite Urine NEG (NEG); PH 5.5 (5.0-8.0); Specific Gravity - Urine <= 1.005 (1.005-1.025); UACC Culture Trigger YES; Urine Blood NEG (NEG); Urine Ketones NEG (NEG); Urine Protein NEG (NEG-TRACE)
[2021-10-13 16:51] LABS: Bacteria Urine 4+ /LPF; RBC Urine 0 /HPF (0); Squamous Epithelial Cell Urine 1+ /LPF
[2021-10-13 16:59] LABS: Amphetamine Screen Urine Not Detected (Not Detect); Barbiturates, Urine Not Detected (Not Detect); Benzodiazepines Screen Urine POSITIVE (Not Detect); Cannabinoid Screen Urine POSITIVE (Not Detect); Cocaine Screen Urine Not Detected (Not Detect); Fentanyl, urine Not Detected (Not Detect); Opiate Screen Urine Not Detected (Not Detect); Phencyclidine Screen Urine Not Detected (Not Detect)
[2021-10-13] MEDS: oxyCODONE HCl Immed Release 5 MG TABLET PO ×2 (17:14→21:42)
[2021-10-13 18:17] VITALS: RESP 17
[2021-10-13] MEDS: cefTRIAXone sodium 1 GM in 0.9 % Sodium Chloride 50 ML IV (18:17)
--- NOTE | 2021-10-13 18:17 | P.HPHOSP_ITS ---
History of Present Illness Date of Service: 10/13/21 Chief Complaint: Acute UTI 55 y/o with history of seizure disorder, HTN, anxiety/depression, multiple sclerosis, HTN, gastroparesis, LUISA who presents to the ER via EMS with worsening left knee pain s/p fall 3 days ago as well as dizziness and nausea. She states her gait has been unsteady since that time and has worsened over the past couple weeks. Also states she has not felt right and her sugars have been out of control. In the emergency room, workup significant for leukocytosis and active urine sediment. Review of Systems Review of Systems: Denies chest pain Denies shortness of breath Denies nausea vomiting diarrhea Denies fever chills Denies seizure activity PMFSH Medical History Anxiety Cervical cancer Diabetes Diarrhea Fracture of fifth metatarsal bone Hx of abdominal pain Kidney stones Pseudoseizures Stomach cancer TIA (transient ischemic attack) Family History Mother Cancer Brother Cancer Stomach problems Acid reflux Surgical History History of esophagogastroduodenoscopy (EGD) History of neck surgery Hx of arthroscopy of knee Hx of cholecystectomy Hx of colonoscopy Hx of knee surgery Hx of sinus surgery Hx of ventral hernia repair Total knee replacement status Social History Household Members: Spouse Alcohol intake: never Patient Tobacco Use Status: Never used Tobacco Advance Directives: No Advance Directives Information Provided: No Meds Allergies Allergy/AdvReac Type Severity Reaction Status Date / Time shellfish derived Allergy Intermediate ANAPHYLAXIS Verified 08/17/21 12:04 [SHELLFISH DERIVED] aspirin [ASPIRIN] Allergy Unknown ANAPHYLAXIS Verified 08/17/21 12:04 gabapentin [GABAPENTIN] Allergy Unknown ANAPHYLAXIS Verified 08/17/21 12:04 ketorolac [From TORADOL] Allergy Unknown Hives Verified 08/17/21 12:04 Penicillins [PENICILLINS] Allergy Unknown HIVES Verified 08/17/21 12:04 Active Medications: Current Medications Ceftriaxone Sodium 1 gm/ (Sodium Chloride) 50 mls @ 100 mls/hr IV Q24H MAIKEL Insulin Human Lispro (Insulin Lispro 100 Unit/Ml 3 Ml Vial) 0 unit SUBCUT QIDACHS [facility]; Protocol Pharmacy Consult (Consult Rx Perform Med Rec) 1 each MISCELLANE ONCE PRN PRN Reason: Consult order Pharmacy Consult (Consult Rx Perform Med Rec) 1 each MISCELLANE ONCE PRN PRN Reason: Consult order Sodium Chloride (0.9 % Sodium Chloride Flush 3 Ml Syringe) 3 [facility] Medications Medication Instructions Recorded Confirmed Last Taken Type alprazolam 1 mg tablet 1 mg PO QID 02/25/20 08/05/20 Unknown History carisoprodol 350 mg tablet 1 tab PO TID PRN 02/25/20 08/05/20 Unknown History insulin glargine 100 unit/mL (3 40 unit SUBCUT BEDTIME 02/25/20 08/05/20 Unknown History mL) subcutaneous pen (Lantus Solostar U-100 Insulin) mirtazapine 30 mg tablet 1 tab PO BEDTIME 02/25/20 08/05/20 Unknown History insulin aspart U-100 100 unit/mL unit SUBCUT 08/05/20 08/05/20 Unknown History (3 mL) subcutaneous pen pen needle, diabetic 29 gauge x #100 ea 08/05/20 08/05/20 Unknown History 1/2 dulaglutide 1.5 mg/0.5 mL 1.5 mg SUBCUT QWEEK 08/17/21 Unknown History subcutaneous pen injector (Trulicity) ergocalciferol (vitamin D2) 1,250 1,250 mcg PO QWEEK 08/17/21 Unknown History mcg (50,000 unit) capsule escitalopram oxalate 10 mg tablet 10 mg PO DAILY 08/17/21 Unknown History fluticasone 100 mcg-salmeterol 50 1 ea PO BID 08/17/21 Unknown History mcg/dose blistr powdr for inhalation (Wixela Inhub) ondansetron 4 mg disintegrating 4 mg PO Q8H PRN 10/13/21 10/13/21 Unknown History tablet Physical Exam Vital Signs and Narrative: Vital Signs: Last Vital Signs Temp 98.4 F 10/13/21 14:32 Pulse 90 10/13/21 14:32 Resp 17 10/13/21 14:32 BP 140/91 H 10/13/21 14:32 Pulse Ox 97 10/13/21 14:32 BMI result Body Mass Index 36.0 Const: Other: awake alert in no acute distress Resp: Other: clear to auscultation bilaterally no rales or wheezes Cardio: Other: no S4; positive S1-S2; no S3 murmurs rubs or gallops GI: Other: soft nontender nondistended normoactive bowel sounds x4 Neuro: Other: cranial nerves 2-12 grossly intact as tested. Motor is 5/5 in all extremities sensation is intact. Gait is not observed. Cognition appropriate Extrem: Other: no edema bilaterally Results Labs CBC and Chem 7: 10/13/21 15:28 10/13/21 15:28 Labs: Laboratory Results - last 24 hr 10/13/21 10/13/21 10/13/21 15:28 15:28 15:28 MCV 87.4 MCH 28.5 MCHC 32.6 RDW 13.3 Plt Count 437 H MPV 9.3 L Immature Gran % (Auto) 0.6 H Neut % (Auto) 64.3 Lymph % (Auto) 27.8 [place] % (Auto) 6.2 Eos % (Auto) 0.5 Baso % (Auto) 0.6 Lymph # (Auto) 5.2 H [place] # (Auto) 1.2 Eos # (Auto) 0.1 Baso # (Auto) 0.1 Abs Immat Gran (auto) 0.12 H Absolute Neuts (auto) 12.0 H Absolute Nucleated RBC 0.000 Nucleated RBC % (auto) 0.0 Smear Tech's Comments VERIFIED Anion Gap 13 Estim Creat Clear Calc 70.9 Estimated GFR > 60 Random Glucose 77 Calcium 9.1 Magnesium 2.4 Total Bilirubin 0.4 Direct Bilirubin 0.2 AST 24 ALT 34 H Alkaline Phosphatase 95 Total Creatine Kinase 63 D Total Protein 7.2 Albumin 4.2 Urine Color Urine Appearance Urine pH Ur Specific [place] Urine Protein Urine Glucose (UA) Urine Ketones Urine Blood Urine Nitrite Ur Leukocyte Esterase Urine RBC Urine WBC Ur Squamous Epith Cells Urine Bacteria Urine Opiates Screen Urine Fentanyl Screen Acetaminophen < 1 Ur Barbiturates Screen Ur Phencyclidine Scrn Ur Amphetamines Screen U Benzodiazepines Scrn Urine Cocaine Screen U Marijuana (THC) Screen 10/13/21 10/13/21 16:39 16:39 MCV MCH MCHC RDW Plt Count MPV Immature Gran % (Auto) Neut % (Auto) Lymph % (Auto) [place] % (Auto) Eos % (Auto) Baso % (Auto) Lymph # (Auto) [place] # (Auto) Eos # (Auto) Baso # (Auto) Abs Immat Gran (auto) Absolute Neuts (auto) Absolute Nucleated RBC Nucleated RBC % (auto) Smear Tech's Comments Anion Gap Estim Creat Clear Calc Estimated GFR Random Glucose Calcium Magnesium Total Bilirubin Direct Bilirubin AST ALT Alkaline Phosphatase Total Creatine Kinase Total Protein Albumin Urine Color YELLOW Urine Appearance CLEAR Urine pH 5.5 Ur Specific [place] <= 1.005 Urine Protein NEG Urine Glucose (UA) NEG Urine Ketones NEG Urine Blood NEG Urine Nitrite NEG Ur Leukocyte Esterase 1+ H Urine RBC 0 Urine WBC 10-14 H Ur Squamous Epith Cells 1+ Urine Bacteria 4+ Urine Opiates Screen Not Detected Urine Fentanyl Screen Not Detected Acetaminophen Ur Barbiturates Screen Not Detected Ur Phencyclidine Scrn Not Detected Ur Amphetamines Screen Not Detected U Benzodiazepines Scrn POSITIVE H Urine Cocaine Screen Not Detected U Marijuana (THC) Screen POSITIVE H Imaging Radiologist's Impressions: Impressions Knee X-Ray 10/13/21 15:13 IMPRESSION: Mild narrowing at the medial compartment. No fracture or malalignment. Cervical Spine CT 10/13/21 15:26 IMPRESSION: 1. No acute intracranial finding. 2. No acute fracture or malalignment of the cervical spine. Degenerative changes with similar appearance of fusion throughout. Head CT 10/13/21 15:26 IMPRESSION: 1. No acute intracranial finding. 2. No acute fracture or malalignment of the cervical spine. Degenerative changes with similar appearance of fusion throughout. Assessment and Plan (1) Acute UTI: Status: Acute (2) MS (multiple sclerosis): Status: Acute (3) Diabetes type 2, uncontrolled: Qualifiers: Coma presence: without coma Glycemic state: with hypoglycemia Qualified Code(s): E11.649 - Type 2 diabetes mellitus with hypoglycemia without coma Status: Acute (4) Hypertension: Status: Acute Plan 55 y/o with history of seizure disorder, HTN, anxiety/depression, multiple sclerosis, HTN, gastroparesis, LUISA who presents to the ER via EMS with worsening left knee pain s/p fall 3 days ago as well as dizziness and nausea. ER evaluation consistent with acute UTI. 1.Acute UTI -Ceftriaxone 1g q24h -urine/BCs pending 2.Multiple Sclerosis -will treat UTI -PT consult -no improvement in gait..treat as MS exacerbation 3.Diabetes -Continue Lantus at outpatient dosing.. adjust as indicated -lispro correctional scale -diabetic diet 4. Anxiety - continue outpatient therapies 5. Hypertension - acceptable control - continue outpatient therapies.... adjust as indicated Full Code sequentials will require 2 midnights going forward for treatment of UTI and question treatment with IV steroids for multiple sclerosis exacerbation if no response to treating UTI Quality Stroke Does the patient have a stroke diagnosis?: No VTE Prior VTE?: No VTE Risk Level:: Medical - moderate - high VTE Device Contraindication: Treatment Not Indicated VTE Drug Contraindication: N/A - Med Ordered
--- NOTE | 2021-10-13 18:19 | PHA.MEDREC ---
Pharmacy Consult ? Medication Reconciliation Pharmacy has completed the medication reconciliation. Pt states that she take Soma BID, last fill was on 10/07/21 for soma 350 mg daily at bedtime
[2021-10-13 19:24] LABS: Lactic Acid 1.1 mmol/L (0.5-2.0)
[2021-10-13 19:28] LABS: COVID-19 Test Negative (Negative); IDNOW Serial# 16C4AD1C
--- NOTE | 2021-10-13 20:18 | PC.NURSE ---
PT ASKING FOR PAIN MED. TIGER TEXTED DR GUTIERREZ ASKING FOR PAIN MED ORDER. WAITING RESPONSE.
--- NOTE | 2021-10-13 21:05 | MHC.CM.PN ---
IMM 10/13. HCP/ Jesús Ramsey ([phone]). Copy requested. Vax/boosted/Moderna. Uses rollator/DM testing supplies. Pt has MS. Pt has a UTI. Has [employer] services through [facility]-26 day hours/wk and 14 night hours/week. Has VNA nursing weekly through [facility]. Pt sees Dr. Lopez at [facility] and has an appointment for L knee replacement on November 13. Pt states her orthopedic Dr told her she will have PT after her surgery and then at home. Pt does not want STR at this time. Pt states she will speak with the physical therapist tomorrow about her surgeons suggestions. Pt is using a brace on that L knee. Enc patient to use her rollator for safety. States her will bring her rollator to the hospital tomorrow. D/C plan: home with existing services. will provide transportation home. CM to follow for d/c needs.
[2021-10-13 21:07] VITALS: BP 130/81; PULSE 75
[2021-10-13 21:08] VITALS: BP 156/99; PULSE 88
[2021-10-13 21:18] LABS: Glucose, Whole Blood 99 mg/dL (60-115)
--- NOTE | 2021-10-13 21:22 | PC.NURSE ---
REPORT GIVEN TO KAEL JERONIMO ON S3E ROOM [id number]
[2021-10-13] MEDS: carisoprodoL 350 MG TABLET PO (21:41)
[2021-10-13] MEDS: Insulin Glargine,Hum.rec.anlog 100 UNIT/ML 10 ML VIAL 50 UNIT SUBCUT (21:42)
[2021-10-13 21:55] VITALS: BP 139/86; PULSE 77; RESP 18; TEMP 36.3; O2SAT 97
[2021-10-13 22:19] VITALS: BMI 84.8
[2021-10-13] MEDS: rifAXIMin 550 MG TABLET PO (22:39)
[2021-10-13] MEDS: 0.9 % Sodium Chloride Flush 3 ML SYRINGE IVFLUSH (22:40)
[2021-10-13] MEDS: HYDROmorphone HCl 1 MG/ML SYRINGE 0.6 MG IVPUSH (22:40)
[2021-10-13] MEDS: Mirtazapine 30 MG TABLET PO (22:40)
[2021-10-13] MEDS: ALPRAZolam 0.5 MG TABLET 1 MG PO (22:40)
[2021-10-13 23:33] VITALS: BP 153/62; PULSE 82; RESP 18; TEMP 35.9; O2SAT 96
[2021-10-14] VITALS (11 sets, daily range): BP systolic 118–142; BP diastolic 65–89; PULSE 62–90; RESP 16–20; TEMP 35.9–36.8; O2SAT 93–95; BMI 38.5
[2021-10-14] MEDS: Ondansetron ODT 4 MG TAB.RAPDIS TRANSLINGU ×2 (02:09→15:45)
[2021-10-14] MEDS: oxyCODONE HCl Immed Release 5 MG TABLET PO (06:30)
[2021-10-14] MEDS: Omeprazole 20 MG CAPSULE.DR PO ×2 (06:30→17:22)
[2021-10-14 06:33] LABS: MANUAL DIFF FLAG NO
[2021-10-14 06:41] LABS: Basophils Absolute Auto 0.1 X10*3/uL (0.0-0.2); Basophils Percent Auto 0.4 % (0-2); Eosinophils Absolute Auto 0.1 X10*3/uL (0.0-0.4); Eosinophils Percent Auto 0.7 % (0-4); Hematocrit 46.5 % (37.0-47.0); Imm Gran Pct Auto 0.6 % (0.0-0.4); Lymphocytes Absolute Auto 4.3 X10*3/uL (1.2-4.9); Lymphocytes Percent Auto 25.4 % (20-40); Mean Corpuscular HGB Conc 32.3 g/dl (31.0-35.0); Mean Corpuscular Hemoglobin 28.8 pg (27.0-33.0); Mean Corpuscular Volume 89.3 fL (80.0-98.0); Mean Platelet Volume 9.7 fL (9.4-12.3); Monocytes Percent Auto 6.1 % (2-11); Neutrophils Absolute Auto 11.3 x10*3/uL (2.0-8.3); Neutrophils Percent Auto 66.8 % (45-73); Platelet Count 387 X10*3/uL (160-400); Red Blood Count 5.21 X10*6/uL (4.20-5.50); Red Cell Distribution Width 13.5 % (11.0-16.0); White Blood Count 16.9 X10*3/uL (4.8-10.8)
[2021-10-14 07:03] LABS: Alanine Aminotransferase 35 U/L (0-31); Albumin Level 4.2 g/dL (3.5-5.0); Alkaline Phosphatase 93 U/L (39-117); Anion Gap 15 (12-20); Aspartate Amino Transferase 29 U/L (5-31); Bilirubin Total 0.4 mg/dL (0.0-1.0); Blood Urea Nitrogen 16 mg/dL (9-16); Calcium 8.9 mg/dL (8.4-10.2); Carbon Dioxide 29 mmol/L (22-29); Chloride 100 mmol/L (96-108); Creatinine Clr Calc Pharmacy 129.9; Estimated Glomerular Filt Rate > 60; Glucose Fasting 69 mg/dL (60-99); Sodium 140 mmol/L (135-145); Total Protein 7.3 g/dL (6.5-8.0)
[2021-10-14 07:50] LABS: Glucose, Whole Blood 71 mg/dL (60-115)
[2021-10-14] MEDS: carisoprodoL 350 MG TABLET PO ×2 (08:34→20:10)
[2021-10-14] MEDS: Escitalopram Oxalate 10 MG TABLET PO (08:35)
[2021-10-14] MEDS: HYDROmorphone HCl 1 MG/ML SYRINGE IVPUSH ×2 (08:35→15:45)
[2021-10-14] MEDS: ALPRAZolam 0.5 MG TABLET 1 MG PO ×2 (08:35→12:55)
[2021-10-14] MEDS: rifAXIMin 550 MG TABLET PO ×3 (08:35→20:10)
[2021-10-14] MEDS: 0.9 % Sodium Chloride Flush 3 ML SYRINGE IVFLUSH ×2 (08:36→15:34)
--- NOTE | 2021-10-14 11:27 | P.CDIC_ITS ---
CDI Concurrent Query Documentation Clarification: PHYSICIAN'S DOCUMENTATION REQUEST Date of Query: 10/14/21 1128 Patient Name: Lu Ramsey Admit Date: 10/13/21 Dear Doctor, A review of the medical record indicates additional documentation may be needed. Please review below and update the documentation accordingly. Clinical Indicators: Risk Factors/Clinical Indicators/Treatments Nursing Height and Weight 10/13 - BMI 84.4 - Extreme obesity Class III H&P: BMI 36.0 If possible, please provide an associated diagnosis related to the abnormal BMI, such as: clarity of documentation: For a BMI >= 40: * Overweight * Obesity * Due to excess calories * Drug induced * Due to other cause * Severe or Morbid Obesity * With alveolar hypoventilation * Without alveolar hypoventilation Or: * BMI is not significant * Other (please specify) * Unable to determine Use of terms such as suspected, likely, concern for, or probable (associated with a specific diagnosis that is being evaluated, monitored, or treated as if it exists) are acceptable and can be coded in the inpatient setting, when documented at the time of discharge. Thank you, Ayleen Robison [facility], CDIS Extension: [phone] Please use your independent medical judgment in providing your response. THIS QUERY IS PART OF THE PERMANENT MEDICAL RECORD Provider Response: Other Other Diagnosis: BMI is not significant; weight entered incorrectly
--- NOTE | 2021-10-14 11:27 | MHC.CDI.CONC ---
CDI Concurrent Query Documentation Clarification: PHYSICIAN'S DOCUMENTATION REQUEST Date of Query: 10/14/21 1128 Patient Name: Lu Ramsey Admit Date: 10/13/21 Dear Doctor, A review of the medical record indicates additional documentation may be needed. Please review below and update the documentation accordingly. Clinical Indicators: Risk Factors/Clinical Indicators/Treatments Nursing Height and Weight /7 - BMI 84.4 - Extreme obesity Class III H&P: BMI 36.0 If possible, please provide an associated diagnosis related to the abnormal BMI, such as: clarity of documentation: For a BMI >= 40: Overweight Obesity Due to excess calories Drug induced Due to other cause Severe or Morbid Obesity With alveolar hypoventilation Without alveolar hypoventilation Or: BMI is not significant Other (please specify) Unable to determine Use of terms such as suspected, likely, concern for, or probable (associated with a specific diagnosis that is being evaluated, monitored, or treated as if it exists) are acceptable and can be coded in the inpatient setting, when documented at the time of discharge. Thank you, Ayleen Robison [facility], CDIS Extension: [phone] Please use your independent medical judgment in providing your response. THIS QUERY IS PART OF THE PERMANENT MEDICAL RECORD Provider Response: Other Other Diagnosis: BMI is not significant; weight entered incorrectly
[2021-10-14 11:34] LABS: Glucose, Whole Blood 138 mg/dL (60-115)
[2021-10-14] MEDS: oxyCODONE HCl Immed Release 5 MG TABLET 10 MG PO ×2 (12:54→20:11)
--- NOTE | 2021-10-14 13:56 | P.PNIM_ITS ---
Subjective Subjective Date of Service: 10/14/21 Interval History: no acute issues overnight; requiring straight catheterization q.6 hours along with some vague pelvic paresthesias Review of Systems denies chest pain Denies shortness of breath Denies nausea vomiting diarrhea Denies fever chills Physical Exam Vital Signs: Vital Signs: Last Vital Signs Temp 98.2 F 10/14/21 12:00 Pulse 81 10/14/21 12:00 Resp 18 10/14/21 12:00 BP 137/87 10/14/21 12:00 Pulse Ox 95 10/14/21 12:00 O2 Del Method 10/14/21 12:00 BMI result Body Mass Index 38.5 Const: Other: awake alert in no acute distress Resp: Other: clear to auscultation bilaterally no rales or wheezes Cardio: Other: no S4; positive S1-S2; no S3 murmurs rubs or gallops GI: Other: soft nontender nondistended normoactive bowel sounds x4 Neuro: Other: cranial nerves 2-12 grossly intact as tested. Motor is 5/5 in all extremities sensation is intact. Gait is not observed. Cognition appropriate Extrem: Other: no edema bilaterally Objective Data Active Medications Alprazolam (Alprazolam 0.5 Mg Tablet) 1 mg PO QID PRN PRN Reason: Anxiety Last Admin: 10/14/21 08:35 Dose: 1 mg Documented By: ALONDRA Carisoprodol (Carisoprodol 350 Mg Tablet) 350 mg PO BID [facility] Last Admin: 10/14/21 08:34 Dose: 350 mg Documented By: ALONDRA Escitalopram Oxalate (Escitalopram Oxalate 10 Mg Tablet) 10 mg PO DAILY [facility] Last Admin: 10/14/21 08:35 Dose: 10 mg Documented By: ALONDRA Hydromorphone HCl (Hydromorphone Hcl 1 Mg/Ml Syringe) 1 mg IVPUSH Q6H PRN; Protocol PRN Reason: Pain, Severe (Pain Scale 7-10) Last Admin: 10/14/21 08:35 Dose: 1 mg Documented By: ALONDRA Ceftriaxone Sodium 1 gm/ (Sodium Chloride) 50 mls @ 100 mls/hr IV Q24H [facility] Insulin Glargine (Insulin Glargine,Hum.Rec.Anlog 100 Unit/Ml 10 Ml Vial) 50 unit SUBCUT BEDTIME [facility] Last Admin: 10/13/21 21:42 Dose: 50 unit Documented By: ERMIAS Insulin Human Lispro (Insulin Lispro 100 Unit/Ml 3 Ml Vial) 0 unit SUBCUT QIDACHS [facility]; Protocol Last Admin: 10/14/21 11:52 Dose: Not Given Documented By: ALONDRA Non-Admin Reason: No Insulin Coverage Mirtazapine (Mirtazapine 30 Mg Tablet) 30 mg PO BEDTIME [facility] Last Admin: 10/13/21 22:40 Dose: 30 mg Documented By: LASHONDA Omeprazole (Omeprazole 20 Mg Capsule.Dr) 20 mg PO BID@0630,1630 [facility] Last Admin: 10/14/21 06:30 Dose: 20 mg Documented By: LASHONDA Ondansetron HCl (Ondansetron Odt 4 Mg Tab.Rapdis) 4 mg TRANSLINGU Q8H PRN PRN Reason: Nausea And Vomiting Last Admin: 10/14/21 02:09 Dose: 4 mg Documented By: LASHONDA Oxycodone HCl (Oxycodone Hcl Immed Release 5 Mg Tablet) 10 mg PO Q6H PRN PRN Reason: Pain, Moderate (Pain Scale 4-6 Last Admin: 10/14/21 12:54 Dose: 10 mg Documented By: ALONDRA Pharmacy Consult (Consult Rx Perform Med Rec) 1 each MISCELLANE ONCE PRN PRN Reason: Consult order Pharmacy Consult (Consult Rx Perform Med Rec) 1 each MISCELLANE ONCE PRN PRN Reason: Consult order Rifaximin (Rifaximin 550 Mg Tablet) 550 mg PO TID [facility] Last Admin: 10/14/21 08:35 Dose: 550 mg Documented By: ALONDRA Sodium Chloride (0.9 % Sodium Chloride Flush 3 Ml Syringe) 3 ml IVFLUSH QSHIFT [facility] Last Admin: 10/14/21 08:36 Dose: 3 ml Documented By: ALONDRA Labs CBC & Chem 7: 10/14/21 06:13 10/14/21 06:13 Labs: Laboratory Results - last 24 hr 10/13/21 10/13/21 10/13/21 15:28 15:28 15:28 MCV 87.4 MCH 28.5 MCHC 32.6 RDW 13.3 Plt Count 437 H MPV 9.3 L Immature Gran % (Auto) 0.6 H Neut % (Auto) 64.3 Lymph % (Auto) 27.8 [place] % (Auto) 6.2 Eos % (Auto) 0.5 Baso % (Auto) 0.6 Lymph # (Auto) 5.2 H [place] # (Auto) 1.2 Eos # (Auto) 0.1 Baso # (Auto) 0.1 Abs Immat Gran (auto) 0.12 H Absolute Neuts (auto) 12.0 H Absolute Nucleated RBC 0.000 Nucleated RBC % (auto) 0.0 Smear Tech's Comments VERIFIED Anion Gap 13 Estim Creat Clear Calc 70.9 Estimated GFR > 60 POC Glucose Random Glucose 77 Fasting Glucose Lactic Acid Calcium 9.1 Magnesium 2.4 Total Bilirubin 0.4 Direct Bilirubin 0.2 AST 24 ALT 34 H Alkaline Phosphatase 95 Total Creatine Kinase 63 D Total Protein 7.2 Albumin 4.2 Urine Color Urine Appearance Urine pH Ur Specific [place] Urine Protein Urine Glucose (UA) Urine Ketones Urine Blood Urine Nitrite Ur Leukocyte Esterase Urine RBC Urine WBC Ur Squamous Epith Cells Urine Bacteria Urine Opiates Screen Urine Fentanyl Screen Acetaminophen < 1 Ur Barbiturates Screen Ur Phencyclidine Scrn Ur Amphetamines Screen U Benzodiazepines Scrn Urine Cocaine Screen U Marijuana (THC) Screen COVID-19 (ARLENE) COVID-19 Clin Com 10/13/21 10/13/21 10/13/21 16:39 16:39 19:06 MCV MCH MCHC RDW Plt Count MPV Immature Gran % (Auto) Neut % (Auto) Lymph % (Auto) [place] % (Auto) Eos % (Auto) Baso % (Auto) Lymph # (Auto) [place] # (Auto) Eos # (Auto) Baso # (Auto) Abs Immat Gran (auto) Absolute Neuts (auto) Absolute Nucleated RBC Nucleated RBC % (auto) Smear Tech's Comments Anion Gap Estim Creat Clear Calc Estimated GFR POC Glucose Random Glucose Fasting Glucose Lactic Acid Calcium Magnesium Total Bilirubin Direct Bilirubin AST ALT Alkaline Phosphatase Total Creatine Kinase Total Protein Albumin Urine Color YELLOW Urine Appearance CLEAR Urine pH 5.5 Ur Specific [place] <= 1.005 Urine Protein NEG Urine Glucose (UA) NEG Urine Ketones NEG Urine Blood NEG Urine Nitrite NEG Ur Leukocyte Esterase 1+ H Urine RBC 0 Urine WBC 10-14 H Ur Squamous Epith Cells 1+ Urine Bacteria 4+ Urine Opiates Screen Not Detected Urine Fentanyl Screen Not Detected Acetaminophen Ur Barbiturates Screen Not Detected Ur Phencyclidine Scrn Not Detected Ur Amphetamines Screen Not Detected U Benzodiazepines Scrn POSITIVE H Urine Cocaine Screen Not Detected U Marijuana (THC) Screen POSITIVE H COVID-19 (ARLENE) Negative COVID-19 Clin Com See Note 10/13/21 10/13/21 10/14/21 19:07 21:06 06:13 MCV 89.3 MCH 28.8 MCHC 32.3 RDW 13.5 Plt Count 387 MPV 9.7 Immature Gran % (Auto) 0.6 H Neut % (Auto) 66.8 Lymph % (Auto) 25.4 [place] % (Auto) 6.1 Eos % (Auto) 0.7 Baso % (Auto) 0.4 Lymph # (Auto) 4.3 [place] # (Auto) 1.0 Eos # (Auto) 0.1 Baso # (Auto) 0.1 Abs Immat Gran (auto) 0.10 H Absolute Neuts (auto) 11.3 H Absolute Nucleated RBC 0.000 Nucleated RBC % (auto) 0.0 Smear Tech's Comments Anion Gap Estim Creat Clear Calc Estimated GFR POC Glucose 99 Random Glucose Fasting Glucose Lactic Acid 1.1 Calcium Magnesium Total Bilirubin Direct Bilirubin AST ALT Alkaline Phosphatase Total Creatine Kinase Total Protein Albumin Urine Color Urine Appearance Urine pH Ur Specific [place] Urine Protein Urine Glucose (UA) Urine Ketones Urine Blood Urine Nitrite Ur Leukocyte Esterase Urine RBC Urine WBC Ur Squamous Epith Cells Urine Bacteria Urine Opiates Screen Urine Fentanyl Screen Acetaminophen Ur Barbiturates Screen Ur Phencyclidine Scrn Ur Amphetamines Screen U Benzodiazepines Scrn Urine Cocaine Screen U Marijuana (THC) Screen COVID-19 (ARLENE) COVID-19 Clin Com 10/14/21 10/14/21 10/14/21 06:13 07:40 11:27 MCV MCH MCHC RDW Plt Count MPV Immature Gran % (Auto) Neut % (Auto) Lymph % (Auto) [place] % (Auto) Eos % (Auto) Baso % (Auto) Lymph # (Auto) [place] # (Auto) Eos # (Auto) Baso # (Auto) Abs Immat Gran (auto) Absolute Neuts (auto) Absolute Nucleated RBC Nucleated RBC % (auto) Smear Tech's Comments Anion Gap 15 Estim Creat Clear Calc 129.9 Estimated GFR > 60 POC Glucose 71 138 H Random Glucose Fasting Glucose 69 Lactic Acid Calcium 8.9 Magnesium Total Bilirubin 0.4 Direct Bilirubin AST 29 ALT 35 H Alkaline Phosphatase 93 Total Creatine Kinase Total Protein 7.3 Albumin 4.2 Urine Color Urine Appearance Urine pH Ur Specific [place] Urine Protein Urine Glucose (UA) Urine Ketones Urine Blood Urine Nitrite Ur Leukocyte Esterase Urine RBC Urine WBC Ur Squamous Epith Cells Urine Bacteria Urine Opiates Screen Urine Fentanyl Screen Acetaminophen Ur Barbiturates Screen Ur Phencyclidine Scrn Ur Amphetamines Screen U Benzodiazepines Scrn Urine Cocaine Screen U Marijuana (THC) Screen COVID-19 (ARLENE) COVID-19 Clin Com Microbiology Microbiology Results: Microbiology 10/13/21 16:47 Urine Culture - Preliminary Urine clean catch - Urine de leon top Gram negative steven Assessment and Plan (1) Acute UTI: Status: Acute (2) MS (multiple sclerosis): Status: Acute (3) Diabetes type 2, uncontrolled: Status: Acute (4) Anxiety: Status: Acute (5) Hypertension: Status: Acute Plan 55 y/o with history of seizure disorder, HTN, anxiety/depression, multiple sclerosis, HTN, gastroparesis, LUISA who presents to the ER via EMS with worsening left knee pain s/p fall 3 days ago as well as dizziness and nausea. ER evaluat ion consistent with acute UTI. 1.Acute UTI -Ceftriaxone 1g q24h -urine/BCs pending( preliminary greater than 100K Gram-negative rods ) 2.Multiple Sclerosis -will treat UTI -PT consult -no improvement in gait..treat as MS exacerbation - neurology consult - appreciate PT consult; will do lumbar MRI to rule out compressive neuropathy 3.Diabetes -Continue Lantus at outpatient dosing.. adjust as indicated -lispro correctional scale -diabetic diet 4. Anxiety - continue outpatient therapies 5. Hypertension - acceptable control - continue outpatient therapies.... adjust as indicated Full Code sequentials requires ongoing hospitalization for IV antibiotics pending urine culture and neurological consult question MS exacerbation Quality Stroke Does the patient have a stroke diagnosis?: No VTE Prior VTE?: No VTE Risk Level:: Medical - moderate - high VTE Device Contraindication: Treatment Not Indicated VTE Drug Contraindication: N/A - Med Ordered
[2021-10-14 15:30] LABS: Glucose, Whole Blood 105 mg/dL (60-115)
--- NOTE | 2021-10-14 15:50 | PC.NURSE ---
Patient with feeling of bladder fullness. Bladder scanned for 619cc. Straight cathed for 700cc at 0930. DTV @ 1530. Patient down for MRI at 1415.
[2021-10-14] MEDS: cefTRIAXone sodium 1 GM in 0.9 % Sodium Chloride 50 ML IV (17:23)
[2021-10-14 20:07] LABS: Glucose, Whole Blood 125 mg/dL (60-115)
[2021-10-14] MEDS: Insulin Glargine,Hum.rec.anlog 100 UNIT/ML 10 ML VIAL 50 UNIT SUBCUT (20:09)
[2021-10-14] MEDS: Mirtazapine 30 MG TABLET PO (20:10)
[2021-10-15] VITALS (7 sets, daily range): BP systolic 119–153; BP diastolic 61–74; PULSE 78–90; RESP 16–18; TEMP 36–36.7; O2SAT 92–98
[2021-10-15] MEDS: 0.9 % Sodium Chloride Flush 3 ML SYRINGE IVFLUSH ×3 (00:15→16:41)
[2021-10-15] MEDS: Ondansetron ODT 4 MG TAB.RAPDIS TRANSLINGU (00:31)
[2021-10-15] MEDS: oxyCODONE HCl Immed Release 5 MG TABLET 10 MG PO ×4 (03:05→18:54)
[2021-10-15] MEDS: Omeprazole 20 MG CAPSULE.DR PO ×2 (06:16→16:41)
[2021-10-15 06:21] LABS: MANUAL DIFF FLAG NO
[2021-10-15 06:28] LABS: Basophils Percent Auto 0.3 % (0-2); Eosinophils Absolute Auto 0.2 X10*3/uL (0.0-0.4); Eosinophils Percent Auto 1.3 % (0-4); Hematocrit 43.6 % (37.0-47.0); Imm Gran Abs Auto 0.07 X10*3/uL (0.00-0.03); Imm Gran Pct Auto 0.5 % (0.0-0.4); Lymphocytes Absolute Auto 3.6 X10*3/uL (1.2-4.9); Lymphocytes Percent Auto 26.6 % (20-40); Mean Corpuscular HGB Conc 32.1 g/dl (31.0-35.0); Mean Corpuscular Hemoglobin 28.6 pg (27.0-33.0); Mean Platelet Volume 9.5 fL (9.4-12.3); Monocytes Absolute Auto 0.8 X10*3/uL (0.1-1.2); Neutrophils Absolute Auto 8.8 x10*3/uL (2.0-8.3); Neutrophils Percent Auto 65.3 % (45-73); Platelet Count 334 X10*3/uL (160-400); Red Cell Distribution Width 13.5 % (11.0-16.0); White Blood Count 13.4 X10*3/uL (4.8-10.8)
[2021-10-15 06:56] LABS: Alanine Aminotransferase 31 U/L (0-31); Albumin Level 3.9 g/dL (3.5-5.0); Alkaline Phosphatase 95 U/L (39-117); Anion Gap 13 (12-20); Aspartate Amino Transferase 26 U/L (5-31); Bilirubin Total 0.4 mg/dL (0.0-1.0); Blood Urea Nitrogen 17 mg/dL (9-16); Calcium 8.6 mg/dL (8.4-10.2); Carbon Dioxide 28 mmol/L (22-29); Chloride 101 mmol/L (96-108); Creatinine Clr Calc Pharmacy 79.1; Estimated Glomerular Filt Rate > 60; Glucose Fasting 97 mg/dL (60-99); Potassium 4.8 mmol/L (3.3-5.1); Sodium 137 mmol/L (135-145); Total Protein 6.9 g/dL (6.5-8.0)
[2021-10-15 07:37] LABS: Glucose, Whole Blood 89 mg/dL (60-115)
[2021-10-15] MEDS: HYDROmorphone HCl 1 MG/ML SYRINGE IVPUSH ×4 (08:25→20:05)
[2021-10-15] MEDS: carisoprodoL 350 MG TABLET PO ×2 (08:25→20:05)
[2021-10-15] MEDS: rifAXIMin 550 MG TABLET PO ×3 (08:26→20:05)
[2021-10-15] MEDS: Escitalopram Oxalate 10 MG TABLET PO (08:26)
[2021-10-15] MEDS: ALPRAZolam 0.5 MG TABLET 1 MG PO ×3 (08:26→20:16)
--- NOTE | 2021-10-15 10:45 | PM.NEUROCN ---
History of Present Illness Data of Consult Service Date: 10/15/21 Primary Care Provider: Joshua Cardenas MD [facility] Reason for consult: ?MS 55 years old woman with complicated neuropsychiatric history. She used to see me and the last visit with me was in 2014. She wanted to see a different neurologist and switched her care. At that time she was pursuing a neurologist in [place]. As far as I am aware of, she had suffered from posttraumatic stress disorder after her in front of her, chronic migraine type of headaches, abnormal brain MRI with white matter signal abnormalities but diagnosis of multiple sclerosis was not made in my office, and seizure disorder. As far as seizure disorder was concerned, there was high suspicion of nonepileptic episodes as multiple trials of EEGs have not revealed any epileptic tendency, she had not responded to medicines, and kept on having or reportedly having seizure-like episodes. At this time she was complaining of numb feeling around her genital areas and stating that her mind was not working well. Review of Systems Review of Systems: She had recently fallen. She also suffered from knee arthritis and apparently was a candidate for knee replacement. [facility] Past Medical History Medical History Anxiety Cervical cancer Diabetes Diarrhea Fracture of fifth metatarsal bone Hx of abdominal pain Kidney stones Pseudoseizures Stomach cancer TIA (transient ischemic attack) Family History Family History Mother Cancer Brother Cancer Stomach problems Acid reflux Surgical History Surgical History History of esophagogastroduodenoscopy (EGD) History of neck surgery Hx of arthroscopy of knee Hx of cholecystectomy Hx of colonoscopy Hx of knee surgery Hx of sinus surgery Hx of ventral hernia repair Total knee replacement status Social History Social History Household Members: Spouse Housing: House Do you presently have visiting nurse or other home services: Yes Alcohol intake: never Patient Tobacco Use Status: Never used Tobacco service: No Current occupational status: disabled Meds Allergies Allergy/AdvReac Type Severity Reaction Status Date / Time shellfish derived Allergy Intermediate ANAPHYLAXIS Verified 08/17/21 12:04 [SHELLFISH DERIVED] aspirin [ASPIRIN] Allergy Unknown ANAPHYLAXIS Verified 08/17/21 12:04 gabapentin [GABAPENTIN] Allergy Unknown ANAPHYLAXIS Verified 08/17/21 12:04 ketorolac [From TORADOL] Allergy Unknown Hives Verified 08/17/21 12:04 Penicillins [PENICILLINS] Allergy Unknown HIVES Verified 08/17/21 12:04 Active Medications: Current Medications Alprazolam (Alprazolam 0.5 Mg Tablet) 1 mg PO QID PRN PRN Reason: Anxiety Last Admin: 10/15/21 08:26 Dose: 1 mg Carisoprodol (Carisoprodol 350 Mg Tablet) 350 mg PO BID [facility] Last Admin: 10/15/21 08:25 Dose: 350 mg Escitalopram Oxalate (Escitalopram Oxalate 10 Mg Tablet) 10 mg PO DAILY [facility] Last Admin: 10/15/21 08:26 Dose: 10 mg Hydromorphone HCl (Hydromorphone Hcl 1 Mg/Ml Syringe) 1 mg IVPUSH Q6H PRN; Protocol PRN Reason: Pain, Severe (Pain Scale 7-10) Last Admin: 10/15/21 08:25 Dose: 1 mg Ceftriaxone Sodium 1 gm/ (Sodium Chloride) 50 mls @ 100 mls/hr IV Q24H [facility] Last Infusion: 10/14/21 18:04 Dose: Infused Insulin Glargine (Insulin Glargine,Hum.Rec.Anlog 100 Unit/Ml 10 Ml Vial) 50 unit SUBCUT BEDTIME [facility] Last Admin: 10/14/21 20:09 Dose: 50 unit Insulin Human Lispro (Insulin Lispro 100 Unit/Ml 3 Ml Vial) 0 unit SUBCUT QIDACHS [facility]; Protocol Last Admin: 10/15/21 07:51 Dose: Not Given Mirtazapine (Mirtazapine 30 Mg Tablet) 30 mg PO BEDTIME [facility] Last Admin: 10/14/21 20:10 Dose: 30 mg Omeprazole (Omeprazole 20 Mg Capsule.Dr) 20 mg PO BID@0630,1630 [facility] Last Admin: 10/15/21 06:16 Dose: 20 mg Ondansetron HCl (Ondansetron Odt 4 Mg Tab.Rapdis) 4 mg TRANSLINGU Q8H PRN PRN Reason: Nausea And Vomiting Last Admin: 10/15/21 00:31 Dose: 4 mg Oxycodone HCl (Oxycodone Hcl Immed Release 5 Mg Tablet) 10 mg PO Q6H PRN PRN Reason: Pain, Moderate (Pain Scale 4-6 Last Admin: 10/15/21 10:18 Dose: 10 mg Pharmacy Consult (Consult Rx Perform Med Rec) 1 each MISCELLANE ONCE PRN PRN Reason: Consult order Pharmacy Consult (Consult Rx Perform Med Rec) 1 each MISCELLANE ONCE PRN PRN Reason: Consult order Rifaximin (Rifaximin 550 Mg Tablet) 550 mg PO TID [facility] Last Admin: 10/15/21 08:26 Dose: 550 mg Sodium Chloride (0.9 % Sodium Chloride Flush 3 Ml Syringe) 3 ml IVFLUSH QSKYFT [facility] Last Admin: 10/15/21 08:32 Dose: 3 ml Home Medications Medication Instructions Recorded Confirmed Last Taken Type alprazolam 1 mg tablet 1 mg PO QID PRN Anxiety 02/25/20 10/13/21 10/12/21 History carisoprodol 350 mg tablet 1 tab PO BID 02/25/20 10/13/21 10/12/21 History insulin glargine 100 unit/mL (3 50 unit subcut BEDTIME 02/25/20 10/13/21 10/12/21 History mL) subcutaneous pen (Lantus Solostar U-100 Insulin) mirtazapine 30 mg tablet 1 tab PO BEDTIME 02/25/20 10/13/21 10/12/21 History insulin aspart U-100 100 unit/mL See Protocol subcut TIDAC 08/05/20 10/13/21 10/12/21 History (3 mL) subcutaneous pen pen needle, diabetic 29 gauge x #100 ea 08/05/20 08/05/20 Unknown History 1/2 dulaglutide 1.5 mg/0.5 mL 1.5 mg subcut FR 08/17/21 10/13/21 10/12/21 History subcutaneous pen injector (Trulicity) ergocalciferol (vitamin D2) 1,250 1,250 mcg PO MO 08/17/21 10/13/21 10/12/21 History mcg (50,000 unit) capsule escitalopram oxalate 10 mg tablet 10 mg PO DAILY 08/17/21 10/13/21 10/12/21 History fluticasone 100 mcg-salmeterol 50 1 inh PO BID 08/17/21 10/13/2110/12/22 History mcg/dose blistr powdr for inhalation (Wixela Inhub) ondansetron 4 mg disintegrating 4 mg PO Q8H PRN Nausea And Vomiting 10/13/21 10/13/21 Unknown History tablet simethicone 125 mg chewable tablet 125 mg PO TIDWMEAL 10/14/21 10/14/21 Unknown History Physical Exam Vital Signs: Vital Signs: Last Vital Signs Temp 97.0 F 10/15/21 07:42 Pulse 86 10/15/21 07:42 Resp 18 10/15/21 07:42 BP 153/74 H 10/15/21 07:42 Pulse Ox 94 10/15/21 07:42 O2 Del Method 10/15/21 07:42 BMI result Body Mass Index 38.5 Neuro: Other: She was alert and awake with normal spontaneity of speech fluency comprehension and at times dysphasic speech. She was following commands. There was no nystagmus. Visual qiu are full. Pupils were round reactive. Face was symmetrical. Anmfcc-ft-hvya testing was normal. Deep tendon reflexes were trace to absent with flexor plantars. She was significantly obese. Results Labs CBC & Chem 7: 10/15/21 06:01 10/15/21 06:01 Labs: Short CBC 10/15/21 Range/Units 06:01 WBC 13.4 H (4.8-10.8) X10*3/uL Hgb 14.0 (12.0-16.0) g/dl Hct 43.6 (37.0-47.0) % Plt Count 334 (160-400) X10*3/uL BMP 10/15/21 06:01 Sodium 137 Potassium 4.8 Chloride 101 Carbon Dioxide 28 BUN 17 H Creatinine 0.79 Calcium 8.6 Liver Function 10/15/21 Range/Units 06:01 Total Bilirubin 0.4 (0.0-1.0) mg/dL AST 26 (5-31) U/L ALT 31 (0-31) U/L Alkaline Phosphatase 95 (39-117) U/L Albumin 3.9 (3.5-5.0) g/dL Noncontrast head CT revealed vtuo-kv-uvkjoefr cortical mostly bifrontal atrophy. Microbiology Microbiology Results: Microbiology 10/13/21 16:47 Urine clean catch - Urine de leon top Urine Culture - Final Escherichia coli 10/13/21 19:06 Blood - Venous Blood Culture - Preliminary No growth after 24 hours. 10/13/21 19:06 Blood - Venous Blood Culture - Preliminary No growth after 24 hours. Assessment and Plan (1) Encephalopathy chronic: Status: Acute 55 years old woman with complicated underlying neuropsychiatric history including posttraumatic stress reaction after her was killed in front of her, chronic migraine type of headaches, abnormal brain MRIs revealing nonspecific white matter signal abnormalities of unknown etiology, suspicion of multiple sclerosis but at least the diagnosis was not confirmed when she was following pr until 2015, seizure-like episodes with high suspicion of nonepileptic spells because of negative EEGs and lack of response to treatment, chronic stress and depression, significant obesity and its multiple complications is complaining of numbness around genital areas. Her lumbosacral spine MRI revealed no significant abnormality. CT scan of brain revealed bifrontal atrophy, which suggested risk factor for behavioral disorder. Her neurological examination did not reveal any obvious upper motor neuron sign. Her previous brain MRIs in this institution have revealed multiple white matter signal abnormalities. As far as the question of multiple sclerosis is concerned, maybe noncontrast MRI of brain can help to comment on that. Because of new situation of saddle anaesthesia and loss of bladder control, spinal cord should also be looked at and for that I would include cervical and thoracic spine. These investigations might be important as there is suspicion of mostly behavioral disorder including psychosomatic disorder, which would require careful consideration of alternate pathologies. Procedures Date of Service Date of Service: 10/15/21
[2021-10-15 11:34] LABS: Glucose, Whole Blood 84 mg/dL (60-115)
[2021-10-15] MEDS: ondansetron HCL 4 MG/2 ML VIAL IVPUSH (13:32)
--- NOTE | 2021-10-15 14:46 | P.PNIM_ITS ---
Subjective Subjective Date of Service: 10/15/21 Review of Systems minimal changes overnight. Still requiring straight catheterization Physical Exam Vital Signs: Vital Signs: Last Vital Signs Temp 96.9 F 10/15/21 11:50 Pulse 90 10/15/21 11:50 Resp 17 10/15/21 11:50 BP 129/71 10/15/21 11:50 Pulse Ox 92 10/15/21 11:50 O2 Del Method 10/15/21 11:50 BMI result Body Mass Index 38.5 Const: Other: awake alert in no acute distress Resp: Other: clear to auscultation bilaterally no rales or wheezes Cardio: Other: no S4; positive S1-S2; no S3 murmurs rubs or gallops GI: Other: soft nontender nondistended normoactive bowel sounds x4 Neuro: Other: cranial nerves 2-12 grossly intact as tested. Motor is 5/5 in all extremities sensation is intact. Gait is not observed. Cognition appropriate Extrem: Other: no edema bilaterally Objective Data Active Medications Alprazolam (Alprazolam 0.5 Mg Tablet) 1 mg PO QID PRN PRN Reason: Anxiety Last Admin: 10/15/21 13:43 Dose: 1 mg Documented By: ALONDRA Carisoprodol (Carisoprodol 350 Mg Tablet) 350 mg PO BID [facility] Last Admin: 10/15/21 08:25 Dose: 350 mg Documented By: ALONDRA Escitalopram Oxalate (Escitalopram Oxalate 10 Mg Tablet) 10 mg PO DAILY [facility] Last Admin: 10/15/21 08:26 Dose: 10 mg Documented By: ALONDRA Hydromorphone HCl (Hydromorphone Hcl 1 Mg/Ml Syringe) 1 mg IVPUSH Q6H PRN; Protocol PRN Reason: Pain, Severe (Pain Scale 7-10) Last Admin: 10/15/21 13:43 Dose: 1 mg Documented By: ALONDRA Ceftriaxone Sodium 1 gm/ (Sodium Chloride) 50 mls @ 100 mls/hr IV Q24H [facility] Last Infusion: 10/14/21 18:04 Dose: 0 mls/hr Documented By: NA Insulin Glargine (Insulin Glargine,Hum.Rec.Anlog 100 Unit/Ml 10 Ml Vial) 50 unit SUBCUT BEDTIME [facility] Last Admin: 10/14/21 20:09 Dose: 50 unit Documented By: NA Insulin Human Lispro (Insulin Lispro 100 Unit/Ml 3 Ml Vial) 0 unit SUBCUT QIDAJAIRO [facility]; Protocol Last Admin: 10/15/21 11:44 Dose: Not Given Documented By: ALONDRA Non-Admin Reason: No Insulin Coverage Mirtazapine (Mirtazapine 30 Mg Tablet) 30 mg PO BEDTIME [facility] Last Admin: 10/14/21 20:10 Dose: 30 mg Documented By: NA Omeprazole (Omeprazole 20 Mg Capsule.) 20 mg PO BID@0630,1630 [facility] Last Admin: 10/15/21 06:16 Dose: 20 mg Documented By: CIELO Ondansetron HCl (Ondansetron Hcl 4 Mg/2 Ml Vial) 4 mg IVPUSH Q8H PRN PRN Reason: Nausea Last Admin: 10/15/21 13:32 Dose: 4 mg Documented By: ALONDRA Oxycodone HCl (Oxycodone Hcl Immed Release 5 Mg Tablet) 10 mg PO Q4H PRN PRN Reason: Pain, Moderate (Pain Scale 4-6 Pharmacy Consult (Consult Rx Perform Med Rec) 1 each MISCELLANE ONCE PRN PRN Reason: Consult order Pharmacy Consult (Consult Rx Perform Med Rec) 1 each MISCELLANE ONCE PRN PRN Reason: Consult order Rifaximin (Rifaximin 550 Mg Tablet) 550 mg PO TID [facility] Last Admin: 10/15/21 13:32 Dose: 550 mg Documented By: ALONDRA Sodium Chloride (0.9 % Sodium Chloride Flush 3 Ml Syringe) 3 ml IVFLUSH QSHIFT [facility] Last Admin: 10/15/21 08:32 Dose: 3 ml Documented By: ALONDRA Labs CBC & Chem 7: 10/15/21 06:01 10/15/21 06:01 Labs: Laboratory Results - last 24 hr 10/14/21 10/14/21 10/15/21 15:09 19:51 06:01 MCV 89.0 MCH 28.6 MCHC 32.1 RDW 13.5 Plt Count 334 MPV 9.5 Immature Gran % (Auto) 0.5 H Neut % (Auto) 65.3 Lymph % (Auto) 26.6 Greene % (Auto) 6.0 Eos % (Auto) 1.3 Baso % (Auto) 0.3 Lymph # (Auto) 3.6 Greene # (Auto) 0.8 Eos # (Auto) 0.2 Baso # (Auto) 0.0 Abs Immat Gran (auto) 0.07 H Absolute Neuts (auto) 8.8 H Absolute Nucleated RBC 0.000 Nucleated RBC % (auto) 0.0 Anion Gap Estim Creat Clear Calc Estimated GFR POC Glucose 105 125 H Fasting Glucose Calcium Total Bilirubin AST ALT Alkaline Phosphatase Total Protein Albumin 10/15/21 10/15/21 10/15/21 06:01 07:32 11:27 MCV MCH MCHC RDW Plt Count MPV Immature Gran % (Auto) Neut % (Auto) Lymph % (Auto) Greene % (Auto) Eos % (Auto) Baso % (Auto) Lymph # (Auto) Greene # (Auto) Eos # (Auto) Baso # (Auto) Abs Immat Gran (auto) Absolute Neuts (auto) Absolute Nucleated RBC Nucleated RBC % (auto) Anion Gap 13 Estim Creat Clear Calc 79.1 Estimated GFR > 60 POC Glucose 89 84 Fasting Glucose 97 Calcium 8.6 Total Bilirubin 0.4 AST 26 ALT 31 Alkaline Phosphatase 95 Total Protein 6.9 Albumin 3.9 Microbiology Microbiology Results: Microbiology 10/13/21 16:47 Urine Culture - Final Urine clean catch - Urine de leon top Escherichia coli 10/13/21 19:06 Blood Culture - Preliminary Blood - Venous No growth after 24 hours. 10/13/21 19:06 Blood Culture - Preliminary Blood - Venous No growth after 24 hours. Assessment and Plan (1) Acute UTI: Status: Acute (2) Diabetes type 2, uncontrolled: Status: Acute (3) Paresthesia: Status: Acute Plan 55 y/o with history of seizure disorder, HTN, anxiety/depression, multiple sclerosis, HTN, gastroparesis, LUISA who presents to the ER via EMS with worsening left knee pain s/p fall 3 days ago as well as dizziness and nausea. ER evaluation consistent with acute UTI. 1.Acute UTI -Ceftriaxone 1g q24h -urine E coli sensitive to ceftriaxone 2. Multiple Parasthesias - appreciate neuro l consult.... no documented history of multiple sclerosis - will MRI cervical and thoracic spine along with brain as recommended 3.Diabetes -Continue Lantus at outpatient dosing.. adjust as indicated -lispro correctional scale -diabetic diet 4. Anxiety - continue outpatient therapies 5. Hypertension - acceptable control - continue outpatient therapies.... adjust as indicated Full Code sequentials requires ongoing hospitalization for IV antibiotics pending urine culture and neurological consult question MS exacerbation Quality Stroke Does the patient have a stroke diagnosis?: No VTE Prior VTE?: No VTE Risk Level:: Medical - moderate - high VTE Device Contraindication: Treatment Not Indicated VTE Drug Contraindication: N/A - Med Ordered
[2021-10-15 15:48] LABS: Glucose, Whole Blood 147 mg/dL (60-115)
[2021-10-15] MEDS: cefTRIAXone sodium 1 GM in 0.9 % Sodium Chloride 50 ML IV (18:11)
[2021-10-15 19:12] LABS: Glucose, Whole Blood 173 mg/dL (60-115)
[2021-10-15] MEDS: Mirtazapine 30 MG TABLET PO (20:04)
[2021-10-15] MEDS: Insulin Glargine,Hum.rec.anlog 100 UNIT/ML 10 ML VIAL 50 UNIT SUBCUT (20:06)
[2021-10-15] MEDS: Insulin Lispro 100 UNIT/ML 3 ML VIAL SUBCUT (20:06)
--- NOTE | 2021-10-15 22:41 | PC.NURSE ---
Bladder scanned this shift for 366ml,str cath for 500 ml ,due to be scanned at 2330
[2021-10-16] VITALS (9 sets, daily range): BP systolic 99–133; BP diastolic 53–74; PULSE 75–100; RESP 16–20; TEMP 34.8–36.7; O2SAT 91–95
[2021-10-16] MEDS: oxyCODONE HCl Immed Release 5 MG TABLET 10 MG PO ×6 (00:10→23:02)
[2021-10-16] MEDS: 0.9 % Sodium Chloride Flush 3 ML SYRINGE IVFLUSH ×3 (00:13→17:37)
[2021-10-16] MEDS: HYDROmorphone HCl 1 MG/ML SYRINGE IVPUSH ×4 (02:00→20:06)
[2021-10-16] MEDS: ondansetron HCL 4 MG/2 ML VIAL IVPUSH ×2 (02:48→13:52)
[2021-10-16] MEDS: Omeprazole 20 MG CAPSULE.DR PO ×2 (05:31→17:37)
[2021-10-16 06:15] LABS: MANUAL DIFF FLAG NO
[2021-10-16 06:19] LABS: Basophils Absolute Auto 0.1 X10*3/uL (0.0-0.2); Basophils Percent Auto 0.4 % (0-2); Eosinophils Absolute Auto 0.1 X10*3/uL (0.0-0.4); Eosinophils Percent Auto 1.1 % (0-4); Hematocrit 43.2 % (37.0-47.0); Hemoglobin 13.8 g/dl (12.0-16.0); Imm Gran Abs Auto 0.05 X10*3/uL (0.00-0.03); Imm Gran Pct Auto 0.4 % (0.0-0.4); Lymphocytes Absolute Auto 3.5 X10*3/uL (1.2-4.9); Lymphocytes Percent Auto 29.7 % (20-40); Mean Corpuscular HGB Conc 31.9 g/dl (31.0-35.0); Mean Corpuscular Hemoglobin 28.3 pg (27.0-33.0); Mean Corpuscular Volume 88.7 fL (80.0-98.0); Mean Platelet Volume 9.4 fL (9.4-12.3); Monocytes Absolute Auto 0.8 X10*3/uL (0.1-1.2); Monocytes Percent Auto 7.2 % (2-11); Neutrophils Absolute Auto 7.2 x10*3/uL (2.0-8.3); Neutrophils Percent Auto 61.2 % (45-73); Platelet Count 354 X10*3/uL (160-400); Red Blood Count 4.87 X10*6/uL (4.20-5.50); Red Cell Distribution Width 13.2 % (11.0-16.0); White Blood Count 11.7 X10*3/uL (4.8-10.8)
[2021-10-16 06:45] LABS: Alanine Aminotransferase 30 U/L (0-31); Albumin Level 3.8 g/dL (3.5-5.0); Alkaline Phosphatase 92 U/L (39-117); Anion Gap 13 (12-20); Aspartate Amino Transferase 20 U/L (5-31); Bilirubin Total 0.3 mg/dL (0.0-1.0); Blood Urea Nitrogen 15 mg/dL (9-16); Calcium 8.6 mg/dL (8.4-10.2); Carbon Dioxide 30 mmol/L (22-29); Chloride 100 mmol/L (96-108); Creatinine Clr Calc Pharmacy 76.2; Estimated Glomerular Filt Rate > 60; Glucose Fasting 112 mg/dL (60-99); Potassium 4.3 mmol/L (3.3-5.1); Sodium 139 mmol/L (135-145); Total Protein 6.6 g/dL (6.5-8.0)
[2021-10-16 07:44] LABS: Glucose, Whole Blood 90 mg/dL (60-115)
[2021-10-16] MEDS: rifAXIMin 550 MG TABLET PO ×3 (08:14→20:05)
[2021-10-16] MEDS: carisoprodoL 350 MG TABLET PO ×2 (08:14→20:05)
[2021-10-16] MEDS: Escitalopram Oxalate 10 MG TABLET PO (08:14)
[2021-10-16] MEDS: ALPRAZolam 0.5 MG TABLET 1 MG PO ×2 (09:52→20:05)
[2021-10-16 11:55] LABS: Glucose, Whole Blood 115 mg/dL (60-115)
[2021-10-16 15:48] LABS: Glucose, Whole Blood 142 mg/dL (60-115)
--- NOTE | 2021-10-16 16:36 | P.PNIM_ITS ---
Subjective Subjective Date of Service: 10/16/21 Interval History: notes improvement; was able to void spontaneously without the need of straight cath Review of Systems denies chest pain Denies shortness of breath Denies nausea vomiting diarrhea Denies fever chills Physical Exam Vital Signs: Vital Signs: Last Vital Signs Temp 96.9 F 10/16/21 16:00 Pulse 100 10/16/21 16:00 Resp 18 10/16/21 16:00 BP 133/74 10/16/21 16:00 Pulse Ox 93 10/16/21 16:00 O2 Del Method 10/16/21 16:00 BMI result Body Mass Index 38.5 Const: Other: awake alert in no acute distress Resp: Other: clear to auscultation bilaterally no rales or wheezes Cardio: Other: no S4; positive S1-S2; no S3 murmurs rubs or gallops GI: Other: soft nontender nondistended normoactive bowel sounds x4 Neuro: Other: cranial nerves 2-12 grossly intact as tested. Motor is 5/5 in all extremities sensation is intact. Gait is not observed. Cognition appropriate Extrem: Other: no edema bilaterally Objective Data Active Medications Alprazolam (Alprazolam 0.5 Mg Tablet) 1 mg PO QID PRN PRN Reason: Anxiety Last Admin: 10/16/21 09:52 Dose: 1 mg Documented By: ALONDRA Carisoprodol (Carisoprodol 350 Mg Tablet) 350 mg PO BID [facility] Last Admin: 10/16/21 08:14 Dose: 350 mg Documented By: JESUS Escitalopram Oxalate (Escitalopram Oxalate 10 Mg Tablet) 10 mg PO DAILY [facility] Last Admin: 10/16/21 08:14 Dose: 10 mg Documented By: JESUS Hydromorphone HCl (Hydromorphone Hcl 1 Mg/Ml Syringe) 1 mg IVPUSH Q6H PRN; Protocol PRN Reason: Pain, Severe (Pain Scale 7-10) Last Admin: 10/16/21 14:22 Dose: 1 mg Documented By: ALONDRA Ceftriaxone Sodium 1 gm/ (Sodium Chloride) 50 mls @ 100 mls/hr IV Q24H [facility] Last Infusion: 10/15/21 18:50 Dose: 0 mls/hr Documented By: NA Insulin Glargine (Insulin Glargine,Hum.Rec.Anlog 100 Unit/Ml 10 Ml Vial) 50 unit SUBCUT BEDTIME [facility] Last Admin: 10/15/21 20:06 Dose: 50 unit Documented By: NA Insulin Human Lispro (Insulin Lispro 100 Unit/Ml 3 Ml Vial) 0 unit SUBCUT QIDACHS [facility]; Protocol Last Admin: 10/16/21 12:00 Dose: Not Given Documented By: ALONDRA Non-Admin Reason: No Insulin Coverage Mirtazapine (Mirtazapine 30 Mg Tablet) 30 mg PO BEDTIME [facility] Last Admin: 10/15/21 20:04 Dose: 30 mg Documented By: NA Omeprazole (Omeprazole 20 Mg Capsule.Dr) 20 mg PO BID@0630,1630 [facility] Last Admin: 10/16/21 05:31 Dose: 20 mg Documented By: LINDA Ondansetron HCl (Ondansetron Hcl 4 Mg/2 Ml Vial) 4 mg IVPUSH Q8H PRN PRN Reason: Nausea Last Admin: 10/16/21 13:52 Dose: 4 mg Documented By: TESS Oxycodone HCl (Oxycodone Hcl Immed Release 5 Mg Tablet) 10 mg PO Q4H PRN PRN Reason: Pain, Moderate (Pain Scale 4-6 Last Admin: 10/16/21 13:50 Dose: 10 mg Documented By: TESS Pharmacy Consult (Consult Rx Perform Med Rec) 1 each MISCELLANE ONCE PRN PRN Reason: Consult order Pharmacy Consult (Consult Rx Perform Med Rec) 1 each MISCELLANE ONCE PRN PRN Reason: Consult order Rifaximin (Rifaximin 550 Mg Tablet) 550 mg PO TID [facility] Last Admin: 10/16/21 14:22 Dose: 550 mg Documented By: ALONDRA Sodium Chloride (0.9 % Sodium Chloride Flush 3 Ml Syringe) 3 ml IVFLUSH QSHIFT [facility] Last Admin: 10/16/21 08:15 Dose: 3 ml Documented By: JESUS Labs CBC & Chem 7: 10/16/21 05:55 10/16/21 05:55 Labs: Laboratory Results - last 24 hr 10/15/21 10/16/21 10/16/21 18:51 05:55 05:55 MCV 88.7 MCH 28.3 MCHC 31.9 RDW 13.2 Plt Count 354 MPV 9.4 Immature Gran % (Auto) 0.4 Neut % (Auto) 61.2 Lymph % (Auto) 29.7 Dent % (Auto) 7.2 Eos % (Auto) 1.1 Baso % (Auto) 0.4 Lymph # (Auto) 3.5 Dent # (Auto) 0.8 Eos # (Auto) 0.1 Baso # (Auto) 0.1 Abs Immat Gran (auto) 0.05 H Absolute Neuts (auto) 7.2 Absolute Nucleated RBC 0.000 Nucleated RBC % (auto) 0.0 Anion Gap 13 Estim Creat Clear Calc 76.2 Estimated GFR > 60 POC Glucose 173 H Fasting Glucose 112 H Calcium 8.6 Total Bilirubin 0.3 AST 20 ALT 30 Alkaline Phosphatase 92 Total Protein 6.6 Albumin 3.8 10/16/21 10/16/21 10/16/21 07:38 11:29 15:41 MCV MCH MCHC RDW Plt Count MPV Immature Gran % (Auto) Neut % (Auto) Lymph % (Auto) Dent % (Auto) Eos % (Auto) Baso % (Auto) Lymph # (Auto) Dent # (Auto) Eos # (Auto) Baso # (Auto) Abs Immat Gran (auto) Absolute Neuts (auto) Absolute Nucleated RBC Nucleated RBC % (auto) Anion Gap Estim Creat Clear Calc Estimated GFR POC Glucose 90 115 142 H Fasting Glucose Calcium Total Bilirubin AST ALT Alkaline Phosphatase Total Protein Albumin Microbiology Microbiology Results: Microbiology 10/13/21 19:06 Blood Culture - Preliminary Blood - Venous No growth after 48 hours. 10/13/21 19:06 Blood Culture - Preliminary Blood - Venous No growth after 48 hours. Assessment and Plan (1) Acute UTI: Status: Acute (2) Paresthesia: Status: Acute (3) Diabetes type 2, uncontrolled: Status: Acute Plan 55 y/o with history of seizure disorder, HTN, anxiety/depression, multiple sclerosis, HTN, gastroparesis, LUISA who presents to the ER via EMS with worsening left knee pain s/p fall 3 days ago as well as dizziness and nausea. ER evaluation consistent with acute UTI. 1.Acute UTI -Ceftriaxone 1g q24h.... switch to Ceftin upon DC -urine E coli sensitive to ceftriaxone 2. Multiple Parasthesias - MRI cervical and thoracic spine along with brain essentially unremarkable - will discuss with Neurology 3.Diabetes -Continue Lantus at outpatient dosing.. adjust as indicated -lispro correctional scale -diabetic diet 4. Anxiety - continue outpatient therapies 5. Hypertension - acceptable control - continue outpatient therapies.... adjust as indicated Full Code sequentials requires ongoing hospitalization for IV antibiotics pending urine culture Quality Stroke Does the patient have a stroke diagnosis?: No VTE Prior VTE?: No VTE Risk Level:: Medical - moderate - high VTE Device Contraindication: Treatment Not Indicated VTE Drug Contraindication: N/A - Med Ordered
[2021-10-16] MEDS: cefTRIAXone sodium 1 GM in 0.9 % Sodium Chloride 50 ML IV (17:36)
[2021-10-16 19:44] LABS: Glucose, Whole Blood 146 mg/dL (60-115)
[2021-10-16] MEDS: Mirtazapine 30 MG TABLET PO (20:05)
[2021-10-16] MEDS: Insulin Glargine,Hum.rec.anlog 100 UNIT/ML 10 ML VIAL 50 UNIT SUBCUT (20:06)
--- NOTE | 2021-10-16 21:40 | PC.NURSE ---
Administered dialudid to patient as well as all other anxiety and medications that were due. Educated patient on effects of narcotics on body systems, may be contributing to inability to urinate. Explained to patient narcotics slow the bowel and can stop urinary function also effect breathing and BP. Patient states dilaudid does not work for her, states she prefers oxycodone instead. Plan made with patient to only administer oxycodone going forward since SHE states dilaudid did not work for her and patient agreed. Now patient is complaining that I was refusing to give her dilaudid and wants another nurse. States she spoke with her and this nurse was rude to her. States she asked me for ice water and a heating pad and this nurse ignored her. Patient did not ask me for those things. Informed patient will have her speak to account group supervisor.
[2021-10-17] MEDS: 0.9 % Sodium Chloride Flush 3 ML SYRINGE IVFLUSH ×2 (00:55→08:02)
[2021-10-17 03:31] VITALS: BP 142/53; PULSE 76; RESP 16; TEMP 36.3; O2SAT 99
[2021-10-17] MEDS: oxyCODONE HCl Immed Release 5 MG TABLET 10 MG PO ×2 (06:08→10:51)
[2021-10-17] MEDS: Omeprazole 20 MG CAPSULE.DR PO (06:08)
[2021-10-17 06:22] LABS: MANUAL DIFF FLAG NO
[2021-10-17 06:38] LABS: Basophils Absolute Auto 0.1 X10*3/uL (0.0-0.2); Basophils Percent Auto 0.5 % (0-2); Eosinophils Absolute Auto 0.2 X10*3/uL (0.0-0.4); Eosinophils Percent Auto 1.9 % (0-4); Hematocrit 40.3 % (37.0-47.0); Imm Gran Abs Auto 0.03 X10*3/uL (0.00-0.03); Imm Gran Pct Auto 0.3 % (0.0-0.4); Lymphocytes Absolute Auto 3.6 X10*3/uL (1.2-4.9); Lymphocytes Percent Auto 35.5 % (20-40); Mean Corpuscular HGB Conc 32.3 g/dl (31.0-35.0); Mean Corpuscular Hemoglobin 28.8 pg (27.0-33.0); Mean Corpuscular Volume 89.4 fL (80.0-98.0); Mean Platelet Volume 9.4 fL (9.4-12.3); Monocytes Absolute Auto 0.7 X10*3/uL (0.1-1.2); Monocytes Percent Auto 6.7 % (2-11); Neutrophils Absolute Auto 5.6 x10*3/uL (2.0-8.3); Neutrophils Percent Auto 55.1 % (45-73); Platelet Count 340 X10*3/uL (160-400); Red Blood Count 4.51 X10*6/uL (4.20-5.50); Red Cell Distribution Width 13.4 % (11.0-16.0); White Blood Count 10.2 X10*3/uL (4.8-10.8)
[2021-10-17 06:51] LABS: Alanine Aminotransferase 25 U/L (0-31); Albumin Level 3.7 g/dL (3.5-5.0); Alkaline Phosphatase 92 U/L (39-117); Anion Gap 11 (12-20); Aspartate Amino Transferase 18 U/L (5-31); Bilirubin Total 0.4 mg/dL (0.0-1.0); Blood Urea Nitrogen 12 mg/dL (9-16); Calcium 8.4 mg/dL (8.4-10.2); Carbon Dioxide 32 mmol/L (22-29); Chloride 101 mmol/L (96-108); Creatinine Clr Calc Pharmacy 82.3; Estimated Glomerular Filt Rate > 60; Glucose Fasting 63 mg/dL (60-99); Potassium 4.1 mmol/L (3.3-5.1); Sodium 140 mmol/L (135-145); Total Protein 6.2 g/dL (6.5-8.0)
[2021-10-17 07:42] LABS: Glucose, Whole Blood 64 mg/dL (60-115)
[2021-10-17 07:53] VITALS: BP 119/69; PULSE 82; RESP 17; TEMP 36.3; O2SAT 94
[2021-10-17] MEDS: carisoprodoL 350 MG TABLET PO (08:02)
[2021-10-17] MEDS: Escitalopram Oxalate 10 MG TABLET PO (08:03)
[2021-10-17] MEDS: rifAXIMin 550 MG TABLET PO (08:03)
[2021-10-17] MEDS: ALPRAZolam 0.5 MG TABLET 1 MG PO (08:40)
[2021-10-17] MEDS: HYDROmorphone HCl 1 MG/ML SYRINGE IVPUSH (08:41)
[2021-10-17] MEDS: ondansetron HCL 4 MG/2 ML VIAL IVPUSH (10:56)
--- NOTE | 2021-10-17 11:02 | P.DS_ITS ---
DS: Providers Provider Date of Service: 10/17/21 Date of admission: 10/13/21 18:07 Date of discharge: 10/17/21 Primary care physician: Joshua Cardenas MD Consults: 10/15/21 08:53 Consult to Neurology Routine Consulting Provider: [facility] [place] [place] [facility] [place] [facility] Reason for consultation: Query MS exacerbation Has provider been notified: No DS: Diagnosis Discharge Diagnosis (1) Acute UTI: Status: Acute (2) Paresthesia: Status: Acute (3) Diabetes type 2, uncontrolled: Status: Acute DS: Summary Hospital Course Hospital Course: 55 y/o with history of seizure disorder, HTN, anxiety/depression, multiple sclerosis, HTN, gastroparesis, LUISA who presents to the ER via EMS with worsening left knee pain s/p fall 3 days ago as well as dizziness and nausea.? She states her gait has been unsteady since that time and has worsened over the past couple weeks.? Also states she has not felt right and her sugars have been out of control.? In the emergency room, workup significant for leukocytosis and active urine sediment. Hospital Course patient admitted to general medical floor and treated with empiric ceftriaxone pending cultures. Ultimately urine grew out E coli sensitive to ceftriaxone for which she will be discharged on a course of oral Ceftin. During her hospitalization, there was concern for some saddle anesthesia after her fall; MRI of lumbar spine failed to demonstrate any acute pathology. She was seen in consultation by Neurology as she stated she was given a diagnosis of multiple sclerosis and was concern for an exacerbation. MRI of thoracic and cervical spine failed to demonstrate any concerning lesions as did lumbar spine failed as well. MRI of the brain reviewed by Dr. Kaur. At this point in time he states he cannot make a definitive diagnosis however will follow-up as outpatient. She did have some urinary retention for which she was straight cathed; in the last 24 hours prior to discharge she was voiding spontaneously without significant PVR. She is medically acceptable to be discharged on a course of oral Ceftin and follow up with PCP and Neurology Time Spent with Patient Time attestation: Total time spent providing and/or coordinating discharge services: Discharge coordination time: Greater than 30 minutes Quality: Safe Use of Opioids Does Pt have an Active Cancer Diagnosis on the Problem List?: No Quality: Stroke Does the patient have a stroke diagnosis?: No Physical Exam Vital Signs: Vital Signs: Last Vital Signs Temp 97.4 F 10/17/21 07:53 Pulse 82 10/17/21 07:53 Resp 17 10/17/21 07:53 BP 119/69 10/17/21 07:53 Pulse Ox 94 10/17/21 07:53 O2 Del Method 10/17/21 07:53 BMI result Body Mass Index 38.5 Const: Other: no acute distress Resp: Other: clear to auscultation bilaterally no rales rhonch Cardio: Other: no S4; positive S1-S2; no S3 murmurs rubs or GI: Other: soft nontender bowel sounds Extrem: Other: no edema bilaterally DS: Data Data Completed and Pending Labs on day of discharge: Laboratory Results - last 24 hr 10/16/21 10/16/21 10/16/21 11:29 15:41 19:39 WBC RBC Hgb Hct MCV MCH MCHC RDW Plt Count MPV Immature Gran % (Auto) Neut % (Auto) Lymph % (Auto) [place] % (Auto) Eos % (Auto) Baso % (Auto) Lymph # (Auto) [place] # (Auto) Eos # (Auto) Baso # (Auto) Abs Immat Gran (auto) Absolute Neuts (auto) Absolute Nucleated RBC Nucleated RBC % (auto) Sodium Potassium Chloride Carbon Dioxide Anion Gap BUN Creatinine Estim Creat Clear Calc Estimated GFR POC Glucose 115 142 H 146 H Fasting Glucose Calcium Total Bilirubin AST ALT Alkaline Phosphatase Total Protein Albumin 10/17/21 10/17/21 10/17/21 05:56 05:56 07:26 WBC 10.2 RBC 4.51 Hgb 13.0 Hct 40.3 MCV 89.4 MCH 28.8 MCHC 32.3 RDW 13.4 Plt Count 340 MPV 9.4 Immature Gran % (Auto) 0.3 Neut % (Auto) 55.1 Lymph % (Auto) 35.5 [place] % (Auto) 6.7 Eos % (Auto) 1.9 Baso % (Auto) 0.5 Lymph # (Auto) 3.6 [place] # (Auto) 0.7 Eos # (Auto) 0.2 Baso # (Auto) 0.1 Abs Immat Gran (auto) 0.03 Absolute Neuts (auto) 5.6 Absolute Nucleated RBC 0.000 Nucleated RBC % (auto) 0.0 Sodium 140 Potassium 4.1 Chloride 101 Carbon Dioxide 32 H Anion Gap 11 L BUN 12 Creatinine 0.76 Estim Creat Clear Calc 82.3 Estimated GFR > 60 POC Glucose 64 Fasting Glucose 63 Calcium 8.4 Total Bilirubin 0.4 AST 18 ALT 25 Alkaline Phosphatase 92 Total Protein 6.2 L Albumin 3.7 Preliminary micro results at discharge 10/13/21 19:06 Blood Culture - Preliminary Blood - Venous No growth after 48 hours. 10/13/21 19:06 Blood Culture - Preliminary Blood - Venous No growth after 48 hours. Discharge Plan Discharge Patient Disposition: Home Health Service Discharge Diagnosis: Acute UTI EColi Referrals: Joshua Cardenas MD [Primary Care Provider] - 1 Week Discharge Medications: New oxycodone 5 mg Tablet 10 mg PO Q4H PRN (Reason: Pain, Moderate (Pain Scale 4-6) Qty: 15 0RF Rx Instructions: Partial Fill upon patient request. cefuroxime axetil 500 mg tablet 500 mg PO BID 7 Days Qty: 14 0RF Continued lansoprazole 30 mg capsule,delayed release(DR/EC) 30 mg PO BID 30 Days Qty: 60 3RF rifaximin 550 mg tablet 550 mg PO TID 14 Days Qty: 42 0RF simethicone 125 mg tablet,chewable 125 mg PO TID PRN (Reason: for abdominal pain) Qty: 90 2RF carisoprodol 350 mg tablet 1 tab PO BID mirtazapine 30 mg tablet 1 tab PO BEDTIME insulin glargine [Lantus Solostar U-100 Insulin] 100 unit/mL (3 mL) insulin pen 50 unit subcut BEDTIME alprazolam 1 mg Tablet 1 mg PO QID PRN (Reason: Anxiety) ondansetron 4 mg tablet,disintegrating 4 mg PO Q8H PRN (Reason: Nausea And Vomiting) simethicone 125 mg Tablet,Chewable 125 mg PO TIDWMEAL Rx Instructions: TAKE TID AFTER MEALS (DME) pen needle, diabetic 29 gauge x 1/2 needle See Rx Instructions .ROUTE .MEDSUPPLY Qty: 100 Rx Instructions: As directed insulin aspart U-100 100 unit/mL (3 mL) insulin pen See Protocol subcut TIDAC Protocol: Insulin Correction Scale Less than or equal to 110 ---- Give (units): 0 111 to 150 Give (units): 0 151 to 200 Give (units): 2 201 to 250 Give (units): 4 251 to 300 Give (units): 6 301 to 350 Give (units): 8 Greater than 350 Give (units): 10 Call MD if Blood Glucose > : 350 ergocalciferol (vitamin D2) 1,250 mcg (50,000 unit) capsule 1,250 mcg PO MO fluticasone propion-salmeterol [Wixela Inhub] 100-50 mcg/dose blister with device 1 inh PO BID Trulicity 1.5 mg/0.5 mL pen injector 1.5 mg subcut FR escitalopram oxalate 10 mg tablet 10 mg PO DAILY Discharge Orders: Discharge Order (Routine); Ordered 10/17/21 Ordered By: Robert Braga Diet: advance to usual diet Activity on Discharge: As tolerated Stand Alone Forms: Patient Portal Discharge page Care Plan Goals: complete course of antibiotics for urinary tract infection Health Concerns: follow-up with Dr. Kaur ( neurology) in 1-2 weeks to review diagnostic imaging Plan of Treatment: follow-up with PCP in 1-2 weeks Assessment: see discharge summary
[2021-10-17 11:22] LABS: Glucose, Whole Blood 101 mg/dL (60-115)
--- NOTE | 2021-10-17 11:48 | MHC.CM.PN ---
PATIENT IS RETURNING HOME TODAY WITH RESUMPTION OF HER SERVICES. SON TO PROVIDE TRANSPORT. IMM 10/17 IN CHART
[2021-10-17 12:00] VITALS: BP 131/69; PULSE 91; RESP 18; TEMP 36.6; O2SAT 94
== END 2021-10-17 14:00 | disposition home health service (06) | DRG 690 ==
LOC: HO.ED 17:39 → HO.EDOVER 18:25 → HO.S3 20:00
PROVIDERS: Physician Assistant; Admitting Provider Hospitalist; Emergency Provider Emergency Medicine; PCP Family Medicine; Visit Provider Hospitalist
DX: N39.0 Urinary tract infection, site not specified (principal); G35 Multiple sclerosis; G47.33 Obstructive sleep apnea (adult) (pediatric); E11.649 Type 2 diabetes mellitus with hypoglycemia without coma; I10 Essential (primary) hypertension; F41.9 Anxiety disorder, unspecified; R33.9 Retention of urine, unspecified; Z91.013 Allergy to seafood; Z20.822 Contact with and (suspected) exposure to COVID-19; Z88.0 Allergy status to penicillin; Z88.6 Allergy status to analgesic agent; Z88.8 Allergy status to other drugs, medicaments and biological substances; Z79.4 Long term (current) use of insulin; Z79.52 Long term (current) use of systemic steroids; Z79.899 Other long term (current) drug therapy
CPT/HCPCS: 36415; 70450; 70551; 72125; 72156; 72157; 72158; 73564; 80048; 80053; 80076; 80143; 80307; 81001; 82550; 82947; 83605; 83735; 85025; 87040; 87086; 87088; 87186; 87635; 93005; 96365; 97116; 97162; 99285; A9585; J0696; J1170; J2405

== ENCOUNTER 2021-12-25 16:26 | Emergency (ER) | payer OTHER, SELFPAY ==
[2021-12-25 18:16] VITALS: BP 123/78; PULSE 79; RESP 16; TEMP 36.3; O2SAT 96; BMI 35.4
--- NOTE | 2021-12-25 20:15 | ED_ITS ---
HPI - General Adult General Chief complaint: Extremity Injury, Lower Stated complaint: severe l leg pain Time Seen by Provider: 12/25/21 20:03 Source: patient Mode of arrival: ambulatory Limitations: no limitations History of Present Illness HPI narrative: Patient is a 56 year old female presenting to the emergency department today with chronic left knee pain. Patient states that her left knee has been giving her problems for a long time and today, it is significantly worse. Patient states she is concerned she twisted it while leaning against her barbecue pit. Patient denies any dizziness, lightheadedness, abdominal pain, nausea, vomiting, fever, chills, blurry vision, double vision, loss of vision, chest pain, difficulty breathing, shortness of breath, back pain, night sweats, pain with urination, increased urinary frequency, increased urinary urgency, blood in her urine or stool, syncope or a near syncopal episode, bowel incontinence, bladder incontinence, bowel retention, bladder retention, or any other complaints at this time. Onset (ago): year(s) Location: left and lower extremity Radiation: non-radiation Severity: mild Severity scale (1-10): 3 Quality: dull Pain Consistency: constant Relieving factors: none Exacerbating factors: movement Associated symptoms: denies other symptoms Treatments prior to arrival: none Related Data Home Medications Medication Instructions Recorded Confirmed alprazolam 1 mg tablet 1 mg PO QID PRN Anxiety 02/25/20 10/13/21 carisoprodol 350 mg tablet 1 tab PO BID 02/25/20 10/13/21 insulin glargine 100 unit/mL (3 50 unit subcut BEDTIME 02/25/20 10/13/21 mL) subcutaneous pen (Lantus Solostar U-100 Insulin) mirtazapine 30 mg tablet 1 tab PO BEDTIME 02/25/20 10/13/21 insulin aspart U-100 100 unit/mL See Protocol subcut TIDAC 08/05/20 10/13/21 (3 mL) subcutaneous pen pen needle, diabetic 29 gauge x #100 ea 08/05/20 08/05/20 1/2 dulaglutide 1.5 mg/0.5 mL 1.5 mg subcut FR 08/17/21 10/13/21 subcutaneous [facility] ergocalciferol (vitamin D2) 1,250 1,250 mcg PO MO 08/17/21 10/13/21 mcg (50,000 unit) capsule escitalopram oxalate 10 mg tablet 10 mg PO DAILY 08/17/21 10/13/21 fluticasone 100 mcg-salmeterol 50 1 inh PO BID 08/17/21 10/13/21 mcg/dose blistr powdr for inhalation (Betsyxela Inhub) ondansetron 4 mg disintegrating 4 mg PO Q8H PRN Nausea And Vomiting 10/13/21 10/13/21 tablet simethicone 125 mg chewable tablet 125 mg PO TIDWMEAL 10/14/21 10/14/21 Previous Rx's Medication Instructions Recorded lansoprazole 30 mg capsule,delayed 30 mg PO BID 30 days #60 caps 03/04/21 release rifaximin 550 mg tablet 550 mg PO TID 2 weeks #42 tabs 08/17/21 simethicone 125 mg chewable tablet 125 mg PO TID PRN for abdominal 09/28/21 pain #90 tabs cefuroxime axetil 500 mg tablet 500 mg PO BID 7 days #14 tabs 10/17/21 oxycodone 5 mg tablet 10 mg PO Q4H PRN Pain, Moderate 10/17/21 (Pain Scale 4-6 #15 tabs hydrocodone 5 mg-acetaminophen 325 1 tab PO DAILY PRN pain #3 tabs 12/25/21 mg tablet Allergies Allergy/AdvReac Type Severity Reaction Status Date / Time shellfish derived Allergy Intermediate ANAPHYLAXIS Verified 08/17/21 12:04 [SHELLFISH DERIVED] aspirin [ASPIRIN] Allergy Unknown ANAPHYLAXIS Verified 08/17/21 12:04 gabapentin [GABAPENTIN] Allergy Unknown ANAPHYLAXIS Verified 08/17/21 12:04 ketorolac [From TORADOL] Allergy Unknown Hives Verified 08/17/21 12:04 Penicillins [PENICILLINS] Allergy Unknown HIVES Verified 08/17/21 12:04 Review of Systems Constitutional: Constitutional: Reports no additional constitutional complaints, Denies chills, Denies fever(s) and Denies night sweats Eyes: Eyes: Reports no additional eye complaints, Denies blurry vision, Denies change in vision, Denies diplopia, Denies eye discharge, Denies loss of vision and Denies eye pain ENT: Denies dizziness Cardiovascular: Cardiovascular: Reports no additional cardiovascular complaints, Denies chest pain, Denies lightheadedness, Denies Loss of Consciousness and Denies dyspnea Respiratory: Respiratory: Reports no additional respiratory complaints and Denies dyspnea Gastrointestinal: Gastrointestinal: Reports no additional gastrointestinal complaints, Denies abdominal pain, Denies melena, Denies hematochezia, Denies change in bowel habits and Denies change in stool character Genitourinary: Genitourinary: Denies hematuria, Denies urinary frequency, Denies dysuria, Denies urinary incontinence, Denies urinary hesitancy and Denies urinary urgency Musculoskeletal: Musculoskeletal: Reports no additional musculoskeletal complaints, Denies numbness and Denies tingling Comments: chronic left knee pain Neurologic: Denies dizziness, Denies loss of vision, Denies numbness and Denies tingling Psychiatric: Psychiatric: Reports no additional psychiatric complaints Endocrine: Endocrine: Reports no additional endocrine complaints Hematologic/Lymphatic: Hematologic/Lymphatic: Reports no additional hematologic/lymphatic complaints Allergic/Immunologic: Allergic/Immunologic: Reports no additional allergic/immunologic complaints PMFSH Past Medical History Attestation statement: The following information was validated with the patient. Source: old records reviewed Medical History Anxiety Cervical cancer Diabetes Diabetes type 2, uncontrolled Diarrhea Dizziness Encephalopathy chronic Fracture of fifth metatarsal bone Hx of abdominal pain Hypertension Kidney stones Knee pain, left MS (multiple sclerosis) Multiple falls Pseudoseizures Stomach cancer TIA (transient ischemic attack) Surgical History History of esophagogastroduodenoscopy (EGD) History of neck surgery Hx of arthroscopy of knee Hx of cholecystectomy Hx of colonoscopy Hx of knee surgery Hx of sinus surgery Hx of ventral hernia repair Total knee replacement status Family History Family History Mother Cancer Brother Cancer Stomach problems Acid reflux Social History Social History Household Members: Spouse Housing: House Do you presently have visiting nurse or other home services: Yes Alcohol intake: never Patient Tobacco Use Status: Never used Tobacco Advance Directives: No service: No Current occupational status: disabled Physical Exam ED Vital Signs: Vital Signs - 24 hr 12/25/21 18:16 Temperature 97.3 F Pulse Rate 79 Respiratory Rate 16 Blood Pressure 123/78 Pulse Oximetry 96 Oxygen Delivery Method Room Air BMI result Body Mass Index 35.4 Const General: cooperative, no acute distress, alert and awake Nutritional Appearance: well nourished Orientation/consciousness: patient oriented x3 Limitations: no limitations HENMT Head: Yes normal to inspection and Yes atraumatic Ears: hearing grossly normal bilaterally and external ears normal General nose exam: Normal external nose present, no nasal discharge noted and no epistaxis Face and sinus: Yes normal facial exam, No abrasion and No laceration Mouth: Normal oral and palatal mucosa present, no drooling and no muffled voice Eyes General: appearance normal, both eyes and all related structures Periorbital: periorbital findings normal Eyelids: Yes eyelids normal Conjunctivae: conjunctivae normal Pupils: Equal, round and reactive pupils present EOM: EOMs intact bilaterally Neck Neck: Yes normal visual inspection, Yes full ROM and Yes no lymphadenopathy Chest Chest palpation & inspection: normal inspection of the chest Resp Effort & Inspection: normal respiratory effort and able to speak in complete sentences Auscultation: clear to auscultation bilaterally Cardio Rate: regular rate Rhythm: regular rhythm GI Inspection: Yes normal to inspection Neuro General: patient oriented x3 and moves all extremities Cranial nerves: Yes Equal, round and reactive pupils present Cognition (Neuro): normal cognition Motor exam (neuro): 5/5 motor strength present throughout Sensory Exam: Normal double simultaneous stimulation for sensation Coordination: [id number] test normal Extrem General: Yes normal to inspection, Yes full ROM and Yes capillary refill normal Psych Appearance: grossly normal Mental Status: mental status grossly normal Affect: normal affect Attitude: cooperative Thought process: Normal thought process present Thought content: Normal thought content present Insight: Good insight present (Psych) Procedures Orthopedic Splinting/Casting Injury #1: Side: left Lower Extremity Injury Location: knee Lower Extremity Immobilizer: knee immobilizer Medical Decision Making MDM Narrative Medical decision making narrative: Patient is a 56 year old female presenting to the emergency department today with chronic left knee pain. Patient's physical exam was unremarkable. I explained my physical exam findings to the patient. I answered all questions asked by the patient. Patient received PO [place] which she stated helped her symptoms significantly. I stressed the importance of the patient taking her medication as prescribed. I stressed the importance of the patient following up with her primary care provider. I stressed the importance of the patient returning to the emergency department immediately if her symptoms were to worsen or if she were to develop any dizziness, shortness of breath, difficulty breathing, chest pain, blurry vision, loss of vision, nausea, vomiting, abdominal pain, fever, chills, back pain, or any other complaints. Patient verbalized agreement and understanding with this treatment plan and discharge. Differential Diagnosis Differential Diagnosis: chronic left knee pain Medical Records Medical records reviewed: Yes I reviewed the patient's medical records. Discharge Plan Discharge Clinical Impression: Chronic knee pain Patient Disposition: Home, Self-Care Instructions: Knee Pain (ED) Additional Instructions: Follow up with your primary care provider and an orthopedic provider. Return to the emergency department immediately if your symptoms worsen or if you develop any dizziness, shortness of breath, difficulty breathing, chest pain, blurry vision, loss of vision, nausea, vomiting, abdominal pain, fever, chills, back pain, or any other complaints. Prescriptions: New hydrocodone-acetaminophen 5-325 mg tablet 1 tab PO DAILY PRN (Reason: pain) Qty: 3 0RF Rx Instructions: Partial Fill upon patient request. No Action lansoprazole 30 mg capsule,delayed release(DR/EC) 30 mg PO BID 30 Days Qty: 60 3RF rifaximin 550 mg tablet 550 mg PO TID 14 Days Qty: 42 0RF simethicone 125 mg tablet,chewable 125 mg PO TID PRN (Reason: for abdominal pain) Qty: 90 2RF carisoprodol 350 mg tablet 1 tab PO BID mirtazapine 30 mg tablet 1 tab PO BEDTIME insulin glargine [Lantus Solostar U-100 Insulin] 100 unit/mL (3 mL) insulin pen 50 unit subcut BEDTIME alprazolam 1 mg Tablet 1 mg PO QID PRN (Reason: Anxiety) ondansetron 4 mg tablet,disintegrating 4 mg PO Q8H PRN (Reason: Nausea And Vomiting) simethicone 125 mg Tablet,Chewable 125 mg PO TIDWMEAL Rx Instructions: TAKE TID AFTER MEALS oxycodone 5 mg Tablet 10 mg PO Q4H PRN (Reason: Pain, Moderate (Pain Scale 4-6) Qty: 15 0RF Rx Instructions: Partial Fill upon patient request. cefuroxime axetil 500 mg tablet 500 mg PO BID 7 Days Qty: 14 0RF (DME) pen needle, diabetic 29 gauge x 1/2 needle See Rx Instructions .ROUTE .MEDSUPPLY Qty: 100 Rx Instructions: As directed insulin aspart U-100 100 unit/mL (3 mL) insulin pen See Protocol subcut TIDAC Protocol: Insulin Correction Scale Less than or equal to 110 ---- Give (units): 0 111 to 150 Give (units): 0 151 to 200 Give (units): 2 201 to 250 Give (units): 4 251 to 300 Give (units): 6 301 to 350 Give (units): 8 Greater than 350 Give (units): 10 Call MD if Blood Glucose > : 350 ergocalciferol (vitamin D2) 1,250 mcg (50,000 unit) capsule 1,250 mcg PO MO fluticasone propion-salmeterol [Wixela Inhub] 100-50 mcg/dose blister with device 1 inh PO BID Trulicity 1.5 mg/0.5 mL pen injector 1.5 mg subcut FR escitalopram oxalate 10 mg tablet 10 mg PO DAILY Referrals: [facility] [Provider Group] Joshua Cardenas MD [Primary Care Provider] - Print Language: Liberian
[2021-12-25] MEDS: HYDROcodone Bit/Acetam 5/325 TABLET 1 TAB PO (21:24)
== END 2021-12-25 22:21 | disposition home or self-care (01) ==
PROVIDERS: Emergency Provider Emergency Medicine; PCP Family Medicine
DX: S83.92XA Sprain of unspecified site of left knee, initial encounter (principal); M79.605 Pain in left leg; X50.1XXA Overexertion from prolonged static or awkward postures, initial encounter; Y93.9 Activity, unspecified; Y92.9 Unspecified place or not applicable; Y99.9 Unspecified external cause status; Z79.899 Other long term (current) drug therapy
CPT/HCPCS: 29505; 99283